=== PATIENT | male | born 1955 | race Caucasian/White ===

== ENCOUNTER 2019-08-12 09:06 | Emergency (ER) | payer OTHER, SELFPAY ==
[2019-08-12] VITALS (35 sets, daily range): BP systolic 180–216; BP diastolic 82–93; PULSE 60–92; RESP 13–26; TEMP 36.8; O2SAT 98–100; BMI 19.2
--- NOTE | 2019-08-12 09:13 | ED_ITS ---
Entered by Halima Rivera, acting as scribe for Wm Hernandez DO HPI - SOB/Dyspnea General: Chief Complaint: Shortness of Breath/Dyspnea Stated Complaint: SOB Time Seen by Provider: 08/12/19 09:13 Source: patient Mode of arrival: ambulatory Limitations: no limitations History of Present Illness: HPI Narrative: 64 yo male presents with shortness of breath. pt states he feels like he can breath fine but he feels like he has something blocking his abdomen. pt states this started yesterday. pt has a appointment scheduled for Wednesday in [place] for atrial flow in his legs, because he states his legs burn while walking up a hill or walking to fast. pt denies any other symptoms at this time. MD elicited complaint: shortness of breath Onset (ago): day(s) (yesterday) Timing: constant Severity: moderate Exacerbating factors: exertion Relieving factors: nothing Associated symptoms: Reports abdominal pain; Deny dizziness, extremity pain, fever(s), palpitations, polydipsia, polyuria or syncope Treatment prior to arrival: none Related Data: Home oxygen amount: none Review of Systems Const: Denies: fever, chills, body aches, fatigue, malaise or night sweats Eyes: Denies: change in vision or blurry vision ENMT: Denies: throat pain, oral sores/lesions, dental pain, nasal discharge or nasal congestion Card: Denies: palpitations, irregular heart rhythm, edema or syncope Resp: Denies: shortness of breath, productive cough, non-productive cough or wheezing GI: Reports: abdominal pain : Denies: flank pain, difficulty urinating, painful urination, urinary frequency, urinary urgency, urinary incontinence or blood in urine Musc: Denies: neck pain, back pain, extremity pain, extremity swelling, joint pain or joint swelling Skin/Breast: Denies: rash, itching or redness Neuro: Denies: headache, numbness in extremities, weakness in extremities, changes in sensation, lack of coordination, difficulty walking, frequent falls, dizziness, vertigo or confusion Psych: Denies: anxiety, depression, loss of interest, visual hallucinations, auditory hallucinations, suicidal ideation or homicidal ideation Endo: Denies: excessive urination, excessive thirst, tired all the time or cold intolerance Madan/Lymph: Denies: easy bruising, easy bleeding, petechiae, enlarged lymph nodes or tender lymph nodes PFSH ED PFSH: Statuses (acute, chronic, etc) shown below reflect problem list status as previously entered and may not be historically accurate Medical History HTN (hypertension) (Acute) Surgical History H/O knee surgery (Acute) Social History Smoking and tobacco status: current every day smoker Physical Exam Const: COMMON NORMALS: average body habitus, oriented x3 and alert GENERAL APPEARANCE: cooperative, comfortable, well kempt and well developed NUTRITIONAL APPEARANCE: obese ORIENTATION/CONSCIOUSNESS: Yes awake, Yes oriented to person and Yes oriented to place HENMT: COMMON NORMALS: normocephalic, head/scalp atraumatic, EAC's normal, TM's normal bilaterally, external nose normal, moist oral mucous membranes and oropharynx normal HEAD & SCALP: normocephalic and atraumatic NOSE: external nose normal EXTERNAL AUDITORY CANAL: EAC's normal TYMPANIC MEMBRANE: TM's normal bilaterally MOUTH: oral and palatal mucosa normal, lip normal and tongue normal THROAT: posterior oropharynx normal and tonsils normal Eye: COMMON NORMALS: PERRL, EOMs intact bilaterally, conjunctivae normal and no scleral icterus CONJUNCTIVA: Yes conjunctivae normal PUPIL: Yes PERRL Neck/C-Spine: COMMON NORMALS: full ROM, no lymphadenopathy, supple, no meningeal signs and thyroid normal THYROID: thyroid normal and asymmetrical Lymph: LYMPHATIC: no lymphadenopathy noted Resp: COMMON NORMALS: normal respiratory effort, no retractions, no use of accessory muscles and clear to auscultation bilaterally AUSCULTATION: clear to auscultation bilaterally Cardio: COMMON NORMALS: regular rate and regular rhythm RATE: regular rate RHYTHM: regular rhythm HEART SOUNDS: no murmurs : COMMON NORMALS: Yes no CVA tenderness BLADDER/KIDNEY EXAM: Yes no CVA tenderness Back/Pelvis: COMMON NORMALS: no CVA tenderness LUMBAR SPINE/LOWER BACK: Yes normal to inspection Extremity: COMMON NORMALS: no clubbing, cyanosis or edema, no calf tenderness and no pedal edema Neuro: COMMON NORMALS: oriented x3 SENSORIUM/ORIENTATION: Yes alert, Yes oriented to person and Yes oriented to place MENINGEAL SIGNS: Yes no meningeal signs Psych: APPEARANCE: Yes well kempt Skin: COMMON NORMALS: no rashes or lesions noted and skin turgor normal GENERAL SKIN EXAM: no rashes or lesions noted and turgor normal Course ED course: He has had this intermittently for several months now. His blood pressure was elevated taken half of a dose of his blood pressure medicine morning made him take the other half as well as give him some hydralazine and did improve enough to let him go home. He is not particularly tachycardic or hypoxic do not believe he has a pulmonary emboli. The rest of exam is otherwise normal he does have a little fluid in his colon suspect he has little gastroenteritis. If he has worsening or change symptoms return he should follow-up with surgery or Dr. Frank for endoscopy. Vital Signs: Vital signs: Vital Signs Temperature 98.2 F 08/12/19 09:11 Pulse Rate 60 08/12/19 12:09 Respiratory Rate 16 08/12/19 12:09 Blood Pressure 190/85 08/12/19 12:09 Pulse Oximetry 100 08/12/19 12:09 MDM - SOB/Dyspnea Lab Data: Labs: Lab Results 08/12/19 08/12/19 08/12/19 Range/Units 09:13 09:13 09:13 WBC 11.3 H (4.0-10.0) 10^3/ uL RBC 4.50 (4.1-5.3) 10^6/u L Hgb 13.3 (11.7-16.6) g/dL Hct 40.1 L (42.0-52.0) % MCV 89.1 (80-94) fL MCH 29.6 (28.0-34.0) pg MCHC 33.2 (30.0-36.0) g/dL RDW 13.8 (12.1-15.1) % Plt Count 443 H (130-400) 10^3/c mm MPV 9.3 (7.4-10.4) fL Neut % (Auto) 65.1 % Lymph % (Auto) 27.0 % Hopkins % (Auto) 6.5 % Eos % (Auto) 0.4 % Baso % (Auto) 0.7 % Neut # (Auto) 7.4 (1.8-7.7) 10^3/u L Lymph # (Auto) 3.1 (0.8-4.8) 10^3/u L Hopkins # (Auto) 0.7 (0.2-0.9) 10^3/u L Eos # (Auto) 0.0 (0.0-0.8) 10^3/u L Baso # (Auto) 0.1 (0.0-0.1) 10^3/u L Nucleated RBC % (a uto) 0 % Nucleated RBCs # 0.0 /100WBC Sodium 137 (136-145) mmol/L Potassium 3.8 (3.5-5.1) mmol/L Chloride 101 (98-107) mmol/L Carbon Dioxide 19 L (22-29) mmol/L Anion Gap 20.8 H (5-19) BUN 13 (8-23) mg/dL Creatinine 1.3 H (0.7-1.2) mg/dL GFR Calculation 55.8 L (90-130) mL/min Glucose 102 (74-106) mg/dL Calcium 10.1 (8.8-10.2) mg/Dl Total Bilirubin 1.1 (0.15-1.2) mg/dL AST 12 (0-40) U/L ALT 8 (0-41) U/L Alkaline Phosphata se 170 H (40-130) IU/L Troponin T Baselin e 8 (0-15) ng/mL Troponin T 120 Min [place] (0-15) ng/mL Delta Troponin T (0-10) ABS# Total Protein 8.5 (6.6-8.7) g/dL Albumin 5.0 (3.5-5.2) g/dL Globulin 3.5 (1.3-4.6) g/dL Lipase 21 (13-60) U/L Influenza Type A A g (Negative) POC Influenza B Ag (Negative) 08/12/19 08/12/19 Range/Units 09:49 11:17 WBC (4.0-10.0) 10^3/ uL RBC (4.1-5.3) 10^6/u L Hgb (11.7-16.6) g/dL Hct (42.0-52.0) % MCV (80-94) fL MCH (28.0-34.0) pg MCHC (30.0-36.0) g/dL RDW (12.1-15.1) % Plt Count (130-400) 10^3/c mm MPV (7.4-10.4) fL Neut % (Auto) % Lymph % (Auto) % Hopkins % (Auto) % Eos % (Auto) % Baso % (Auto) % Neut # (Auto) (1.8-7.7) 10^3/u L Lymph # (Auto) (0.8-4.8) 10^3/u L Hopkins # (Auto) (0.2-0.9) 10^3/u L Eos # (Auto) (0.0-0.8) 10^3/u L Baso # (Auto) (0.0-0.1) 10^3/u L Nucleated RBC % (a uto) % Nucleated RBCs # /100WBC Sodium (136-145) mmol/L Potassium (3.5-5.1) mmol/L Chloride (98-107) mmol/L Carbon Dioxide (22-29) mmol/L Anion Gap (5-19) BUN (8-23) mg/dL Creatinine (0.7-1.2) mg/dL GFR Calculation (90-130) mL/min Glucose (74-106) mg/dL Calcium (8.8-10.2) mg/Dl Total Bilirubin (0.15-1.2) mg/dL AST (0-40) U/L ALT (0-41) U/L Alkaline Phosphata se (40-130) IU/L Troponin T Baselin e (0-15) ng/mL Troponin T 120 Min [place] 10.80 (0-15) ng/mL Delta Troponin T 2.80 (0-10) ABS# Total Protein (6.6-8.7) g/dL Albumin (3.5-5.2) g/dL Globulin (1.3-4.6) g/dL Lipase (13-60) U/L Influenza Type A A g Negative (Negative) POC Influenza B Ag Negative (Negative) Imaging Data^: CXR: Radiologist's impression: [address] [place] [address] XRay Report Signed Patient: Gab Longoria #: [id number] : 7Acct#:[id number] Age/Sex: 64 / MADM Date: 08/12/19 Loc: ERRoom/Bed: Attending Dr: Ordering Provider/Ordering MD: Wm Hernandez DO Date of Service: 08/12/19 Procedure(s): XR chest 1V portable [id number] Accession Number(s): [id number] Report Number: [id number] PROCEDURE INFORMATION: Exam: XR Chest, 1 View Exam date and time: 08/12/2019 9:21 AM Age: 64 years old Clinical indication: Shortness of breath; Additional info: Cehst pain TECHNIQUE: Imaging protocol: XR of the chest Views: 1 view. COMPARISON: CT chest wo con [id number] 02/28/2016 1:42 PM FINDINGS: Lungs: No focal consolidation. Pleural space: Unremarkable. No pleural effusion. No pneumothorax. Heart/Mediastinum: Atherosclerotic calcifications are noted within the aortic arch. No cardiomegaly. Bones/joints: Unremarkable for technique. XR/XR chest 1V portable [id number] IMPRESSION: No acute findings. Dictated By:Ramakrishna Mejia MD Signed By:Ramakrishna Mejia MDSigned Date/Time:08/12/19 1017 DD/ 1016 CT Abd/Pel: Radiologist's impression: [address] [place] [address] CT Scan Report Signed Patient: Gab Longoria #: [id number] : 7Acct#:[id number] Age/Sex: 64 / MADM Date: 08/12/19 Loc: ERRoom/Bed: Attending Dr: Ordering Provider/Ordering MD: Wm Hernandez DO Date of Service: 08/12/19 Procedure(s): CT abdomen pelvis w con* [id number] Accession Number(s): [id number] Report Number: [id number] PROCEDURE INFORMATION: Exam: CT Abdomen And Pelvis With Contrast Exam date and time: 08/12/2019 10:01 AM Age: 64 years old Clinical indication: Abdominal pain; Epigastric; Additional info: Abd paib TECHNIQUE: Imaging protocol: Computed tomography of the abdomen and pelvis with intravenous contrast. Total DLP: 507.94 mGy-cm Radiation optimization: All CT scans at this facility use at least one of these dose optimization techniques: automated exposure control; mA and/or kV adjustment per patient size (includes targeted exams where dose is matched to clinical indication); or iterative reconstruction. Contrast material: VISIPAQUE; Contrast volume: 95 ml; Contrast route: IV; COMPARISON: CT of the chest 02/28/2016. FINDINGS: Lungs: Paraseptal emphysematous change is noted. The visualized lung bases are otherwise clear. Mediastinum: There is a small hiatal hernia. Liver: Subcentimeter hypodensity within the inferior right hepatic lobe is too small to adequately characterize and statistically likely reflects a cyst. Gallbladder and bile ducts: No calcified stones. No ductal dilation. Pancreas: No ductal dilation. Spleen: No splenomegaly. Adrenals: No mass. 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 There is no evidence of hydronephrosis. Stomach and bowel: A few nondilated loops of proximal small bowel are noted with mild wall thickening. There is no evidence of bowel obstruction. Appendix: No evidence of appendicitis. Intraperitoneal space: No free air. No significant fluid collection. Vasculature: There is fusiform dilation of the infrarenal abdominal aorta, which measures up to 2.1 cm in the AP dimension. Extensive aortoiliac and branch vessel atherosclerotic calcifications are noted with scattered mural thickening. Lymph nodes: No enlarged lymph nodes. Bladder: Unremarkable as visualized. Reproductive: Unremarkable as visualized. Bones/joints: No acute fracture. Soft tissues: There is a small amount of fat within the umbilicus. CT/CT abdomen pelvis w con* [id number] IMPRESSION: 1. Few nondilated loops of small bowel with mild wall thickening. Findings may reflect underdistention versus nonspecific enteritis. There is no evidence of bowel obstruction. 2. Extensive aortoiliac atherosclerotic calcifications with fusiform dilation of the infrarenal abdominal aorta which measures up to 2.1 cm. 3. Small hiatal hernia. 4. Additional nonacute findings as detailed above. Radiation Dose CTDIVOL = (mGy): DLP = 507.94 (mGy-cm) Dictated By:Ramakrishna Mejia MD Signed By:Ramakrishna Mejia MDSigned Date/Time:08/12/19 1057 DD/ 1056 Discharge Plan Discharge Patient Disposition: Home, Self-Care Clinical Impression: Gastroenteritis Condition: Stable Prescriptions: New Reglan 10 mg tablet 10 mg PO Q6H 7 Days Qty: 28 RF: 0 No Action losartan 100 mg Tablet 100 mg PO DAILY RF: 0 hydrocodone-acetaminophen 5-325 mg Tablet 1 tab PO TID PRN (Reason: Pain) RF: 0 Discharge Orders: Discharge Order (Routine); Ordered 08/12/19 Ordered By: Wm Hernandez Referrals: Bryan Tripp MD [Primary Care Provider] - Patient Instructions: Metoclopramide (By mouth), Gastroenteritis (ED), Dyspnea (ED) Discharge Date/Time: 08/12/19 12:22 Coding Level of Care Code ED [address] Service for Chg Fwd Exam Problem Focused The documentation recorded by the Miguel anna Bridget Annette, accurately reflects the service I personally performed and the decisions made by Mary richter Curtis L, DO Aug 12, 2019 09:06
--- NOTE | 2019-08-12 09:19 | XRR_ITS ---
PROCEDURE INFORMATION: Exam: XR Chest, 1 View Exam date and time: 08/12/2019 9:21 AM Age: 64 years old Clinical indication: Shortness of breath; Additional info: Cehst pain TECHNIQUE: Imaging protocol: XR of the chest Views: 1 view. COMPARISON: CT chest [facility] [id number] 02/28/2016 1:42 PM FINDINGS: Lungs: No focal consolidation. Pleural space: Unremarkable. No pleural effusion. No pneumothorax. Heart/Mediastinum: Atherosclerotic calcifications are noted within the aortic arch. No cardiomegaly. Bones/joints: Unremarkable for technique. XR/XR chest 1V portable [id number] IMPRESSION: No acute findings.
--- NOTE | 2019-08-12 09:19 | PC.NURSE ---
Pt ripped off blood pressure cuff and yelled take this damn thing off. Pt refusing to have blood pressure taken.
--- NOTE | 2019-08-12 09:21 | ECG_ITS ---
Measurements Intervals [place] Rate: 72 P: 12 MO: 121 QRS: 54 QRSD: 93 T: 69 QT: 390 QTc: [address] DEPRESSION [0.025+ mV ST DEPRESSION] TALL T-WAVES, SUGGESTS HYPERKALEMIA No previous ECG available for comparison Electronically Signed On 08-12-2019 11:29:05 RESUME WRITER by Derek Howard M.D. [id number]
--- NOTE | 2019-08-12 09:39 | PC.NURSE ---
Xray at bedside
[2019-08-12 09:44] LABS: Basophils # 0.1 10^3/uL (0.0-0.1); Basophils % 0.7 %; Eosinophils % 0.4 %; Hematocrit 40.1 % (42.0-52.0); Hemoglobin 13.3 g/dL (11.7-16.6); Lymphocytes # 3.1 10^3/uL (0.8-4.8); Mean Corpuscular HGB Conc 33.2 g/dL (30.0-36.0); Mean Corpuscular Hemoglobin 29.6 pg (28.0-34.0); Mean Corpuscular Volume 89.1 fL (80-94); Mean Platelet Volume 9.3 fL (7.4-10.4); Monocytes # 0.7 10^3/uL (0.2-0.9); Monocytes % 6.5 %; Neutrophils # 7.4 10^3/uL (1.8-7.7); Neutrophils % 65.1 %; Nucleated Red Blood Cells % 0 %; Platelet Count 443 10^3/cmm (130-400); Red Cell Distribution Width 13.8 % (12.1-15.1); White Blood Count 11.3 10^3/uL (4.0-10.0)
--- NOTE | 2019-08-12 09:58 | CTR_ITS ---
PROCEDURE INFORMATION: Exam: CT Abdomen And Pelvis With Contrast Exam date and time: 08/12/2019 10:01 AM Age: 64 years old Clinical indication: Abdominal pain; Epigastric; Additional info: Danielle caceres TECHNIQUE: Imaging protocol: Computed tomography of the abdomen and pelvis with intravenous contrast. Total DLP: 507.94 mGy-cm Radiation optimization: All CT scans at this facility use at least one of these dose optimization techniques: automated exposure control; mA and/or kV adjustment per patient size (includes targeted exams where dose is matched to clinical indication); or iterative reconstruction. Contrast material: VISIPAQUE; Contrast volume: 95 ml; Contrast route: IV; COMPARISON: CT of the chest 02/28/2016. FINDINGS: Lungs: Paraseptal emphysematous change is noted. The visualized lung bases are otherwise clear. Mediastinum: There is a small hiatal hernia. Liver: Subcentimeter hypodensity within the inferior right hepatic lobe is too small to adequately characterize and statistically likely reflects a cyst. Gallbladder and bile ducts: No calcified stones. No ductal dilation. Pancreas: No ductal dilation. Spleen: No splenomegaly. Adrenals: No mass. 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 There is no evidence of hydronephrosis. Stomach and bowel: A few nondilated loops of proximal small bowel are noted with mild wall thickening. There is no evidence of bowel obstruction. Appendix: No evidence of appendicitis. Intraperitoneal space: No free air. No significant fluid collection. Vasculature: There is fusiform dilation of the infrarenal abdominal aorta, which measures up to 2.1 cm in the AP dimension. Extensive aortoiliac and branch vessel atherosclerotic calcifications are noted with scattered mural thickening. Lymph nodes: No enlarged lymph nodes. Bladder: Unremarkable as visualized. Reproductive: Unremarkable as visualized. Bones/joints: No acute fracture. Soft tissues: There is a small amount of fat within the umbilicus. CT/CT abdomen pelvis w con* [id number] IMPRESSION: 1. Few nondilated loops of small bowel with mild wall thickening. Findings may reflect underdistention versus nonspecific enteritis. There is no evidence of bowel obstruction. 2. Extensive aortoiliac atherosclerotic calcifications with fusiform dilation of the infrarenal abdominal aorta which measures up to 2.1 cm. 3. Small hiatal hernia. 4. Additional nonacute findings as detailed above. Radiation Dose CTDIVOL = (mGy): DLP = 507.94 (mGy-cm)
[2019-08-12] MEDS: hyDRALAzine 20 mg/mL INJ 1 mL 10 MG IVP ×2 (09:59→12:06)
[2019-08-12 10:03] LABS: Alanine Aminotransferase 8 U/L (0-41); Alkaline Phosphatase 170 IU/L (40-130); Anion Gap 20.8 (5-19); Aspartate Amino Transferase 12 U/L (0-40); Blood Urea Nitrogen 13 mg/dL (8-23); Calcium 10.1 mg/Dl (8.8-10.2); Carbon Dioxide 19 mmol/L (22-29); Chloride 101 mmol/L (98-107); Globulin 3.5 g/dL (1.3-4.6); Glomerular Filtration Rate 55.8 mL/min (90-130); Glucose 102 mg/dL (74-106); Lipase 21 U/L (13-60); Potassium 3.8 mmol/L (3.5-5.1); Sodium 137 mmol/L (136-145); Total Bilirubin 1.1 mg/dL (0.15-1.2); Total Protein 8.5 g/dL (6.6-8.7)
[2019-08-12 10:05] LABS: Troponin(5th) Baseline 8 ng/mL (0-15)
[2019-08-12] MEDS: ipratropium-albuterol 3 mL Neb INHALATION (10:07)
--- NOTE | 2019-08-12 10:12 | PC.NURSE ---
RT at bedside for tx
[2019-08-12] MEDS: iodixanol 320 mg/mL 100mL Btl IV (10:20)
--- NOTE | 2019-08-12 10:33 | PC.NURSE ---
Pt to CT
--- NOTE | 2019-08-12 10:44 | PC.NURSE ---
Pt returned to room from CT
[2019-08-12 10:46] LABS: Influenza A by IFA Negative (Negative); Influenza B by IFA Negative (Negative)
--- NOTE | 2019-08-12 11:21 | ECG_ITS ---
Measurements Intervals [place] Rate: 75 P: 59 WV: 142 QRS: 41 QRSD: 101 T: 65 QT: 396 QTc: 443 SINUS RHYTHM LEFT VENTRICULAR HYPERTROPHY AND ST-T CHANGE [VOLTAGE CRITERIA PLUS ST/T ABNORMALITY] Compared to ECG 08/12/2019 09:30:18 Left ventricular hypertrophy now present ST (T wave) deviation still present Electronically Signed On 08-12-2019 11:34:08 FRUIT DRYER by Derek Howard M.D. [email or web address]
--- NOTE | 2019-08-12 15:21 | ECG_ITS ---
Measurements Intervals [place] Rate: 75 P: 59 NC: 142 QRS: 41 QRSD: 101 T: 65 QT: 396 QTc: 443 SINUS RHYTHM LEFT VENTRICULAR HYPERTROPHY AND ST-T CHANGE [VOLTAGE CRITERIA PLUS ST/T ABNORMALITY] No previous ECG available for comparison [id number]
--- NOTE | 2019-08-14 13:27 | DCPLANNER ---
manager staffing had message to schedule a follow up appointment for patient with Dr. Frank. manager staffing called the office of Dr. Frank, spoke with Nga, a follow up appointment is scheduled for Thursday, August 22, 2019 at 9:[address] Frank. manager staffing called patient with appointment information.
--- NOTE | 2019-08-28 10:37 | DCPLANNER ---
Appointment scheduled for 08.22.[address] Frank, was cancelled.
== END 2019-08-12 12:22 | disposition home or self-care (01) ==
PROVIDERS: Emergency Provider Family Medicine; Family Provider Family Medicine; PCP Family Medicine
DX: K52.9 Noninfective gastroenteritis and colitis, unspecified (principal); I10 Essential (primary) hypertension; F17.210 Nicotine dependence, cigarettes, uncomplicated
CPT/HCPCS: 36415; 71045; 74177; 80053; 83690; 84484; 85025; 87804; 93005; 94640; 96374; 99284; J0360; J2930; Q9967

== ENCOUNTER 2019-09-28 10:00 | Inpatient (IN) | payer OTHER, SELFPAY ==
[2019-09-28] MEDS: diphenhydrAMINE 50 mg Capsule PO (08:59)
[2019-09-28 09:05] VITALS: BP 208/92; PULSE 73; RESP 16; TEMP 36.7; O2SAT 100; BMI 18.7
[2019-09-28 09:40] LABS: Basophils # 0.1 10^3/uL (0.0-0.1); Basophils % 0.7 %; Eosinophils % 0.3 %; Hematocrit 34.4 % (42.0-52.0); Hemoglobin 11.1 g/dL (11.7-16.6); Lymphocytes # 2.2 10^3/uL (0.8-4.8); Lymphocytes % 18.5 %; Mean Corpuscular HGB Conc 32.3 g/dL (30.0-36.0); Mean Corpuscular Hemoglobin 29.3 pg (28.0-34.0); Mean Corpuscular Volume 90.8 fL (80-94); Mean Platelet Volume 9.4 fL (7.4-10.4); Monocytes # 0.7 10^3/uL (0.2-0.9); Monocytes % 6.1 %; Neutrophils # 8.9 10^3/uL (1.8-7.7); Neutrophils % 74.1 %; Nucleated Red Blood Cells % 0 %; Platelet Count 357 10^3/cmm (130-400); Red Blood Count 3.79 10^6/uL (4.1-5.3); Red Cell Distribution Width 13.4 % (12.1-15.1); White Blood Count 12.1 10^3/uL (4.0-10.0)
[2019-09-28 09:54] LABS: Anion Gap 15.2 (5-19); Blood Urea Nitrogen 12 mg/dL (8-23); Calcium 9.1 mg/dL (8.5-10.5); Carbon Dioxide 22 mmol/L (22-29); Chloride 106 mmol/L (98-107); Glomerular Filtration Rate 51.2 mL/min (90-130); Glucose 107 mg/dL (65-115); Osmolality Calculated 285 mOsm/kg (285-295); Potassium 4.2 mmol/L (3.5-5.1); Sodium 139 mmol/L (136-145)
--- NOTE | 2019-09-28 10:37 | P.HP_ITS ---
Providers/Chief Complaint Admitting Physician: Abiola Thao MD Primary Care Provider: Bryan Tripp MD Chief Complaint: pvd History of Present Illness Gab Longoria is a 64 year old male past medical history significant for continuous tobacco abuse, hypertension who has been struggling for lifestyle limiting claudication referred to Dr. Vásquez for assessment. MARIELENA was performed which turned out to be severely depressed on the left side 0.46 and moderately depressed on the right side 0.[address] scan of the abdomen and pelvis for another reason also reported incidental finding of l bilateral aortic iliac calcification as well with small diffuse abdominal aneurysm. Since patient has been complaining of worsening of claudication after 10 minutes while walking inside the house beyond which he has to sit down for 5 to 10 minutes to get over it and because of the fact it is getting worse with the time and hindering his lifestyle Dr. Vásquez has referred the patient to us for further exploration with peripheral angiogram and intervention if indicated. Today patient came in for peripheral angiogram however his creatinine turned out to be 1.4 baseline creatinine in the past was 1.0 it is the reason I have postponed the test and admit the patient for IV fluid/rehydration before peripheral angiogram in order to prevent contrast-induced nephropathy. I have detailed discussion with the patient regarding all risks benefits alternative for the procedure, I have de tailed and clear discussion regarding drug-coated balloon warning by FDA with increased mortality in patient group, I have discussed moderate chances of contrast-induced nephropathy including transient dialysis. Patient and his has clear understanding about it and they have given me permission to proceed with angiogram. He denies otherwise chest pain PND orthopnea presyncope syncope. He is not aware of any renal problems. He denies any bleeding disorder. Review of Systems Const: Denies: fever, chills or body aches Eyes: Denies: change in vision Card: Denies: chest pain, palpitations or irregular heart rhythm Resp: Denies: shortness of breath or productive cough GI: Denies: abdominal pain or nausea Musc: Denies: neck pain Skin/Breast: Denies: rash Neuro: Denies: headache or numbness in extremities Psych: Denies: anxiety or depression Medications/Allergies Home Medications Medication Instructions Recorded Confirmed Last Taken Type losartan 50 mg PO BID 09/27/19 09/28/19 09/28/19 06:00 History Allergies Allergy/AdvReac Type Severity Reaction Status Date / Time No Known Allergies Allergy Verified 09/28/19 08:32 PFSH Acute PFSH: Medical History (Updated 09/28/19 @ 10:54 by Abiola Thao MD) Erectile dysfunction Essential (primary) hypertension HTN (hypertension) PVD (peripheral vascular disease) Surgical History H/O knee surgery Family History Father Cancer Social History Smoking and tobacco status: current every day smoker cigarettes Packs smoked per day: 0.75 Years cigarettes smoked: 40 Alcohol intake: never Vitals/I&O/Wt Last Vital Signs Temp 98.0 F 09/28/19 09:05 Pulse 73 09/28/19 09:05 Resp 16 09/28/19 09:05 BP 208/92 09/28/19 09:05 Pulse Ox 100 09/28/19 09:05 Weight last 48 hrs Weight 127 lb Physical Exam Narrative: EXAM NARRATIVE: GENERAL: Patient is alert, awake and oriented x3. NECK: No jugular vein distension. HEENT: No cyanosis. No icterus. No pallor. HEART: Regular S1 and S2. No murmur, rub or gallop. LUNGS: Clear to auscultate bilaterally. ABDOMEN: Soft, nontender and nondistended. Positive bowel sounds. No guarding, rebound or tenderness. CENTRAL NERVOUS SYSTEM: Grossly nonfocal. EXTREMITIES: Lower extremities without edema bilaterally. Right ant tibial not palpable, PT palpable. Left anterior and posterior tibial pule absent, normal foot color and temperature Data : 09/28/19 09:10 09/28/19 09:10 A&P Assessment and plan (1) CKD (chronic kidney disease): Patient creatinine came back 1.4 could be prerenal. We will cancel proced ure today. I will start patient on IV fluid 100 mL/h for next 24 hours. I will recheck creatinine in the morning if stable and back to baseline normal we will proceed with peripheral angiogram 7 AM tomorrow Status: Acute Code(s): N18.9 - Chronic kidney disease, unspecified (2) PVD (peripheral vascular disease): Patient has lifestyle limiting claudication with severely depressed MARIELENA. It is hindering his lifestyle to the extent that he cannot walk much more than 10 minutes. He has evidence of peripheral vascular disease on the CT abdomen, we will proceed with peripheral angiogram in the morning and if indicated percutaneous intervention to revascularize tomorrow if creatinine comes back within normal unacceptable range. Status: Acute Code(s): I73.9 - Peripheral vascular disease, unspecified (3) HTN (hypertension): I will hold ARB and start him on amlodipine. Further plan will be advised Status: Acute Code(s): I10 - Essential (primary) hypertension Attestations Medical Necessity Statement*: I am expecting his stay to cross more than 2 midnights Coding Level of Care Code New Pt Acute Neuropsychology Medical Consultant for Chg Fwd Patient Type New History Expanded Problem Focused Exam Expanded Problem Focused Medical Decision Making Moderate Complexity Diagnoses CKD (chronic kidney disease) N18.9 PVD (peripheral vascular disease) I73.9 HTN (hypertension) I10
--- NOTE | 2019-09-28 10:40 | SUR.PREOP ---
TODAY'S PERIPHERAL ANGIOGRAM WILL BE RESCHEDULED TO TOMORROW, 09/29/2019 AT 0700, PER DR SOL DUE TO ELEVATED CREATININE. DR SOL SPOKE WITH THE PATIENT AND HIS SIGNIFICANT OTHER AND THEY BOTH VERBALIZED THEIR UNDERSTANDING. SCHEDULING WAS NOTIFIED OF THE CHANGE. REPORT WAS CALLED TO EDD RAYMUNDO AND THE PATIENT WAS TRANSFERRED VIA WHEELCHAIR TO ROOM 111-2.
[2019-09-28] MEDS: sodium chloride 0.9% 1,000 ML 100 ML IV (11:50)
[2019-09-28 15:31] VITALS: TEMP 37
[2019-09-28 15:32] VITALS: BP 205/94; PULSE 73; RESP 20; O2SAT 99
[2019-09-28 20:00] VITALS: BP 220/100; PULSE 72; RESP 15; TEMP 36.8; O2SAT 98
[2019-09-28 21:23] VITALS: BP 201/95
[2019-09-28] MEDS: cloNIDine 0.1 mg Tablet PO (21:23)
--- NOTE | 2019-09-28 21:40 | PC.NURSE ---
DR BLACKMAN WAS CALLED FOR CLARIFICATION OF NS THAT WAS RUNNING. THE DR WANTS TO HOLD FLUIDS UNTIL THE PROCEDURE. FLUIDS WERE STOPPED. BP WAS 201/95 PRN CLONIDINE 0.1MG WAS GIVEN. WILL CONTINUE TO MONITOR.
[2019-09-29] VITALS (106 sets, daily range): BP systolic 146–195; BP diastolic 65–91; PULSE 66–94; RESP 9–26; TEMP 36.6–36.7; O2SAT 95–100
[2019-09-29] MEDS: hyDRALAzine 20 mg/mL INJ 1 mL 10 MG IVP (01:50)
[2019-09-29] MEDS: sodium chloride 0.9% 1,000 ML 100 ML IV ×3 (01:55→17:05)
--- NOTE | 2019-09-29 02:15 | PC.NURSE ---
patients blood pressure has remained high (187 -200 systolically even after administration of clonidine. called Dr. Rodney and spoke with her about the patients bp, and clarification of fluid order to keep it going as her patients h & p or per orders in sep. fluids ccontinued, Dr. Rodney said to give him a dose of hydralazine 10 mg ivp x1. bp taken and dose administered. Will continue to monitor blood pressures.
[2019-09-29 05:46] LABS: Anion Gap 13.3 (5-19); Blood Urea Nitrogen 11 mg/dL (8-23); Calcium 8.8 mg/dL (8.5-10.5); Carbon Dioxide 22 mmol/L (22-29); Chloride 109 mmol/L (98-107); Glomerular Filtration Rate 61.1 mL/min (90-130); Glucose 99 mg/dL (65-115); Osmolality Calculated 286 mOsm/kg (285-295); Potassium 4.3 mmol/L (3.5-5.1); Sodium 140 mmol/L (136-145)
[2019-09-29] MEDS: diphenhydrAMINE 50 mg Capsule PO (06:34)
--- NOTE | 2019-09-29 07:07 | XACV_ITS ---
Ht: 175 cm Wt: 58 kg BSA: 1.66 m2 Any Known Allergies: No known allergies Gender: Male : 1955 Exam Type: Invasive Peripheral Vascular Procedure(s): Procedure Description: Peripheral Cath Diagnostic Procedure Procedure Description: Abdominal aortic angiography Procedure Description: Iliac arterial aortic angiography Procedure Description: Peripheral vascular Intervention Procedure Description: PV Balloon Procedure Description: PV Stent Exam Priority: Routine Lower Extremity Interventional Findings Successful balloon angioplasty using nondrug coated and drug-coated balloon of right external iliac artery performed since we did not achieved good result for luminal redundancy Omnilink stent was placed. Excellent angiographic result was achieved. F or instruments please see inventory. During the procedure patient blood pressure went very high which was treated with IV nitroglycerin in the form of gtt. 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 Patient has left severe renal artery stenosis. Patient has history of uncontrolled malignant hypertension despite of optimization of medicine it is therefore recommended to proceed with renal artery stenting. Since patient was under influence of medicine we deferred it for another time as we are going to discuss all the risk benefit and alternative for the procedure in the form of consent. Conclusions Severe claudication of both legs despite of optimization of medical therapy, uncontrolled malignant hypertensionSevere life style limiting claudication ( Silvis grade II, category 4:Britany stage IIII. )Procedure SummaryRight common femoral artery was used to performed peripheral angiogram, multiple plain balloon angioplasty of Right external iliac artery followed by stent placement.#1 Abdominal aortic aneurysm: Moderate #2 Right renal artery is chronically occluded , Left renal artery has severe 90% high grade calcified stenosis. #3 Right common iliac artery has mild to moderate stenosis#4 Left common iliac artery has severe short stenosis #5 Left and right internal iliac artery has severe disease#6 Right external iliac artery has high-grade more than 85% highly calcified stenosis which is the culprit vessel#7 Right common femoral artery has luminal irregularity, Left common iliac artery has distal moderate lesion#8 Left and right profunda femoral artery has luminal irregularity#9 Left SFA has chronic 100% ostial occlusion, it reconstitute in the distal SFA segment #10 Right SFA has luminal irregularity. #11 Left and right popliteal artery has luminal irregularities#12 Left and tibioperoneal trunk has luminal irregularity with two vessel runoff below the knee. Recommendations 1-Return to inpatient for close monitoring and routine cath care2-Risk factor modification for secondary prevention3-Statin and aspirin 81 mg life-long, if tolerated4-Patient was pre-loaded with 300 mg of Plavix, continue Plavix 75mg p.o. daily for at least three months. 5-Continue optimal medical management6-Follow up with Dr. Thao in 2 weeks and your primary care in 10 days. Hemodynamic Data Phase:Rest AO : 178.0 mmHg / 53.0 mmHg ( 99.0 mmHg ) @ 1:55:00 AM 257.0 mmHg / 103.0 mmHg ( 169.0 mmHg ) @ 2:47:00 AM 207.0 mmHg / 69.0 mmHg ( 124.0 mmHg ) @ 3:00:00 AM 201.0 mmHg / 73.0 mmHg ( 121.0 mmHg ) @ 3:05:00 AM 202.0 mmHg / 76.0 mmHg ( 126.0 mmHg ) @ 3:06:00 AM 198.0 mmHg / 71.0 mmHg ( 119.0 mmHg ) @ 3:09:00 AM 196.0 mmHg / 74.0 mmHg ( 121.0 mmHg ) @ 3:12:00 AM 193.0 mmHg / 69.0 mmHg ( 115.0 mmHg ) @ 3:14:00 AM 186.0 mmHg / 67.0 mmHg ( 111.0 mmHg ) @ 3:27:00 AM 139.0 mmHg / 74.0 mmHg ( 104.0 mmHg ) @ 3:32:00 AM Access Site Site: Right Femoral artery Sheath Size: 6 Fr Hemost... Method: Suture Hemost... Success: Successful Procedure Details Findings Procedure Consent Obtained. Pre-Procedure Time Out. Identified patient by full name and date of as verbalized by the patient/guarantor. Does the consent match the physician's order: Yes. Accurate & Complete Informed Consent: Yes. Inpatient/Outpatient History & Physical on Chart: Yes. If H&P is completed, is and addenduem needed: No; If yes, is the addendum complete: N/A. Visualize and Verify Site with Patient/Guarantor: N/A. Relevant Radiology Images available: N/A. Pre-op teaching completed and patient verbalized understanding. The risks, benefits, and alternatives of sedation and/or procedure were discussed by physician. The patient agrees to continue. Procedure started. Correct patient, site and procedure confirmed by cath team. PERRLA. 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 Lungs clear x 5 lobes. IV Site on Arrival: 18 gauge in the left anticubital. IV Fluids: 0.9% NaCl at KVO. 600 mL infused prior to senior label specialist. Pre Procedural Pulses: bilateral dorsalis pedis was Doppled. Pre Procedural Pulses: bilateral posterior tibial was Doppled. Oxygen started at 2liters/min via nasal canula. bilateral groins was prepped with chloroprep then draped in the usual sterile fashion. Physician notified. Baseline sample Acquired. HR: 90 BPM. Equipment: Peripheral. Physician arrived. Physician scrubbed in. Time out performed with cath team. Lidocaine 1% infiltrated to the right groin. Arterial access obtained with micropuncture set. 5F Contra inserted. Wire out. Glidewire inserted. Abdominal aortogram performed in AP @ 10 mL/sec for a total of 30 mL. Catheter removed over the glide wire. Inflation number : 1 A AB ARMADA 35 OTW [id number] was prepped and advanced across the Common Iliac, Right , then inflated to 10 NANDO for 2:03 seconds. Balloon out. Abdominal angiogram 10 ml for total of 20 ml to check results. Patient's family unavailable. Inflation number : 2 A AB ARMADA 35 OTW [id number] was prepped and advanced across the Common Iliac, Right , then inflated to 9 NANDO for 1:02 seconds. Results checked. SEEKER catheter inserted. Hand injection performed. SEEKER catheter removed over glidewire. Inflation number : 3 A BARD 6FR Lutinox [id number] drug coated balloon was prepped and advanced across the Common Iliac, Right , then inflated to 6 NANDO for 2:04 seconds. Inflation Number : 4 A AB OMNILINK STENT [id number] -Lot Number# [id number] (exp date 11/22/2020) was prepped and advanced across the Common Iliac, Right. The stent was deployed at 11 NANDO for 1:01 seconds. Stent balloon out. Abdominal aortogram performed in AP @ 10 mL/sec for a total of 20 mL. Wire inserted. Physician scrubbed out. A Suture was successful obtaining hemostatsis at the Right Femoral artery insertion site. Sheath(s) sutured into position with 2-0 silk and sterile 4x4's and Op-site applied over the site. No oozing or signs and symptoms of hematoma noted. Arterial sheath flushed and connected to tranducer and pressure bag with heparinized saline. Post Procedure: Pulses reassessed and unchanged. PERRLA. 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 No VTE prophylaxis required. Total IV fluids: 250 mL. Post-op diagnosis: severe PVD, with lifestyle limiting claudication. Complications: none. Estimated blood loss: 5mL-10mL. Procedure completed. Patient transferred by bed to 1st floor. Vital chart was stopped. Procedure Medications Start: 7:35 AM Stop: 7:35 AM Medication: Versed Amount: 1 mg Route: I.V. Start: 7:35 AM Stop: 7:35 AM Medication: Fentanyl Amount: 50 mcg Route: I.V. Start: 7:41 AM Stop: 7:41 AM Medication: Versed Amount: 1 mg Route: I.V. Start: 7:41 AM Stop: 7:41 AM Medication: Fentanyl Amount: 50 mcg Route: I.V. Start: 8:03 AM Stop: 8:03 AM Medication: Heparin Amount: 4000 units Route: I.V. Start: 8:14 AM Stop: 8:14 AM Medication: Versed Amount: 1 mg Route: I.V. Start: 8:15 AM Stop: 8:15 AM Medication: Fentanyl Amount: 50 mcg Route: I.V. Start: 8:34 AM Stop: 8:34 AM Medication: Versed Amount: 1 mg Route: I.V. Start: 8:34 AM Stop: 8:34 AM Medication: Fentanyl Amount: 50 mcg Route: I.V. Start: 8:47 AM Stop: 8:47 AM Medication: Hydralazine Amount: 10 mg Route: I.V. Start: 8:48 AM Stop: 8:48 AM Medication: Fentanyl Amount: 50 mcg Route: I.V. Start: 8:53 AM Stop: 8:53 AM Medication: Fentanyl Amount: 50 mcg Route: I.V. Start: 8:57 AM Stop: 8:57 AM Medication: Versed Amount: 1 mg Route: I.V. Start: 9:01 AM Stop: 9:01 AM Medication: Nitrogylcerin Amount: 10 mcg/min Route: I.V. drip Start: 9:03 AM Stop: 9:03 AM Medication: Nitrogylcerin Amount: 20 mcg/min Route: I.V. drip Start: 9:07 AM Stop: 9:07 AM Medication: Nitrogylcerin Amount: 30 mcg/min Route: I.V. drip Start: 9:11 AM Stop: 9:11 AM Medication: Nitrogylcerin Amount: 40 mcg/min Route: I.V. drip Start: 9:11 AM Stop: 9:11 AM Medication: Versed Amount: 1 mg Route: I.V. Start: 9:17 AM Stop: 9:17 AM Medication: Nitrogylcerin Amount: 60 mcg/min Route: I.V. drip Start: 9:22 AM Stop: 9:22 AM Medication: Nitrogylcerin Amount: 80 mcg/min Route: I.V. drip Start: 9:28 AM Stop: 9:28 AM Medication: Nitrogylcerin Amount: 100 mcg/min Route: I.V. drip Start: 9:29 AM Stop: 9:29 AM Medication: Hydralazine Amount: 10 mg Route: I.V. I, the attending physician, have reviewed and verified all procedure medications. Yes, all medications given per verbal order History/Risk Factors Hypertension: Yes Dyslipidemia: Yes Peripheral Arterial Disease (PAD): Yes Myocardial Infarction (NH): No Obesity: No Renal Disease: Yes Tobacco Use: Current/Recent(w/in 1 year) Prior Interventions PCI: No CABG: No Valve Surgery: No Report Signatures Finalized by:Abiola Thao MD on 10/06/2019 7:46:57 PM
[2019-09-29] MEDS: aspirin 81 mg EC Tablet PO (10:03)
[2019-09-29] MEDS: cloNIDine 0.1 mg Tablet PO (10:03)
[2019-09-29] MEDS: clopidogrel 300 mg Tablet PO (10:03)
[2019-09-29] MEDS: HYDROcodone-acetaminophen 5-325 mg Tablet 1 TAB PO ×2 (10:04→18:38)
[2019-09-29 12:43] LABS: Partial Thromboplastin Time 40.9 SECONDS (23.9-36.7)
[2019-09-29] MEDS: fentaNYL 50 mcg/mL INJ 2mL IVP (13:05)
--- NOTE | 2019-09-29 16:48 | PC.NURSE ---
notified Dr stallworth of patients contniued blood pressure of 180's over 70's instructions to continue the mendoza drip at 90 mcg/min and start coreg 6.25 BID
[2019-09-29] MEDS: amlodipine 10 mg Tablet PO (17:05)
[2019-09-29] MEDS: nitroglycerin drip 50 MG/250 ML PREMIX 27 MG IV (18:31)
--- NOTE | 2019-09-29 18:41 | PM.PN ---
Subjective Subjective: Interval history: Blood pressures started escalating again in this morning. He is off the nitro drip systolic blood pressure is around 190. Vitals/I&O/Wt Last Vital Signs Temp 98 F 09/29/19 04:00 Pulse 83 09/29/19 16:30 Resp 17 09/29/19 16:30 BP 180/82 09/29/19 16:30 Pulse Ox 97 09/29/19 16:30 09/29/19 09/29/19 09/29/19 06:59 14:59 22:59 Intake Total 1176.667 / 1176.667 240 / 1416.667 Output Total 300 / 300 Balance 1176.667 / 1176.667 -60 / 1116.667 Weight last 48 hrs Weight 127 lb Physical Exam Narrative: EXAM NARRATIVE: GENERAL: Patient is alert, awake and oriented x3. NECK: No jugular vein distension. HEENT: No cyanosis. No icterus. No pallor. HEART: Regular S1 and S2. No murmur, rub or gallop. LUNGS: Clear to auscultate bilaterally. ABDOMEN: Soft, nontender and nondistended. Positive bowel sounds. No guarding, rebound or tenderness. CENTRAL NERVOUS SYSTEM: Grossly nonfocal. EXTREMITIES: Lower extremities without edema bilaterally. Right ant tibial palpable, PT palpable. 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 He also has 90% stenotic left renal artery to his Only viable kidney which may also be a contributing factor to worsening of creatinine. His creatinine today is 1.0 which has improved from 1.4. Status: Acute Code(s): N18.9 - Chronic kidney disease, unspecified (2) PVD (peripheral vascular disease): Patient underwent peripheral angiogram today.. He was found to have chronically occluded right renal artery, 90% severity stenotic left renal artery, moderate abdominal aneurysm and severe peripheral vascular disease of both iliacs left SFA. He had episode of uncontrolled hypertension for which he was started on nitro drip. He is status post balloon angioplasty and stent placement in the left External iliac artery for hemodynamically significant severe stenosis and lifestyle limiting claudication. On today's visit he is feeling much better and the right leg. He has good palpable in anterior and posterior tibial pulse on the right side. Status: Acute Code(s): I73.9 - Peripheral vascular disease, unspecified (3) HTN (hypertension): Blood pressure not well controlled. Losartan was stopped secondary to worsening of creatinine. I will optimize Coreg and scheduled clonidine as 3 times a day. If blood pressure remains below 150 we will discharge him today to bring him back for renal artery Stenotic intervention. Status: Acute Code(s): I10 - Essential (primary) hypertension Attestations Medical Necessity Statement*: Patient blood pressure is not optimally controlled we'll optimize medicine. He requires continuation hospitalization for that Coding Level of Care Code Established Pt Acute [facility] for Chg Fwd Patient Type Established History Expanded Problem Focused Exam Expanded Problem Focused Medical Decision Making Moderate Complexity Diagnoses CKD (chronic kidney disease) N18.9 PVD (peripheral vascular disease) I73.9 HTN (hypertension) I10
--- NOTE | 2019-09-29 19:39 | PC.NURSE ---
notified Doctor basim of a delay on medication administration instructions to dc coreg for now and report blood pressures in 3 hours and start nitro drip per protocol and continue dose from laboratory technology teacher 90 mcg/min
[2019-09-29] MEDS: atorvastatin 40 mg Tablet 20 MG PO (21:52)
[2019-09-29] MEDS: carvedilol 3.125 mg Tablet PO (21:52)
[2019-09-30] VITALS (13 sets, daily range): BP systolic 140–198; BP diastolic 66–100; PULSE 78–102; RESP 16–22; TEMP 36.6–36.8; O2SAT 95–99
[2019-09-30] MEDS: sodium chloride 0.9% 1,000 ML 100 ML IV (02:28)
[2019-09-30] MEDS: HYDROcodone-acetaminophen 5-325 mg Tablet 1 TAB PO ×3 (05:13→18:14)
[2019-09-30 05:44] LABS: Basophils # 0.1 10^3/uL (0.0-0.1); Basophils % 0.3 %; Eosinophils # 0.1 10^3/uL (0.0-0.8); Hematocrit 31.4 % (42.0-52.0); Hemoglobin 10.2 g/dL (11.7-16.6); Lymphocytes # 1.5 10^3/uL (0.8-4.8); Lymphocytes % 10.6 %; Mean Corpuscular HGB Conc 32.5 g/dL (30.0-36.0); Mean Corpuscular Hemoglobin 29.2 pg (28.0-34.0); Mean Platelet Volume 9.6 fL (7.4-10.4); Monocytes # 0.8 10^3/uL (0.2-0.9); Monocytes % 5.6 %; Neutrophils # 11.9 10^3/uL (1.8-7.7); Neutrophils % 81.9 %; Nucleated Red Blood Cells % 0 %; Platelet Count 301 10^3/cmm (130-400); Red Blood Count 3.49 10^6/uL (4.1-5.3); Red Cell Distribution Width 13.5 % (12.1-15.1); White Blood Count 14.6 10^3/uL (4.0-10.0)
[2019-09-30 05:59] LABS: Blood Urea Nitrogen 8 mg/dL (8-23); Calcium 8.2 mg/dL (8.5-10.5); Carbon Dioxide 21 mmol/L (22-29); Chloride 107 mmol/L (98-107); Glomerular Filtration Rate 67.6 mL/min (90-130); Glucose 117 mg/dL (65-115); Osmolality Calculated 281 mOsm/kg (285-295); Sodium 137 mmol/L (136-145)
[2019-09-30] MEDS: amlodipine 10 mg Tablet PO (08:39)
[2019-09-30] MEDS: aspirin 81 mg EC Tablet PO (08:39)
[2019-09-30] MEDS: clopidogrel 75 mg Tablet PO (08:39)
[2019-09-30] MEDS: carvedilol 3.125 mg Tablet PO ×2 (08:39→12:26)
[2019-09-30] MEDS: cloNIDine 0.1 mg Tablet PO ×3 (12:25→20:27)
[2019-09-30] MEDS: carvedilol 6.25 mg Tablet PO ×2 (17:07→20:41)
--- NOTE | 2019-09-30 20:15 | PC.NURSE ---
Dr. Thao at nurses' station. Order received to give patient a one time dose of 6.25mg of Coreg. Medication given as ordered after this nurse explained to patient the reason why and patient voicing understanding. Will monitor.
[2019-09-30] MEDS: atorvastatin 40 mg Tablet 20 MG PO (20:27)
[2019-10-01 05:07] VITALS: BP 159/69; PULSE 75; RESP 16; TEMP 36.9; O2SAT 98
[2019-10-01 07:36] VITALS: BP 207/93; PULSE 79; RESP 20; TEMP 36.5; O2SAT 96
[2019-10-01 08:08] VITALS: BP 173/83
[2019-10-01] MEDS: aspirin 81 mg EC Tablet PO (08:08)
[2019-10-01] MEDS: clopidogrel 75 mg Tablet PO (08:08)
[2019-10-01] MEDS: cloNIDine 0.1 mg Tablet PO (08:08)
[2019-10-01] MEDS: amlodipine 10 mg Tablet PO (08:08)
[2019-10-01] MEDS: carvedilol 6.25 mg Tablet PO (08:09)
[2019-10-01 11:45] VITALS: BP 131/61; PULSE 71; RESP 18; TEMP 36.7; O2SAT 98
[2019-10-01] MEDS: HYDROcodone-acetaminophen 5-325 mg Tablet 1 TAB PO (12:21)
[2019-10-01 13:26] VITALS: BP 131/61; PULSE 71; RESP 18; TEMP 36.7; O2SAT 98
--- NOTE | 2019-10-01 19:15 | PM.DCS ---
Discharge Providers Date of Admission: 09/28/19 10:00 Date of Discharge: October 01, 2019 Attending Provider at Admission: Abiola Thao MD Attending Provider at Discharge: Abiola Thao MD Primary Care Provider: Bryan Tripp MD Diagnoses at Discharge Discharge Diagnosis (1) CKD (chronic kidney disease): Status: Acute (2) PVD (peripheral vascular disease): Status: Acute (3) HTN (hypertension): Status: Acute Reason for Visit Reason for Visit: Reason For Visit: pvd Hospital Course Hospital Course: Patient underwent peripheral angiogram Day before yesterday for lifestyle limiting claudication, he was also noted to have uncontrolled Malignant hypertension . Upon admission his creatinine was 1.4 therefore he was admitted for IV hydration before proceeding with peripheral angiogram next day. Losartan was also stopped. Creatinine was improved. Patient underwent peripheral angiogram next morning, he was found to have chronically occluded right renal artery, 90% severely stenotic left renal artery, moderate abdominal aneurysm and severe peripheral vascular disease of both iliacs left SFA was chronically occluded. He had episode of uncontrolled hypertension for which he was started on nitro drip. Right external iliac artery which was severely diseased with significant stenosis was treated with balloon angioplasty followed by stent placement.It was suggested that patient will be brought back for renal artery intervention since he has worsening of renal function in the solitary kidney with severe knee disease renal artery//renal artery stenosis and uncontrolled malignant hypertension not under control with multiple medications. According to the patient he has uncontrolled hypertension for long period of time and most of the time his systolic blood pressure remains above 180. Postop course was complicated by malignant uncontrolled hypertension. He was started on nitroglycerin with. His medications were optimized. Over next 48 hours his blood pressure got under control this morning his systolic blood pressure was around 130. Patient is being discharged home with plan to bring him back within next week for left renal artery intervention with stent placement. I have detail discussion with the patient all the risk benefit and alternative for the procedure. Patient understand the risk Renal artery dissection occlusion in acute phase and stent thrombosis leading to worsening of kidney function dialysis. He understood it fully and would like to proceed with it. We will schedule him over next few days. Physical Exam Narrative: EXAM NARRATIVE: GENERAL: Patient is alert, awake and oriented x3. NECK: No jugular vein distension. HEENT: No cyanosis. No icterus. No pallor. HEART: Regular S1 and S2. No murmur, rub or gallop. LUNGS: Clear to auscultate bilaterally. ABDOMEN: Soft, nontender and nondistended. Positive bowel sounds. No guarding, rebound or tenderness. CENTRAL NERVOUS SYSTEM: Grossly nonfocal. EXTREMITIES: Lower extremities without edema bilaterally. Right ant tibial palpable, PT palpable. Left anterior and posterior tibial pule absent, normal foot color and temperature Discharge Data Data Completed and Pending: Pending at discharge Category Date Time Status SENIOR [facility]CH[facility] request for service Routin e Exams 09/29/19 07:07 Taken Vitals: Last Vital Signs Temp 98.0 F 10/01/19 13:26 Pulse 71 10/01/19 13:26 Resp 18 10/01/19 13:26 BP 131/61 10/01/19 13:26 Pulse Ox 98 10/01/19 13:26 Discharge Plan Discharge Patient Disposition: Home, Self-Care Prescriptions: New atorvastatin 40 mg Tablet 20 mg PO BEDTIME Qty: 30 RF: 3 clonidine HCl 0.1 mg Tablet 0.1 mg PO TID Qty: 60 RF: 3 carvedilol 6.25 mg Tablet 12.5 mg PO BID Qty: 60 RF: 3 clopidogrel 75 mg Tablet 75 mg PO DAILY Qty: 30 RF: 3 aspirin 81 mg Tablet,Delayed Release (Dr/Ec) 81 mg PO DAILY Qty: 30 RF: 3 amlodipine 10 mg Tablet 10 mg PO DAILY Qty: 30 RF: 3 Discontinued clonidine HCl 0.1 mg tablet 0.1 mg PO BID PRN (Reason: Hypertension) RF: 0 losartan 100 mg tablet 50 mg PO BID RF: 0 Discharge Orders: Discharge Order (Routine); Ordered 10/01/19 Ordered By: Abiola Thao Referrals: Nga Grayson FNP [Nurse Practitioner] - 1 week (You will have a procedure check with Nga grayson at [facility] to be seen in 1 week. You will also go over you next procedure with Dr. Thao at that time. If you haven't heard from them by Wednesday afternoon, please give them a call at [phone]) Discharge Diet: Low Salt Patient Instructions: Clonidine (By mouth), Aspirin (By mouth), Amlodipine (By mouth), Atorvastatin (By mouth), Carvedilol (By mouth), Clopidogrel (By mouth), Hypertension, Peripheral Vascular Stent Placement (DC), Peripheral Vascular Angioplasty (DC), Post Angiogram Home Care Instructions Activity Restrictions/Additional Instructions: Do not lift anything over 10 pounds for the next 3 days Discharge Date/Time: 10/01/19 13:38 Discharge Attestations Time Spent in Discharge Care*: greater than 30 min Quality Metrics Clinical Quality Measures During this hospital stay, did patient experience: None Coding Level of Care Code New Pt Acute Specialist Physician for Chg Fwd Patient Type New History Detailed Exam Detailed Medical Decision Making Moderate Complexity Diagnoses CKD (chronic kidney disease) N18.9 PVD (peripheral vascular disease) I73.9 HTN (hypertension) I10
== END 2019-10-01 13:38 | disposition home or self-care (01) | DRG 254 ==
LOC: CSU 10:37
PROVIDERS: Admitting Provider Internal Medicine Cardiovascular Disease; Family Provider Family Medicine; PCP Family Medicine; Visit Provider Internal Medicine Cardiovascular Disease
PROC: B4001ZZ Plain Radiography of Abdominal Aorta using Low Osmolar Contrast (ICD-10-PCS; principal; 2019-09-29 07:00)
PROC: B4001ZZ Plain Radiography of Abdominal Aorta using Low Osmolar Contrast (ICD-10-PCS; 2019-09-29 07:00)
DX: I73.9 Peripheral vascular disease, unspecified (principal); N18.9 Chronic kidney disease, unspecified; I12.9 Hypertensive chronic kidney disease with stage 1 through stage 4 chronic kidney disease, or unspecified chronic kidney disease
CPT/HCPCS: 12345; 36415; 37221; 75625; 80048; 85025; 85730; 96375; C1725; C1769; C1876; C1887; C1894; C2623; J0360; J1644; J2001; J2250; J3010; J3490; J7030; Q0163; Q9967

== ENCOUNTER 2019-10-05 07:36 | Day surgery (SDC) | payer OTHER, SELFPAY ==
[2019-10-04 14:54] VITALS: BMI 18.7
[2019-10-05] VITALS (22 sets, daily range): BP systolic 135–176; BP diastolic 62–87; PULSE 61–75; RESP 16–20; TEMP 36.6–36.9; O2SAT 96–99
--- NOTE | 2019-10-05 06:00 | XACV_ITS ---
Ht: 175 cm Wt: 58 kg BSA: 1.66 m2 Gender: Male : 1955 Any Known Allergies: No known allergies Exam Priority: Routine Procedure(s): Procedure Description: Diagnostic procedure Procedure Description: Left Heart Catheterization Procedure Description: Peripheral Cath Diagnostic Procedure Procedure Description: Renal Angiography Diagnostic Cath Status: Elective PCI Indication: Other Interventional Findings Right radial approach was used to engage left renal artery using JR 4 guide. After crossing the lesion with wire direct stenting with 4.0x12 [place] Integrity stent was performed at high NANDO of 14. Excellent angiographic result with good flow was achieved. 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 Gab Longoria is a 64 year old male Past medical history significant for severe peripheral vascular disease, aortic aneurysm, uncontrolled malignant hypertension with worsening of renal function, history of chronically 100% occluded right Renal artery leading to nonfunctional right kidney and history of left severely stenotic 90% renal artery underwent renal artery percutaneous angioplasty and stent placement . Recommendations 1-Return to inpatient for close monitoring and routine cath care2-Risk factor modification for secondary prevention3-Statin and aspirin 81 mg life-long, if tolerated4-Continue Plavix 75mg p.o. daily for at least one year. We will assess at the end of one year again to continue if further or not5-Continue optimal medical management6-Follow up with Dr. Thao in four weeks and your primary care in 10 days. Clinical Evaluation EBL: 5mL-10mL Procedural Details Procedure Consent Obtained. Hemodynamic formulas in Rest were re-calculated based on hemoglobin value from 09/30/2019 5:06:00 AM. Pre-Procedure Time Out. Identified patient by full name and date of as verbalized by the patient/guarantor. Does the consent match the physician's order: Yes. Accurate & Complete Informed Consent: Yes. Inpatient/Outpatient History & Physical on Chart: Yes. If H&P is completed, is and addenduem needed: N/A; If yes, is the addendum complete: N/A. Visualize and Verify Site with Patient/Guarantor: N/A. Relevant Radiology Images available: N/A. Pre-op teaching completed and patient verbalized understanding. The risks, benefits, and alternatives of sedation and/or procedure were discussed by physician. The patient agrees to continue. Procedure started. Correct patient, site and procedure confirmed by cath team. PERRLA. 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 Lungs clear x 5 lobes. IV Site on Arrival: 18 gauge in the left anticubital. Pre Procedural Pulses: left dorsalis pedis was Doppled. Pre Procedural Pulses: right dorsalis pedis was 2+. Pre Procedural Pulses: left posterior tibial was Doppled. Pre Procedural Pulses: right posterior tibial was 2+. Pre Procedural Pulses: bilateral radial was 2+. Oxygen started at 2liters/min via nasal canula. bilateral groins was prepped with chloroprep then draped in the usual sterile fashion. right radial was prepped with chloroprep then draped in the usual sterile fashion. Physician notified. Baseline sample Acquired. HR: 80 BPM. Physician arrived. Physician scrubbed in. Immediate Pre-Procedure Time Out. Correct Patient: Yes; Correct Procedure: Yes; Correct Site: Yes; Correct Patient Position: Yes; Correct Supplies: Yes; Dried Flammable Prep: Yes; Blood Products Available: N/A;. Lidocaine 1% infiltrated to the right radial. Arterial access obtained. 6 persian JR 4 guide catheter was inserted over the wire. hand injection performed. Guide catheter out. 6F pigtale inserted. abdominal shot 10mL/sec for a total of 20mL. 6F Pigtale out. [place] guidewire was advanced through the guide catheter to lesion in the Left Renal artery. Dr. Howard notified. Dr. Howard arrived. Inflation Number : 1 A LUCIO R WAYNE 4.0X12 NATE -Lot Number# [id number] exp date:03-13-2021 was prepped and advanced across the Proximal Renal, Left. The stent was deployed at 14 NANDO for 0:19 seconds. Stent balloon out over wire. Wire out. TR band placed. Hemostasis obtained. PERRLA. 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 No VTE prophylaxis required. Medication's Wasted: Lidocaine 1% = 18 mL. Medication's Wasted: Nitro = 49.8 mg. Total IV fluids: 150 mL. Contrast type used: Visipaque 320 mgI/mL, 500 mL bottle. Contrast Material : Visipaque 97 ml. Complications: none. Estimated blood loss: 5mL-10mL. A TR Band was successful obtaining hemostatsis at the Right Radial artery insertion site. Post-op diagnosis: renal artery angioplasy. ACT drawn. Results 166 seconds. Therapeutic limits - pre-heparin administration 90-150 seconds and monitoring heparin during a vascular procedure >250 seconds. Medication's Wasted: Heparin = 4000 units. Procedure completed. Patient transferred by wheelchair to CPRU. Vital chart was stopped. Site: Right Radial artery Sheath Size: 6 Fr Hemostasis Method: TR Band Hemostasis Success: Successful Procedure Medications Start: 8:52 AM Stop: 8:52 AM Medication: Versed Amount: 1 mg Route: I.V. Start: 8:52 AM Stop: 8:52 AM Medication: Fentanyl Amount: 50 mcg Route: I.V. Start: 9:05 AM Stop: 9:05 AM Medication: Versed Amount: 1 mg Route: I.V. Start: 9:05 AM Stop: 9:05 AM Medication: Fentanyl Amount: 50 mcg Route: I.V. Start: 9:10 AM Stop: 9:10 AM Medication: Heparin Amount: 5000 units Route: I.V. Start: 9:22 AM Stop: 9:22 AM Medication: Heparin Amount: 2000 units Route: I.V. Start: 9:30 AM Stop: 9:30 AM Medication: Plavix Amount: 300 mg Route: P.O. I, the attending physician, have reviewed and verified all procedure medications. Yes, all medications given per verbal order History/Risk Factors Hypertension: Yes Dyslipidemia: Yes Peripheral Arterial Disease (PAD): Yes Myocardial Infarction (FL): No Obesity: No Renal Disease: Yes Tobacco Use: Current/Recent(w/in 1 year) Prior Interventions PCI: No CABG: No Valve Surgery: No Report Signatures Finalized by:Abiola Thao MD on 10/06/2019 9:31:56 PM
[2019-10-05] MEDS: diphenhydrAMINE 50 mg Capsule PO (08:10)
[2019-10-05 08:35] LABS: Blood Urea Nitrogen 12 mg/dL (8-23); Calcium 8.9 mg/dL (8.5-10.5); Carbon Dioxide 25 mmol/L (22-29); Chloride 103 mmol/L (98-107); Glomerular Filtration Rate 61.1 mL/min (90-130); Glucose 94 mg/dL (65-115); Osmolality Calculated 280 mOsm/kg (285-295); Sodium 137 mmol/L (136-145)
--- NOTE | 2019-10-05 11:47 | PC.NURSE ---
TR band Air started to release from TR band at this time. No hematoma or bleeding noted, radial pulse palpable. No needs voiced. Will monitor.
--- NOTE | 2019-10-05 12:35 | PC.NURSE ---
TR band removed TR band removed at this time per protocol. No hematoma or bleeding noted at access site. Dressed with 2x2 and coban. Will monitor.
--- NOTE | 2019-10-05 16:22 | PC.NURSE ---
Report called Report called to Laureen PUGA at this time. All questions answered. Instructed nurse to keep BP under control and notify Dr Thao if gets much above 170/[address] Thao orders. Verbalized understanding. Waiting for room to be cleaned to transport patient to room.
[2019-10-05] MEDS: cloNIDine 0.1 mg Tablet PO (17:51)
[2019-10-05] MEDS: carvedilol 6.25 mg Tablet PO (17:52)
[2019-10-05] MEDS: sodium chloride 0.9% 1,000 ML 75 ML IV (17:53)
[2019-10-05] MEDS: sodium chloride 0.9% 1,000 ML 50 ML IV (17:53)
[2019-10-05] MEDS: atorvastatin 40 mg Tablet 20 MG PO (21:14)
[2019-10-06] VITALS (8 sets, daily range): BP systolic 132–184; BP diastolic 78–84; PULSE 63–70; RESP 16–19; TEMP 36.4–36.9; O2SAT 96–99
[2019-10-06] MEDS: cloNIDine 0.1 mg Tablet 0.2 MG PO (03:50)
[2019-10-06] MEDS: nitroglycerin 1 gm/inch oint Pkt 1 INCH TOPICAL (03:51)
[2019-10-06] MEDS: carvedilol 6.25 mg Tablet PO (07:04)
[2019-10-06 09:22] LABS: Anion Gap 14.2 (5-19); Blood Urea Nitrogen 10 mg/dL (8-23); Calcium 8.9 mg/dL (8.5-10.5); Carbon Dioxide 26 mmol/L (22-29); Chloride 102 mmol/L (98-107); Glomerular Filtration Rate 75.5 mL/min (90-130); Glucose 151 mg/dL (65-115); Osmolality Calculated 285 mOsm/kg (285-295); Potassium 4.2 mmol/L (3.5-5.1); Sodium 138 mmol/L (136-145)
--- NOTE | 2019-10-06 09:25 | P.SS_ITS ---
Short Stay Summary Providers Date of Admit/Discharge: 10/06/19 Attending Provider: Abiola Thao MD Primary Care Provider: Bryan Tripp MD HPI History of Present Illness Gab Longoria is a 64 year old male Past medical history significant for severe peripheral vascular disease, aortic aneurysm, uncontrolled malignant hypertension with worsening of renal function, history of chronically 100% occluded right Renal artery leading to nonfunctional right kidney and history of left severely stenotic 90% renal artery underwent renal artery percutaneous an gioplasty and stent placement using 4.0x12 [place] integrity drug-eluting stent Deployed at high NANDO of 14 with excellent angiographic result. Patient was kept overnight for IV hydration and optimization of medicine along with post procedure care. He was upset last night with the nursing staff as He think they did not know anything about him.He was upset about IV fluid which he was explained by myself that he will be given in the post operative period due to his not normal renal function. He had episodes of high blood pressure last night for which I was called. He was given clonidine and Nitropaste. It brought his blood pressure down into 160s to 170s range. His medications are optimized. I have detail conversation with him this morning. He appeared to be calm down. He would like to follow up with us. After seeing blood workup for renal function if it is normal he will be discharged home. He will be seeing Nga James in cardiology clinic over next few days. Patient has been explained to keep a log of blood pressure pulse and send it to us after 7-10 days. He will be scheduled in 3-4 weeks for left leg lifestyle limiting claudication and chronically occluded SFA along with severe shortness stenosis of left external iliac artery. I have discussed in patient in the past and now again in detail about the treatment. He fully understood it. He will be discharged today. Home Meds/Allergies Home Medications and Allergies Allergies Allergy/AdvReac Type Severity Reaction Status Date / Time No Known Allergies Allergy Verified 10/04/19 14:47 PFSH Acute PFSH: Social History Smoking and tobacco status: current every day smoker cigarettes Packs smoked per day: 0.75 Years cigarettes smoked: 40 Alcohol intake: never Vitals/I&O/Wt Last Vital Signs Temp 97.5 F L 10/06/19 07:14 Pulse 63 10/06/19 07:14 Resp 18 10/06/19 07:14 BP 160/84 10/06/19 07:14 Pulse Ox 99 10/06/19 07:14 10/05/19 10/06/19 10/06/19 22:59 06:59 14:59 Intake Total 360 / 1320 120 / 120 Output Total 250 / 250 Balance 110 / 1070 120 / 120 Weight last 48 hrs Weight 127 lb Physical Exam Narrative: EXAM NARRATIVE: GENERAL: Patient is alert, awake and oriented x3. NECK: No jugular vein distension. HEENT: No cyanosis. No icterus. No pallor. HEART: Regular S1 and S2. No murmur, rub or gallop. LUNGS: Clear to auscultate bilaterally. ABDOMEN: Soft, nontender and nondistended. Positive bowel sounds. No guarding, rebound or tenderness. CENTRAL NERVOUS SYSTEM: Grossly nonfocal. EXTREMITIES: Lower extremities without edema bilaterally. 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 request for service Routin e Exams 10/05/19 06:00 Taken Discharge Plan Discharge Patient Disposition: Home, Self-Care Condition: Stable Prescriptions: Continued atorvastatin 40 mg Tablet 20 mg PO BEDTIME Qty: 30 RF: 3 clonidine HCl 0.1 mg Tablet 0.1 mg PO TID Qty: 60 RF: 3 carvedilol 6.25 mg Tablet 12.5 mg PO BID Qty: 60 RF: 3 aspirin 81 mg Tablet,Delayed Release (Dr/Ec) 81 mg PO DAILY Qty: 30 RF: 3 amlodipine 10 mg Tablet 10 mg PO DAILY Qty: 30 RF: 3 clopidogrel 75 mg Tablet 75 mg PO DAILY Qty: 90 RF: 4 Referrals: Bryan Tripp MD [Primary Care Provider] - Discharge Diet: Cardiac and Low Salt Discharge Activity: Resume usual activity Patient Instructions: Peripheral Vascular Stent Placement (DC) Activity Restrictions/Additional Instructions: Follow-up with Nga James in 7 days after renal artery stent placement. You will be scheduled for left leg over next 2-3 weeks. Keep a log of blood pressure pulse twice a day for next 10 days and send it to Dr. Thao's office. Please schedule with Dr. Thao in 8-12 weeks. Follow-up with primary care physician as scheduled. Attestations Medical Necessity Statement*: Patient will be discharged today Time Spent in Patient Care*: greater than 30 min Quality Metrics Clinical Quality Measures: During this hospital stay, did patient experience: None Coding Level of Care Code New Pt Acute International Affairs Vice President for Chg Fwd Patient Type New History Expanded Problem Focused Exam Expanded Problem Focused Medical Decision Making Moderate Complexity
[2019-10-06] MEDS: cloNIDine 0.1 mg Tablet PO (09:58)
[2019-10-06] MEDS: amlodipine 10 mg Tablet PO (09:58)
[2019-10-06] MEDS: clopidogrel 75 mg Tablet PO (09:58)
[2019-10-06] MEDS: aspirin 81 mg EC Tablet PO (09:58)
--- NOTE | 2019-10-06 10:54 | PC.CHAP ---
Pastoral Care Encounter/Spiritual Assessment Type of Contact [] Declined manager order visit [] Patient/Family/Request visit [] Outpatient visit [] Follow-up visit [] Physician referral [] Code/Alert [x] Routine visit [] Staff referral [] Actively dying [] Patient sleeping [] Family support [] [] Out of room [] Palliative care [] [] Receiving care in room [] Pre-surgical visit [] Trauma [] Long length of stay [] ICU visit [] Other: Relational/Emotional Strength [x] Patient feels connected with others/family/visitors/staff [x] Distress [] Loneliness/isolation [] Abandonment Spirituality of Patient [x] Person of Felicitas [x] Attends Mandaeism of their Felicitas [x] Believes in Prayer [] Reads Bible or Caodaism materials [] There are Spiritual issues to be addressed Drug Abuse Counselor Interventions x [x] Prayer [x] Active listening [x] Non-anxious presence [] Spiritual/emotional support [] Crisis/trauma care [] Spiritual counseling [] Bereavement support [] Provided bereavement packet [] Provided Bible/devotional materials [] Provided toy/stuffed animal, coloring book to patient or family member [] Provided Communion [] Anointing/[place] [] Salvation [x] Completed spiritual assessment [] Other: Impact on Illness or Injury [] Angry [] Fearful [] Anxious [] Often cries [] Exhaustion [] Unable to work [] Unable to attend religious [] Unable to walk/stand [] Unable to read [] Unable to drive [] Unable to eat/drink [] Unable to sleep [] Unable to be with family [] Patient intubated [] Other: Summary parient ready to go home Time spent with patient 10 min
== END 2019-10-06 13:30 | disposition home or self-care (01) ==
LOC: CCL 07:38 → MEDSURG 10-06 09:25 → OPMS 10-13 07:33
PROVIDERS: Family Provider Family Medicine; PCP Family Medicine; Visit Provider Internal Medicine Cardiovascular Disease
DX: I73.9 Peripheral vascular disease, unspecified (principal); Z95.5 Presence of coronary angioplasty implant and graft; F17.210 Nicotine dependence, cigarettes, uncomplicated; I12.9 Hypertensive chronic kidney disease with stage 1 through stage 4 chronic kidney disease, or unspecified chronic kidney disease; N18.9 Chronic kidney disease, unspecified
CPT/HCPCS: 12345; 36251; 36415; 80048; C1769; C1874; C1887; C1894; J1644; J2001; J2250; J3010; J3490; J7030; Q0163; Q9967

== ENCOUNTER → 2019-10-12 11:43 | Outpatient (BNVA) | payer OTHER, SELFPAY | PROVIDERS: Family Provider Family Medicine; PCP Family Medicine; Visit Provider Nurse Practitioner Family | DX: I73.9 Peripheral vascular disease, unspecified (principal) | CPT/HCPCS: 80048 ==

== ENCOUNTER 2019-12-10 21:58 | Emergency (ER) | payer OTHER, SELFPAY ==
[2019-12-10 22:07] VITALS: BP 152/75; PULSE 75; RESP 14; TEMP 36.9; O2SAT 99; BMI 18.4
--- NOTE | 2019-12-10 22:29 | ED_ITS ---
HPI - General Adult General: Chief complaint: Airway/Esophagus Foreign Body Stated complaint: DIFFICULTY SWALLOWING Time Seen by Provider: 12/10/19 22:23 Source: patient Mode of arrival: ambulatory Limitations: no limitations History of Present Illness: HPI narrative: Patient is a 64-year-old male who presents to ED today stating he is having difficulty swallowing. He states s ymptoms began earlier today. He cannot think of anything he ate that he felt like got stuck or that he choked on. Patient states he is still able to eat and drink as well as control his secretions. He does not complain of a sore throat or painful swallowing. He has not noticed any neck swelling. Patient is concerned because he lives far away and states the difficulty swallowing is giving him anxiety. Onset (ago): hour(s) Associated symptoms: Deny chest pain or dyspnea Review of Systems Const: Denies: fever(s) or chills Eyes: Denies: change in vision, blurry vision, photophobia, floaters or seeing flashes ENMT: Denies: throat pain, uvular edema, enlarged tonsils, odynophagia, hoarseness, swelling of lips/tongue, oral sores, dental pain, nasal discharge or nasal congestion Card: Denies: chest pain Resp: Denies: dyspnea Musc: Denies: neck pain PFSH ED PFSH: Medical History (Updated 12/10/19 @ 23:46 by NAMITA Davalos) Chronic neck pain Claudication of lower extremity Erectile dysfunction Essential (primary) hypertension HTN (hypertension) Pulmonary nodule PVD (peripheral vascular disease) Surgical History (Updated 10/12/19 @ 12:02 by BETTE Miller) H/O knee surgery Hx of arthroscopic knee surgery Family History Father Cancer Social History Smoking and tobacco status: current every day smoker cigarettes Packs smoked per day: 0.75 Years cigarettes smoked: 40 Alcohol intake: never Physical Exam Const: COMMON NORMALS: no acute distress, average body habitus, patient oriented x3, no limitations, healthy appearing, alert and well nourished HENMT: COMMON NORMALS: normocephalic, atraumatic, moist oral mucous membranes, oropharynx normal, dentition normal and gingiva normal HEAD & SCALP: normocephalic and atraumatic MOUTH: Normal oral and palatal mucosa present, lip normal, tongue normal and Normal salivary glands and ducts present; no audible dysphonia and no drooling THROAT: posterior oropharynx normal, tonsils normal and uvula midline; no uvular edema Neck/C-Spine: COMMON NORMALS: full ROM and no lymphadenopathy GENERAL: No anterior neck swelling Resp: COMMON NORMALS: normal respiratory effort and clear to auscultation bilaterally AUSCULTATION: clear to auscultation bilaterally Cardio: COMMON NORMALS: regular rate and regular rhythm RATE: regular rate RHYTHM: regular rhythm Neuro: COMMON NORMALS: patient oriented x3 SENSORIUM/ORIENTATION: Yes alert Course Vital Signs: Vital signs: Vital Signs Temperature 98.4 F 12/10/19 22:07 Pulse Rate 72 12/10/19 23:00 Respiratory Rate 18 12/10/19 23:00 Blood Pressure 129/58 12/10/19 23:00 Pulse Oximetry 98 12/10/19 23:00 MDM - General Adult MDM Narrative: Medical decision making narrative: Patient is still able to eat and drink and control secretions. He has no airway compromise. Recommend patient follow-up with general surgery or Dr. Frank for evaluation for possible EGD and/or barium swallow if symptoms persist. Information was placed with case management for this referral. Lab Data: Labs: Lab Results 12/10/19 12/10/19 Range/Units 22:38 22:38 WBC 13.8 H (4.0-10.0) 10^3/ uL RBC 3.86 L (4.1-5.3) 10^6/u L Hgb 11.3 L (11.7-16.6) g/dL Hct 35.0 L (42.0-52.0) % MCV 90.7 (80-94) fL MCH 29.3 (28.0-34.0) pg MCHC 32.3 (30.0-36.0) g/dL RDW 14.8 (12.1-15.1) % Plt Count 394 (130-400) 10^3/c mm MPV 8.8 (7.4-10.4) fL Neut % (Auto) 72.8 % Lymph % (Auto) 17.2 % [place] % (Auto) 7.7 % Eos % (Auto) 1.2 % Baso % (Auto) 0.7 % Neut # (Auto) 10.0 H (1.8-7.7) 10^3/u L Lymph # (Auto) 2.4 (0.8-4.8) 10^3/u L [place] # (Auto) 1.1 H (0.2-0.9) 10^3/u L Eos # (Auto) 0.2 (0.0-0.8) 10^3/u L Baso # (Auto) 0.1 (0.0-0.1) 10^3/u L Nucleated RBC % (a uto) 0 % Nucleated RBCs # 0.0 /100WBC Sodium 140 (136-145) mmol/L Potassium 3.4 L (3.5-5.1) mmol/L Chloride 103 (98-107) mmol/L Carbon Dioxide 24 (22-29) mmol/L Anion Gap 16.4 (5-19) BUN 11 (8-23) mg/dL Creatinine 0.9 (0.7-1.2) mg/dL GFR Calculation 85.2 L (90-130) mL/min Glucose 115 (65-115) mg/dL Calculated Osmolal ity 287 (285-295) mOsm/k g Calcium 9.4 (8.5-10.5) mg/dL Imaging Data^: CT neck: Radiologist's impression: [address] [address] [address] Scan Report Signed Patient: Gab Longoria Unit #: [id number] : 1955 Age/Sex: 64 / M ADM Date: 12/10/19 Loc: ER Room/Bed: Attending Dr: Ordering Provider/Ordering MD: Massiel Rubio Date of Service: 12/10/19 Procedure(s): CT neck w con* [id number] Accession Number(s): [id number] Report Number: [id number] PROCEDURE INFORMATION: Exam: CT Neck With Contrast Exam date and time: 12/10/2019 10:45 PM Age: 64 years old Clinical indication: Dysphagia / difficulty swallowing TECHNIQUE: Imaging protocol: Computed tomography images of the neck with intravenous contrast. Radiation optimization: All CT scans at this facility use at least one of these dose optimization techniques: automated exposure control; mA and/or kV adjustment per patient size (includes targeted exams where dose is matched to clinical indication); or iterative reconstruction. Contrast material: OMNI 300; Contrast volume: 95 ml; Contrast route: IV; COMPARISON: No relevant prior studies available. RADIATION DOSE METRICS: Total DLP: 641.04 mGy-cm FINDINGS: Nasopharynx: Unremarkable. Oropharynx: Unremarkable. No significant tonsillar enlargement. Hypopharynx: Unremarkable. Larynx: Unremarkable. Normal epiglottis. Retropharyngeal space: Unremarkable. Submandibular/Parotid glands: Normal. Glands are normal in size. Thyroid: Normal. No enlarged or calcified nodules. Lymph nodes: Unremarkable. No lymphadenopathy. Trachea: Visualized trachea is unremarkable. Lungs: Emphysematous changes are seen at the lung apices. Vasculature: Calcified plaque causes moderate stenosis of the left proximal ICA. CT/CT neck w con* [id number] IMPRESSION: No mass, peritonsillar abscess or airway compromise identified. Radiation Dose CTDIVOL = (mGy): DLP = 641.04 (mGy-cm) Dictated By: Kiki Latif MD Signed By: Kiki Latif MD Signed Date/Time: 12/10/192333 DD/ 32 Discharge Plan Discharge Patient Disposition: Home, Self-Care Clinical Impression: Difficulty swallowing Qualifiers: Dysphagia type: unspecified Qualified Code(s): R13.10 - Dysphagia, unspecified Condition: Stable Prescriptions: No Action clopidogrel 75 mg Tablet 75 mg PO DAILY Qty: 90 RF: 4 carvedilol 6.25 mg Tablet 6.25 mg PO BID Qty: 60 RF: 3 atorvastatin 40 mg Tablet 20 mg PO BEDTIME Qty: 30 RF: 3 clonidine HCl 0.1 mg Tablet 0.1 mg PO TID Qty: 60 RF: 3 aspirin 81 mg Tablet,Delayed Release (Dr/Ec) 81 mg PO DAILY Qty: 30 RF: 3 amlodipine 10 mg Tablet 10 mg PO DAILY Qty: 30 RF: 3 Discharge Orders: Discharge Order (Routine); Ordered 12/10/19 Ordered By: Massiel Rubio Referrals: Bryan Tripp MD [Primary Care Provider] - Discharge Diet: Advance as tolerated Discharge Activity: Increase activity as tolerated Patient Instructions: Dysphagia Activity Restrictions/Additional Instructions: As discussed case management will contact you to set you up with an appointment for a general surgeon or Dr. Frank for further evaluation if symptoms persist. Return to the emergency department if you are no longer able to control your own saliva, eat, drink, difficulty breathing, or any other concerns you may have. Coding Level of Care Code ED [employer] Special Education Teacher for Chg Fwd Exam Detailed
[2019-12-10 22:46] LABS: Basophils # 0.1 10^3/uL (0.0-0.1); Basophils % 0.7 %; Eosinophils # 0.2 10^3/uL (0.0-0.8); Eosinophils % 1.2 %; Hemoglobin 11.3 g/dL (11.7-16.6); Lymphocytes # 2.4 10^3/uL (0.8-4.8); Lymphocytes % 17.2 %; Mean Corpuscular HGB Conc 32.3 g/dL (30.0-36.0); Mean Corpuscular Hemoglobin 29.3 pg (28.0-34.0); Mean Corpuscular Volume 90.7 fL (80-94); Mean Platelet Volume 8.8 fL (7.4-10.4); Monocytes # 1.1 10^3/uL (0.2-0.9); Monocytes % 7.7 %; Neutrophils % 72.8 %; Nucleated Red Blood Cells % 0 %; Platelet Count 394 10^3/cmm (130-400); Red Blood Count 3.86 10^6/uL (4.1-5.3); Red Cell Distribution Width 14.8 % (12.1-15.1); White Blood Count 13.8 10^3/uL (4.0-10.0)
[2019-12-10 23:00] VITALS: BP 129/58; PULSE 72; RESP 18; O2SAT 98
[2019-12-10 23:03] LABS: Anion Gap 16.4 (5-19); Blood Urea Nitrogen 11 mg/dL (8-23); Calcium 9.4 mg/dL (8.5-10.5); Carbon Dioxide 24 mmol/L (22-29); Chloride 103 mmol/L (98-107); Glomerular Filtration Rate 85.2 mL/min (90-130); Glucose 115 mg/dL (65-115); Osmolality Calculated 287 mOsm/kg (285-295); Potassium 3.4 mmol/L (3.5-5.1); Sodium 140 mmol/L (136-145)
[2019-12-10] MEDS: iohexol 300 mg/mL 100 mL Btl IV (23:05)
[2019-12-10 23:57] VITALS: BP 135/60; PULSE 88; RESP 16; O2SAT 98
--- NOTE | 2019-12-12 10:57 | DCPLANNER ---
assignment manager had message to schedule a follow up appointment for patient with general surgery or Dr. Frank for EGD. assignment manager called patient to speak with patient to ask patient if mattered to patient who the follow up appointment was with. Patient stated that he is feeling better and he does not want to have follow up appointment scheduled at this time.
== END 2019-12-11 00:01 | disposition home or self-care (01) ==
PROVIDERS: Emergency Provider Physician Assistant; Family Provider Family Medicine; PCP Family Medicine
DX: R13.10 Dysphagia, unspecified (principal); Z79.02 Long term (current) use of antithrombotics/antiplatelets; Z79.82 Long term (current) use of aspirin; I10 Essential (primary) hypertension; F17.210 Nicotine dependence, cigarettes, uncomplicated
CPT/HCPCS: 12345; 70491; 80048; 85025; 99282; 99283; Q9967

== ENCOUNTER → 2020-01-11 08:52 | Outpatient (BNVA) | payer OTHER, SELFPAY | PROVIDERS: Family Provider Family Medicine; PCP Family Medicine; Visit Provider Internal Medicine Cardiovascular Disease | DX: I73.9 Peripheral vascular disease, unspecified (principal) | CPT/HCPCS: 80048; 85025 ==

== ENCOUNTER 2020-01-16 11:14 | Observation (INO) | payer OTHER, SELFPAY ==
[2020-01-15 09:52] VITALS: BMI 18.6
[2020-01-16] VITALS (46 sets, daily range): BP systolic 138–213; BP diastolic 71–121; PULSE 66–84; RESP 0–22; TEMP 36.6–36.9; O2SAT 96–100
[2020-01-16 06:52] LABS: Quest SARS-CoV-2 RNA NOT DETECTED (NOT DETECTED)
--- NOTE | 2020-01-16 07:30 | XACV_ITS ---
Wt: 57 kg BSA: 1.66 m2 Any Known Allergies: No known allergies Gender: Male : 1955 Exam Type: Invasive Peripheral Vascular Procedure(s): Procedure Description: Peripheral Cath Diagnostic Procedure Procedure Description: Abdominal aortic angiography Procedure Description: Lower extremities' angiography Procedure Description: Peripheral vascular Intervention Procedure Description: PV Balloon Procedure Description: PV Atherectomy Exam Priority: Routine Lower Extremity Interventional Findings Popliteal approach was adopted, we were able to cross the lesion all the way with the help of Glidewire and seeker into the abdominal aorta. Abdominal aortogram was performed however due to complete occlusion were not able to highlight the vessels. #3 Viper wire was switched for Glidewire through seeker, 2.0 bur was used at low medium high-speed for CSI atherectomy of left common iliac, external iliac, left common femoral, left SFA and popliteal artery followed by multiple balloon angioplasties. Please see the inventory for above device list and balloon caliber and NANDO. Excellent angiographic result with good flow was noted from left common iliac to popliteal vessel. Conclusions Peripheral Procedure Description: Lifestyle limiting claudication of the left leg and foot , Tima grade V :Britany stage IV. Procedure #1 Known left common, external iliac, common femoral, superficial femoral and popliteal artery occlusion with reasonable two-vessel runoff as per prior angiogram. #2 Popliteal approach was adopted, we were able to cross the lesion all the way with the help of Glidewire and seeker into the abdominal aorta. Abdominal aortogram was performed however due to complete occlusion were not able to highlight the vessels. Recommendations 1-Return to inpatient for close monitoring and routine cath care 2-Risk factor modification for secondary prevention 3-Statin and aspirin 81 mg life--long, if tolerated 4-Continue Plavix 75mg p.o. daily for at least one year. We will assess at the end of one year again to continue if further or not 5-Continue optimal medical management 6-Follow up with Dr. Thao in four weeks and your primary care in 10 days. Hemodynamic Data Phase:Rest AO : 66.0 mmHg / 44.0 mmHg ( 55.0 mmHg ) @ 4:54:00 AM 159.0 mmHg / 65.0 mmHg ( 99.0 mmHg ) @ 5:19:00 AM 130.0 mmHg / 63.0 mmHg ( 90.0 mmHg ) @ 5:43:00 AM 156.0 mmHg / 70.0 mmHg ( 104.0 mmHg ) @ 5:55:00 AM 159.0 mmHg / 77.0 mmHg ( 110.0 mmHg ) @ 5:58:00 AM 164.0 mmHg / 77.0 mmHg ( 113.0 mmHg ) @ 5:58:00 AM Access Site Site: Left Popliteal Sheath Size: 6 Fr Hemost... Method: Suture Hemost... Success: Successful Procedure Details Findings Procedure Consent Obtained. Pre-Procedure Time Out. Identified patient by full name and date of as verbalized by the patient/guarantor. Does the consent match the physician's order: Yes. Accurate & Complete Informed Consent: Yes. Inpatient/Outpatient History & Physical on Chart: Yes. If H&P is completed, is and addenduem needed: No; If yes, is the addendum complete: N/A. Visualize and Verify Site with Patient/Guarantor: N/A. Relevant Radiology Images available: N/A. Pre-op teaching completed and patient verbalized understanding. The risks, benefits, and alternatives of sedation and/or procedure were discussed by physician. The patient agrees to continue. Procedure started. Correct patient, site and procedure confirmed by cath team. PERRLA. 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 Lungs clear x 5 lobes. Pre op diagnosis: PVD. IV Site on Arrival: 18 gauge in the left anticubital. IV Fluids: 0.9% NaCl at KVO. 0 mL infused prior to laboratory geneticist. Pre Procedural Pulses: right dorsalis pedis was 2+. Pre Procedural Pulses: left dorsalis pedis was Doppled. Pre Procedural Pulses: right posterior tibial was 2+. Pre Procedural Pulses: left posterior tibial was Doppled. Pre Procedural Pulses: bilateral radial was 3+. Oxygen started at 2liters/min via nasal canula. popliteal was prepped with chloroprep then draped in the usual sterile fashion. Baseline sample Acquired. HR: 66 BPM. Equipment: Peripheral. Physician notified. Physician arrived. Physician scrubbed in. Patient's family unavailable. Immediate Pre-Procedure Time Out. Correct Patient: Yes; Correct Procedure: Yes; Correct Site: Yes; Correct Patient Position: Yes; Correct Supplies: Yes; Dried Flammable Prep: Yes; Blood Products Available: N/A;. Lidocaine 1% infiltrated to the left popliteal. Arterial access obtained with micropuncture set. Glidewire inserted. SEEKER catheter inserted over glidewire. Glidewire out. Viper wire inserted. Side port of sheath attached to Normal Saline flush at KVO to maintain patency. SEEKER catheter out. 2.00 Diamondback orbital atherectomy device inserted over VIPER wire. Orbital atherectomy performed in Left SFA. Orbital atherectomy performed. Diamondback atherectomy device removed over Viper wire. SEEKER catheter inserted. Viper wire out. A 5 setswana Angled Pig catheter in over wire. Abdominal aortogram performed in AP @ 10 mL/sec for a total of 30 mL. Catheter removed over the glide wire. Hand injection. Glidewire in. SEEKER out. Inflation number : 1 A AB ARMADA 35 OTW [id number] was prepped and advanced across the External Iliac, Left , then inflated to 6 NANDO for 1:03 seconds. Inflation number: 1 The AB ARMADA 35 OTW [id number] was reinflated across the Superficial Femoral, Left, to 6 NANDO for 1:01 seconds. Inflation number: 2 The AB ARMADA 35 OTW [id number] was reinflated across the Superficial Femoral, Left, to 8 NANDO for 1:00 seconds. Inflation number: 3 The AB ARMADA 35 OTW [id number] was reinflated across the Superficial Femoral, Left, to 8 NANDO for 1:01 seconds. Inflation number: 4 The AB ARMADA 35 OTW [id number] was reinflated across the Superficial Femoral, Left, to 8 NANDO for 1:03 seconds. Inflation number: 5 The AB ARMADA 35 OTW [id number] was reinflated across the Superficial Femoral, Left, to 8 NANDO for 1:00 seconds. Inflation number: 6 The AB ARMADA 35 OTW [id number] was reinflated across the Superficial Femoral, Left, to 8 NANDO for 1:01 seconds. Balloon out over wire. Results checked. Inflation number : 7 A BARD 6FR Lutinox [id number] drug coated balloon was prepped and advanced across the Superficial Femoral, Left , then inflated to 6 NANDO for 1:02 seconds. Inflation number: 8 The BARD 6FR Lutinox [id number] drug coated balloon was reinflated across the Superficial Femoral, Left, to 6 NANDO for 1:01 seconds. Balloon pulled back on wire. Balloon out. Wire out. A Suture was successful obtaining hemostatsis at the Left Popliteal insertion site. Physician scrubbed out. Sheath(s) sutured into position with 2-0 silk and sterile 4x4's and Op-site applied over the site. No oozing or signs and symptoms of hematoma noted. Arterial sheath flushed and connected to tranducer and pressure bag with heparinized saline. Post Procedure: Pulses reassessed and unchanged. PERRLA. 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 No VTE prophylaxis required. Post-op diagnosis: severe PVD. Complications: none. Medication's Wasted: Nitro = 47.8 mg. Medication's Wasted: Heparin = 2000 units. Medication's Wasted: Other = versed 1 mg. Total IV fluids: 150 mL. Estimated blood loss: 5mL-10mL. Procedure completed. Patient transferred by bed to 1st floor. Procedure Medications Start: 9:32 AM Stop: 9:32 AM Medication: Fentanyl Amount: 50 mcg Route: I.V. Start: 9:36 AM Stop: 9:36 AM Medication: Versed Amount: 1 mg Route: I.V. Start: 9:47 AM Stop: 9:47 AM Medication: Versed Amount: 1 mg Route: I.V. Start: 10:00 AM Stop: 10:00 AM Medication: Heparin Amount: 5000 units Route: I.V. Start: 10:00 AM Stop: 10:00 AM Medication: Fentanyl Amount: 50 mcg Route: I.V. Start: 10:07 AM Stop: 10:07 AM Medication: Versed Amount: 1 mg Route: I.V. Start: 10:12 AM Stop: 10:12 AM Medication: Fentanyl Amount: 50 mcg Route: I.V. Start: 10:12 AM Stop: 10:12 AM Medication: Versed Amount: 1 mg Route: I.V. Start: 10:33 AM Stop: 10:33 AM Medication: Versed Amount: 1 mg Route: I.V. Start: 10:33 AM Stop: 10:33 AM Medication: Fentanyl Amount: 50 mcg Route: I.V. Start: 10:36 AM Stop: 10:36 AM Medication: Heparin Amount: 1000 units Route: I.V. Start: 10:38 AM Stop: 10:38 AM Medication: Versed Amount: 1 mg Route: I.V. Start: 10:43 AM Stop: 10:43 AM Medication: Nitrogylcerin Amount: 400 mcg Route: I.A. Start: 10:53 AM Stop: 10:53 AM Medication: Heparin Amount: 1000 units Route: I.V. Start: 10:54 AM Stop: 10:54 AM Medication: Nitrogylcerin Amount: 400 mcg Route: I.A. Start: 10:56 AM Stop: 10:56 AM Medication: Versed Amount: 1 mg Route: I.V. Start: 10:57 AM Stop: 10:57 AM Medication: Nitrogylcerin Amount: 400 mcg Route: I.A. I, the attending physician, have reviewed and verified all procedure medications. Yes, all medications given per verbal order History/Risk Factors Hypertension: Yes Dyslipidemia: No Peripheral Arterial Disease (PAD): Yes Myocardial Infarction (MO): No Obesity: No Renal Disease: Yes Tobacco Use: Current/Recent(w/in 1 year) Prior Interventions PCI: No CABG: No Valve Surgery: No Report Signatures Finalized by:Abiola Thao MD on 01/28/2020 4:10:22 PM
[2020-01-16] MEDS: diphenhydrAMINE 50 mg Capsule PO (07:39)
--- NOTE | 2020-01-16 08:53 | PM.HP ---
Providers/Chief Complaint Admitting Physician: Abiola Thao MD Primary Care Provider: Bryan Tripp MD Chief Complaint: Critical limb ischemia of left leg History of Present Illness 64-year-old male past medical history significant for tobacco abuse, hypertension, severe peripheral vascular disease with lifestyle limiting claudication in both legs, ABIs 0.46 on the left and 0.62 on the right, history of renal artery stenosis bilateral, history of chronic right renal artery occlusion and 90% stenotic left renal artery which was treated with drug-eluting stent in the month of September, history of balloon angioplasty followed by stent placement of right external iliac artery, during the same angiogram it was learned that patient has severely stenotic almost subtotally occluded left external iliac and chronically occluded ostial to distal left SFA with reasonable popliteal vessel, tibioperoneal trunk appear to be diseased no good visualization of anterior posterior tibial vessels were noted perhaps filled with collaterals. Since patient continues to have lifestyle limiting claudication and has failed conservative management he is brought in today for left popliteal approach in order to attempt and fix left SFA/iliac arteries. Patient has been explained all risk benefit and alternative for the procedure. Patient has been explained regarding risk and warning involved in using drug-coated balloon. He is well aware of FDA warning regarding increased mortality and subgroup which uses drug-coated balloon. He has given me permission if indicated I can use it. He is happy with prior outcome and can walk on the right leg without limitation but left leg bothers him too much therefore he cannot walk more than couple of 100 yards. Review of Systems Eyes: Denies: photophobia ENMT: Denies: enlarged tonsils Skin/Breast: Reports: surgical incision Medications/Allergies Home Medications Medication Instructions Recorded Confirmed Last Taken Type amlodipine 10 mg PO DAILY #30 tab 10/01/19 01/15/20 01/15/20 14:00 Rx aspirin 81 mg PO DAILY #30 tab 10/01/19 01/15/20 01/15/20 14:00 Rx atorvastatin 20 mg PO BEDTIME #30 tab 10/01/19 01/15/20 01/15/20 20:00 Rx carvedilol 6.25 mg PO BID #60 tab 10/06/19 01/15/20 01/16/20 05:30 Rx clopidogrel 75 mg PO DAILY #90 tab 10/06/19 01/15/20 01/15/20 14:00 Rx clonidine HCl 0.1 mg tablet 0.1 mg PO TID #60 tab 12/19/19 01/15/20 01/16/20 05:30 Rx Allergies Allergy/AdvReac Type Severity Reaction Status Date / Time No Known Allergies Allergy Verified 01/15/20 08:13 PFSH Acute PFSH: Medical History Chronic neck pain Claudication of lower extremity Erectile dysfunction Essential (primary) hypertension HTN (hypertension) Pulmonary nodule PVD (peripheral vascular disease) Surgical History H/O knee surgery Hx of arthroscopic knee surgery Family History Father Cancer Social History Smoking and tobacco status: current every day smoker cigarettes Packs smoked per day: 0.75 Years cigarettes smoked: 40 Alcohol intake: never Vitals/I&O/Wt Last Vital Signs Temp 98.1 F 01/16/20 08:10 Pulse 70 01/16/20 08:10 Resp 16 01/16/20 08:10 BP 162/74 01/16/20 08:10 Pulse Ox 100 01/16/20 08:10 Weight last 48 hrs Weight 126 lb Physical Exam Narrative: EXAM NARRATIVE: GENERAL: Patient is alert, awake and oriented x3. NECK: No jugular vein distension. HEENT: No cyanosis. No icterus. No pallor. HEART: Regular S1 and S2. No murmur, rub or gallop. LUNGS: Clear to auscultate bilaterally. ABDOMEN: Soft, nontender and nondistended. Positive bowel sounds. No guarding, rebound or tenderness. CENTRAL NERVOUS SYSTEM: Grossly nonfocal. EXTREMITIES: Lower extremities without edema bilaterally. Pulses not palpable in the left lower extremities Data : 01/17/20 03:15 01/17/20 03:15 A&P Assessment and plan (1) PVD (peripheral vascular disease): Patient is here for peripheral angiogram for lifestyle limiting claudication of left SFA and iliac artery through left popliteal approach. Patient has been explained all risk benefit and alternative for the procedure. He would like to proceed with it. Status: Acute (2) CKD (chronic kidney disease): Currently stable and has normalized after stent placement Status: Acute Qualifiers: Chronic kidney disease stage: stage 2 (mild) Qualified Code(s): N18.2 - Chronic kidney disease, stage 2 (mild) (3) HTN (hypertension): Blood pressure is also getting under control after the left renal artery intervention, will continue to optimize medicine Status: Acute Qualifiers: Hypertension type: essential hypertension Qualified Code(s): I10 - Essential (primary) hypertension Attestations Medical Necessity Statement*: I am not expecting his stay to cross more than 1 midnight. Coding Level of Care Code Established Pt Acute Transportation Logistics Internship for Chg Fwd Patient Type Established Medical Decision Making Moderate Complexity Diagnoses PVD (peripheral vascular disease) I73.9 CKD (chronic kidney disease) N18.2 Chronic kidney disease stage: stage 2 (mild) HTN (hypertension) I10 Hypertension type: essential hypertension
--- NOTE | 2020-01-16 09:24 | W.PM.OPSUD ---
Surgery/Procedure H&P Update DATE OF PROCEDURE: January 16, 2020 DATE H&P PERFORMED: 01/16/20 H&P UPDATE INFORMATION: I have examined patient prior to procedure, No changes to prior documentation and H&P to be scanned into chart CHANGES TO PREVIOUS DOCUMENTATION: None PREOP DIAGNOSIS: Lifestyle limiting claudication of left leg PLANNED PROCEDURE: Operation Date: 01/16/20 08:30 Proposed Procedures p Peripheral Diagnostic(Not Applicable) - Abiola Thao MD PATIENT REASSESSED PRIOR TO SEDATION, WITH NO CHANGE NOTED: Yes PHYSICAL EXAM: alert, oriented x 3, clear to auscultation bilaterally and regular rate & rhythm AIRWAY EVAL/ANESTHESIA PLAN: ASA II, Risks, benefits & alternatives of sedation and/or procedure discussed and Patient agrees to continue as planned
[2020-01-16] MEDS: HYDROcodone-acetaminophen 5-325 mg Tablet 1 TAB PO ×3 (11:30→20:02)
--- NOTE | 2020-01-16 11:33 | PC.NURSE ---
patient restless in bed while sheath is in patient reports extreme pain in left leg PRN medication given
--- NOTE | 2020-01-16 11:45 | PC.NURSE ---
Addendum entered by Gretchen Mora RN 01/16/20 12:44: Dr stallworth notified and instructions to give 4 mg morphine x1 Original Note: patient conintues to have pain
[2020-01-16] MEDS: morphine 4 mg/mL SDV 1 mL IVP (11:48)
[2020-01-16] MEDS: fentaNYL 50 mcg/mL INJ 2mL IVP (12:32)
--- NOTE | 2020-01-16 12:45 | PC.NURSE ---
Patient continues to be restless in bed with Sheath in place and some noted discoloration to the L extremity noted. Dr stallworth notified and comes to bed side a stat PTT was verbally ordered the Dr wallace decided just to pull the sheath with out PTT; PTT canceled. Dr Stallworth removed sheath 50 mcg of fentenyl given during sheath pull patient begins to relax and fall asleep V/s stabilizing and patient reports pain is decreasing Dr stallworth held pressure to site for approx. 13 min then this nurse took over pressure and held for an additional 10 min; patient tolerated well. Strong pulse Dopplered post sheath pull patient is resting with no outward S/s of pain.
--- NOTE | 2020-01-16 13:02 | PC.NURSE ---
medications not given due to pain, procedure.
[2020-01-16] MEDS: cloNIDine 0.1 mg Tablet PO ×2 (14:54→20:03)
[2020-01-16 15:24] LABS: Partial Thromboplastin Time 42.5 SECONDS (23.9-36.7)
[2020-01-16] MEDS: carvedilol 6.25 mg Tablet PO (18:08)
[2020-01-16] MEDS: clopidogrel 75 mg Tablet PO (18:08)
[2020-01-16] MEDS: atorvastatin 40 mg Tablet 20 MG PO (20:02)
[2020-01-16] MEDS: temazepam 15 mg Capsule PO (20:20)
--- NOTE | 2020-01-16 20:30 | PC.NURSE ---
Received report from EDD Godinez. Pt reported pain 5/10 in upper left leg. [place] given. Pt now appears to be resting comfortably. Will continue to monitor.
[2020-01-17] VITALS: BP 160/77; PULSE 66; RESP 16; O2SAT 93
[2020-01-17] MEDS: sodium chloride 0.9% 1,000 ML 100 ML IV (01:16)
[2020-01-17] MEDS: HYDROcodone-acetaminophen 5-325 mg Tablet 1 TAB PO ×2 (01:17→05:18)
[2020-01-17 03:48] VITALS: BP 174/75; PULSE 75; RESP 16; TEMP 36.7; O2SAT 93
[2020-01-17 03:55] LABS: Basophils # 0.1 10^3/uL (0.0-0.1); Basophils % 0.6 %; Eosinophils # 0.2 10^3/uL (0.0-0.8); Eosinophils % 1.3 %; Hematocrit 34.5 % (42.0-52.0); Hemoglobin 10.9 g/dL (11.7-16.6); Lymphocytes # 2.4 10^3/uL (0.8-4.8); Mean Corpuscular HGB Conc 31.6 g/dL (30.0-36.0); Mean Corpuscular Hemoglobin 29.3 pg (28.0-34.0); Mean Corpuscular Volume 92.7 fL (80-94); Mean Platelet Volume 8.7 fL (7.4-10.4); Monocytes # 0.9 10^3/uL (0.2-0.9); Monocytes % 7.2 %; Neutrophils % 71.5 %; Nucleated Red Blood Cells % 0 %; Platelet Count 351 10^3/cmm (130-400); Red Blood Count 3.72 10^6/uL (4.1-5.3); Red Cell Distribution Width 14.4 % (12.1-15.1); White Blood Count 12.6 10^3/uL (4.0-10.0)
[2020-01-17 04:14] LABS: Blood Urea Nitrogen 8 mg/dL (8-23); Calcium 8.5 mg/dL (8.5-10.5); Carbon Dioxide 25 mmol/L (22-29); Chloride 102 mmol/L (98-107); Glomerular Filtration Rate 75.5 mL/min (90-130); Glucose 102 mg/dL (65-115); Osmolality Calculated 282 mOsm/kg (285-295); Sodium 138 mmol/L (136-145)
[2020-01-17 04:54] VITALS: BP 160/77
[2020-01-17 08:12] VITALS: BP 184/81
[2020-01-17] MEDS: amlodipine 10 mg Tablet PO (08:12)
[2020-01-17] MEDS: cloNIDine 0.1 mg Tablet PO (08:12)
[2020-01-17] MEDS: carvedilol 6.25 mg Tablet PO (08:13)
[2020-01-17] MEDS: aspirin 81 mg EC Tablet PO (08:13)
[2020-01-17] MEDS: clopidogrel 75 mg Tablet PO (08:14)
--- NOTE | 2020-01-17 08:56 | P.DS_ITS ---
Discharge Providers Date of Admission: 01/16/20 11:14 Date of Discharge: January 17, 2020 Attending Provider at Admission: Abiola Thao MD Attending Provider at Discharge: Abiola Thao MD Primary Care Provider: Bryan Tripp MD Diagnoses at Discharge Discharge Diagnosis (1) PVD (peripheral vascular disease): Status: Acute (2) CKD (chronic kidney disease): Status: Acute Qualifiers: Chronic kidney disease stage: stage 2 (mild) Qualified Code(s): N18.2 - Chronic kidney disease, stage 2 (mild) (3) HTN (hypertension): Status: Acute Qualifiers: Hypertension type: essential hypertension Qualified Code(s): I10 - Essential (primary) hypertension Reason for Visit Reason for Visit: Critical limb ischemia of left leg Hospital Course Discharge Summary: Patient was admitted after CSI atherectomy and balloon angioplasty of left external iliac and SFA. Good angiographic result with excellent flow was obtained. Both pulse anterior and posterior tibial pulse were dopplerable after the angioplasty. Patient has history of extensive peripheral vascular disease with history of CKD, uncontrolled hypertension, renal artery stenosis status post stent to left renal artery, history of balloon angioplasty and stent placement of right external iliac artery. For worsening of lifestyle limiting claudication and early critical limb ischemia patient underwent peripheral angiogram, CSI atherectomy using 2.0 bur of the left external iliac artery and left superficial femoral artery through left popliteal approach. Excellent angiographic result with good flow was obtained. Anterior tibial pulse is palpable and 2+ while posterior tibial pulse is dopplerable. This morning patient is walking without any difficulty. His blood pressure is elevated as he has not taken the morning meds yet. According to the patient his systolic blood pressure remains around 160 his heart rate remains around 78. I will increase carvedilol to 12.5 mg twice a day. Patient is advised to keep log of blood pressure pulse and send it to us after 10 days. We will see him back in our clinic in 7 days. His wound site looks good. Physical Exam Narrative: EXAM NARRATIVE: GENERAL: Patient is alert, awake and oriented x3. NECK: No jugular vein distension. HEENT: No cyanosis. No icterus. No pallor. HEART: Regular S1 and S2. No murmur, rub or gallop. LUNGS: Clear to auscultate bilaterally. ABDOMEN: Soft, nontender and nondistended. Positive bowel sounds. No guarding, rebound or tenderness. CENTRAL NERVOUS SYSTEM: Grossly nonfocal. EXTREMITIES: Lower extremities without edema bilaterally. Pulses palpable left anterior tibial and dopplerable left posterior tibial Discharge Data Data Completed and Pending: Pending at discharge Category Date Time Status ENROLLMENT MANAGEMENT DIRECTOR request for service Routin e Exams 01/16/20 07:30 Taken Labs from last 24 hours 01/17/20 01/17/20 01/16/20 03:15 03:15 13:55 WBC 12.6 H RBC 3.72 L Hgb 10.9 L Hct 34.5 L MCV 92.7 MCH 29.3 MCHC 31.6 RDW 14.4 Plt Count 351 MPV 8.7 Neut % (Auto) 71.5 Lymph % (Auto) 19.0 Tripp % (Auto) 7.2 Eos % (Auto) 1.3 Baso % (Auto) 0.6 Neut # (Auto) 9.0 H Lymph # (Auto) 2.4 Tripp # (Auto) 0.9 Eos # (Auto) 0.2 Baso # (Auto) 0.1 Nucleated RBC % (a uto) 0 Nucleated RBCs # 0.0 APTT 42.5 H Sodium 138 Potassium 4.0 Chloride 102 Carbon Dioxide 25 Anion Gap 15.0 BUN 8 Creatinine 1.0 GFR Calculation 75.5 L Glucose 102 Calculated Osmolal ity 282 L Calcium 8.5 Vitals: Last Vital Signs Temp 98.1 F 01/17/20 03:48 Pulse 75 01/17/20 03:48 Resp 16 01/17/20 03:48 BP 184/81 01/17/20 08:12 Pulse Ox 93 01/17/20 03:48 Discharge Plan Discharge Patient Disposition: Home, Self-Care Condition: Stable Prescriptions: Continued clonidine HCl 0.1 mg tablet 0.1 mg PO TID Qty: 60 RF: 3 clopidogrel 75 mg Tablet 75 mg PO DAILY Qty: 90 RF: 4 atorvastatin 40 mg Tablet 20 mg PO BEDTIME Qty: 30 RF: 3 aspirin 81 mg Tablet,Delayed Release (Dr/Ec) 81 mg PO DAILY Qty: 30 RF: 3 amlodipine 10 mg Tablet 10 mg PO DAILY Qty: 30 RF: 3 Changed carvedilol 6.25 mg Tablet 12.5 mg PO BID Qty: 60 RF: 3 Discharge Orders: Discharge Order (Routine); Ordered 01/17/20 Ordered By: Abiola Thao Referrals: Abiola Thao MD [Physician] - 3 months Nga James FNP [Nurse Practitioner] - Discharge Diet: Cardiac and Low Salt Discharge Activity: Increase activity as tolerated Patient Instructions: Hypertension (DC), Peripheral Vascular Angioplasty (DC) Activity Restrictions/Additional Instructions: No lifting of more than gallon of milk for next two days. Follow-up with Nga James in 7 days. Please bring your log for blood pressure and pulse twice a day for next [address] Del Castillo's office. I have increased carvedilol to 12.5 mg twice a day. If you notice that your pulse stays less than 60 all the time then reduce your dose of carvedilol to 12.5 mg in the morning and 6.25 mg in the evening. Discharge Attestations Time Spent in Discharge Care*: less than 30 min Specific Discharge Activities: Specific discharge activities: educating patient Time Spent in Smoking Cessation: Time spent discussing smoking cessation with patient: 3 to 10 minutes Quality Metrics Clinical Quality Measures During this hospital stay, did patient experience: None Coding Level of Care Code Established Pt Acute Sheet Writer for Chg Fwd Patient Type Established History Expanded Problem Focused Exam Expanded Problem Focused Medical Decision Making Moderate Complexity Diagnoses PVD (peripheral vascular disease) I73.9 CKD (chronic kidney disease) N18.2 Chronic kidney disease stage: stage 2 (mild) HTN (hypertension) I10 Hypertension type: essential hypertension
--- NOTE | 2020-01-17 09:56 | PC.CHAP ---
Pastoral Care Encounter/Spiritual Assessment Type of Contact [] Declined wire brush operator visit [] Patient/Family/Request visit [] Outpatient visit [] Follow-up visit [] Physician referral [] Code/Alert [x] Routine visit [] Staff referral [] Actively dying [] Patient sleeping [] Family support [] [] Out of room [] Palliative care [] [] Receiving care in room [] Pre-surgical visit [] Trauma [] Long length of stay [] ICU visit [] Other: Relational/Emotional Strength [] Patient feels connected with others/family/visitors/staff [] Distress [] Loneliness/isolation [] Abandonment Spirituality of Patient [] Person of [place]icit[place] [] Attends [employer] of their [place] [] Believes in Prayer [] Reads Bible or Faith materials [] There are Spiritual issues to be addressed Professional System Administrator Interventions [x] Prayer [x] Active listening X] Non-anxious presence [x] Spiritual/emotional support [] Crisis/trauma care [] Spiritual counseling [] Bereavement support [] Provided bereavement packet [] Provided Bible/devotional materials [] Provided toy/stuffed animal, coloring book to patient or family member [] Provided Communion [] Anointing/[place] [] Salvation [x] Completed spiritual assessment [] Other: Impact on Illness or Injury [] Angry [] Fearful [] Anxious [] Often cries [] Exhaustion [] Unable to work [] Unable to attend gnosticist [] Unable to walk/stand [] Unable to read [] Unable to drive [] Unable to eat/drink [] Unable to sleep [] Unable to be with family [] Patient intubated [] Other: Summary Patient resting- requested Professional System Administrator to pray outside room. Time spent with patient 5 min
[2020-01-17 10:00] VITALS: BP 184/81; PULSE 69; RESP 18; TEMP 36.3; O2SAT 98
[2020-01-17 10:04] VITALS: BP 184/81; PULSE 69; RESP 18; TEMP 36.3; O2SAT 98
--- NOTE | 2020-01-17 15:11 | PC.RESP ---
Smoking Cessation information and a schedule of classes sent to patient.
== END 2020-01-17 09:30 | disposition home or self-care (01) ==
LOC: CSU 11:15
PROVIDERS: Admitting Provider Internal Medicine Cardiovascular Disease; PCP Family Medicine; Visit Provider Internal Medicine Cardiovascular Disease
DX: I73.9 Peripheral vascular disease, unspecified (principal); N18.2 Chronic kidney disease, stage 2 (mild); I12.9 Hypertensive chronic kidney disease with stage 1 through stage 4 chronic kidney disease, or unspecified chronic kidney disease; F17.210 Nicotine dependence, cigarettes, uncomplicated; Z79.82 Long term (current) use of aspirin
CPT/HCPCS: 12345; 36415; 37225; 75710; 80048; 85025; 85730; 87635; 96375; C1724; C1725; C1769; C1887; C1894; C2623; G0378; J1644; J2001; J2250; J2270; J3010; J3490; J7030; Q0163; Q9967

== ENCOUNTER 2020-02-14 14:12 | Outpatient (CLI) | payer OTHER, SELFPAY ==
--- NOTE | 2020-02-14 14:15 | USCV_ITS ---
Gab Longoria Age: 64 Gender: M : 1955 Exam Date: 02/14/2020 14:33 Ordering Phys: Abiola Thao MD ([email or web address]) Technologist: ESTEFANIA CROFT Exam Location: [facility] [place] Indication: RECENT SYNCOPE EPISODE Risk Factors: Previous Vascular Surgery: NONE Right Brachial BP: / Left Brachial BP: / Right Left Velocity (cm/s) Spectral Plaque Velocity (cm/s) Spectral Plaque Syst/Diast Broadening Syst/Diast Broadening 183.30/9.30 Prox CCA 136.20/ 13.20 105.20/11.80 Mid CCA 94.70 / 17.10 93.10/ 17.10 Distal CCA 87.10 / 20.90 198.90/46.60 Prox ICA 230.30/ 52.20 150.70/31.10 Mid ICA 191.50/ 56.70 121.20/37.30 Distal ICA 252.60/ 60.80 148.80 ECA 94.00 1.43 ICA/CCA 2.02 Antegrade Vertebral Antegrade 53.80/ 13.70 cm/s 73.60/ 17.10 cm/s Tri Subclavian Tri 131.5 310.1 0 0 FINDINGS Comparison:. none Mixture of calcified and noncalcified plaque in the bifurcations. Intimal thickening measures 3 mm in the right carotid bulb. Left ICA velocity elevation with mild elevation of CCA/ICA. CONCLUSIONS Left ICA stenosis 70-99%, closer to 70%. Right ICA stenosis 50-69%. Bilateral mixed plaque in the bifurcations. Dr. Anna Lozano DO (Electronically Signed) Final Date: 14 February 2020 15:29 S
== END 2020-02-14 14:13 | disposition home or self-care (01) ==
LOC: US 14:13
PROVIDERS: PCP Family Medicine; Visit Provider Internal Medicine Cardiovascular Disease
DX: I65.23 Occlusion and stenosis of bilateral carotid arteries (principal); R55 Syncope and collapse
CPT/HCPCS: 93880

== ENCOUNTER 2020-03-05 07:50 | Outpatient (CLI) | payer OTHER, SELFPAY ==
--- NOTE | 2020-03-05 08:00 | CT_ITS ---
WS: [id number] CT ANGIOGRAM CAROTID ARTERIES HISTORY: Abnormal Carotid Duplex TECHNIQUE: CT angiogram is performed of the carotid arteries. During arterial injection imaging is ob tained from the skull base to the aortic arch in 1.25 mm imaging. Coronal and sagittal reformats are submitted, MIP imaging also reviewed. Additional multiplanar reformats of the carotid arteries are rodríguez bmitted. NASCET criteria utilized. All CT scans at [facility] use at least one of these d ose optimization techniques: automated exposure control; mA and/or kV adjustment per patient size (in cludes targeted exams where dose is matched to clinical indication); or iterative reconstruction. CONTRAST: Omnipaque 350; 95 mL IV. DLP: 876.67 mGycm COMPARISON: 02/12/2020 Right carotid: Common carotid artery: Mild atherosclerosis. Arises normally from the innominate. Internal carotid artery: Small amount of intimal thickening calcified plaque at the bifurcation. Sten osis calculated at 62%. External carotid artery: Patent. Left carotid: Common carotid artery: Arises normally from the aortic arch. No significant stenosis. Internal carotid artery: Atherosclerotic plaque and intimal thickening at the bifurcation. Stenosis c alculated at 65% in the proximal ICA. External carotid artery: Patent. Right vertebral artery: Unremarkable. Left vertebral artery: Unremarkable. Arises normally from the left subclavian artery. Subclavian arteries: No stenosis or abnormality identified. Upper thorax: Paraseptal emphysematous changes at the apices. Thyroid gland: Normal. Osseous structures: No destructive bone lesions. Skull base: No destructive lesions. CT/CT angio neck [id number] IMPRESSION: 1. Proximal LEFT ICA stenosis 65%. Corresponds to the ultrasound findings. 2. Proximal RIGHT ICA stenosis 62%. Corresponds to the ultrasound findings. 3. Mild paraseptal emphysema at the lung apices.
[2020-03-05] MEDS: iohexol 350 mg/mL 100 mL Btl IV (08:40)
[2020-03-05 09:17] LABS: Blood Urea Nitrogen 15 mg/dL (8-23); Glomerular Filtration Rate 85.2 mL/min (90-130)
== END 2020-03-05 07:51 | disposition home or self-care (01) ==
LOC: RADWPI 07:52
PROVIDERS: Family Provider Family Medicine; PCP Family Medicine; Visit Provider Internal Medicine Cardiovascular Disease
DX: I77.9 Disorder of arteries and arterioles, unspecified (principal); I65.23 Occlusion and stenosis of bilateral carotid arteries; J43.9 Emphysema, unspecified
CPT/HCPCS: 70498; 82565; 84520; Q9967

== ENCOUNTER 2020-04-13 07:21 | Emergency (ER) | payer OTHER, SELFPAY ==
[2020-04-13 07:23] VITALS: BP 146/107; PULSE 114; RESP 16; TEMP 36.6; O2SAT 100; BMI 19.2
--- NOTE | 2020-04-13 07:51 | ED_ITS ---
HPI - Dental/Oral General: Chief complaint: Dental/Oral Stated complaint: BLEEDING S/P TEETH EXTRACTION Time Seen by Provider: 04/13/20 07:44 History of Present Illness: Teeth map: 1. Extraction-still bleeding 2. Extraction-still bleeding 3. Extraction-still bleeding 4. Extraction-still bleeding 5. Extraction-still bleeding 6. Extraction-still bleeding Onset (ago): day(s) (6 am 04/12) Duration: intermittent (trickling) Severity: moderate Relieving factors: nothing Exacerbating factors: nothing Context: history of dental caries and other (Surgical extraction) Associated symptoms: Reports no associated symptoms Treatment prior to arrival: none Review of Systems General: Reports: 10 or more systems reviewed and unremarkable except in HPI and below Narrative: Slow bleed from extractions performed yesterday at 0600 am. [facility] ED PFSH: Medical History (Updated 04/13/20 @ 10:01 by Nila Moss APRN) Carotid arterial disease Chronic neck pain Claudication of lower extremity Erectile dysfunction Essential (primary) hypertension HTN (hypertension) Pulmonary nodule PVD (peripheral vascular disease) Surgical History H/O knee surgery Hx of arthroscopic knee surgery Family History Father Cancer Social History Smoking and tobacco status: current every day smoker cigarettes Packs smoked per day: 0.75 Years cigarettes smoked: 40 and e-cigarettes Alcohol intake: never Physical Exam Const: COMMON NORMALS: patient oriented x3 GENERAL APPEARANCE: frail appearing NUTRITIONAL APPEARANCE: thin and underweight HENMT: COMMON NORMALS: normocephalic and atraumatic HEAD & SCALP: normocephalic and atraumatic TEETH & GINGIVA: Yes caries, Yes poor dentition and Yes other (6 lower teeth extracted.) Eye: COMMON NORMALS: Equal, round and reactive pupils present and EOMs intact bilaterally PUPIL: Yes Equal, round and reactive pupils present Neck/C-Spine: COMMON NORMALS: no JVD Resp: COMMON NORMALS: normal respiratory effort, No retractions, No use of accessory muscles, clear to auscultation bilaterally and percussion normal AUSCULTATION: clear to auscultation bilaterally PERCUSSION: percussion normal Cardio: COMMON NORMALS: no JVD, S1 normal heart sound present and S2 normal heart sound present RATE: tachycardic HEART SOUNDS: S1 normal heart sound present and S2 normal heart sound present GI: COMMON NORMALS: Normal to inspection, nondistended, normoactive bowel sounds present : COMMON NORMALS: Yes no CVA tenderness BLADDER/KIDNEY EXAM: Yes no CVA tenderness Back/Pelvis: COMMON NORMALS: no CVA tenderness, thoracic and lumbar spine normal to inspection, no thoracic nor lumbar tenderness and thoraco-lumbar ROM normal Extremity: COMMON NORMALS: normal to inspection and full ROM Neuro: COMMON NORMALS: patient oriented x3 Skin: COMMON NORMALS: no rashes or lesions noted GENERAL SKIN EXAM: no rashes or lesions noted Course ED course: Bleeding consistently slowly trickling since extraction. 6 lower teeth extracted. Currently takes Plavix and ASA. Reevaluation(s): Reevaluation #1: Bleeding controlled at this time. Time: 09:41 Time: 09:58 Reevaluation #3: Discussed precautions to take at home, should bleeding occur again. Will discharge with close follow up with PCP and Oral surgeon. Vital Signs: Vital signs: Vital Signs Temperature 97.8 F 04/13/20 07:23 Pulse Rate 80 04/13/20 08:42 Respiratory Rate 20 H 04/13/20 08:42 Blood Pressure 176/85 04/13/20 08:42 Pulse Oximetry 100 04/13/20 08:42 MDM - Dental/Oral Lab Data: Attestation: I reviewed the patient's lab results. Labs: Lab Results 04/13/20 04/13/20 04/13/20 Range/Units 08:01 08:01 08:01 WBC 18.1 H (4.0-10.0) 10^3/ uL RBC 3.91 L (4.1-5.3) 10^6/u L Hgb 11.6 L (11.7-16.6) g/dL Hct 36.5 L (42.0-52.0) % MCV 93.4 (80-94) fL MCH 29.7 (28.0-34.0) pg MCHC 31.8 (30.0-36.0) g/dL RDW 14.8 (12.1-15.1) % Plt Count 401 H (130-400) 10^3/c mm MPV 9.1 (7.4-10.4) fL Neut % (Auto) 85.2 % Lymph % (Auto) 8.6 % [place] % (Auto) 5.0 % Eos % (Auto) 0.0 % Baso % (Auto) 0.4 % Neut # (Auto) 15.45 H (1.8-7.7) 10^3/u L Lymph # (Auto) 1.6 (0.8-4.8) 10^3/u L [place] # (Auto) 0.9 (0.2-0.9) 10^3/u L Eos # (Auto) 0.0 (0.0-0.8) 10^3/u L Baso # (Auto) 0.1 (0.0-0.1) 10^3/u L Nucleated RBC % (a uto) 0 % Nucleated RBCs # 0.0 /100WBC PT 13.80 (12.1-14.9) SECO NDS INR 1.03 (0.8-1.2) Sodium 137 (136-145) mmol/L Potassium 4.1 (3.5-5.1) mmol/L Chloride 99 (98-107) mmol/L Carbon Dioxide 23 (22-29) mmol/L Anion Gap 19.1 H (5-19) BUN 22 (8-23) mg/dL Creatinine 1.9 H (0.7-1.2) mg/dL GFR Calculation 36.0 L (90-130) mL/min Glucose 192 H (65-115) mg/dL Calculated Osmolal ity 293 (285-295) mOsm/k g Calcium 9.0 (8.5-10.5) mg/dL Total Bilirubin 1.5 H (0.15-1.2) mg/dL AST 13 (0-40) U/L ALT 12 (0-41) U/L Alkaline Phosphata se 141 H (40-130) IU/L Total Protein 7.9 (6.6-8.7) g/dL Albumin 4.6 (3.5-5.2) g/dL Globulin 3.3 (1.3-4.6) g/dL Discharge Plan Discharge Patient Disposition: Home Clinical Impression: Surgical wound hemorrhage after dental procedure Condition: Stable Prescriptions: No Action amlodipine 10 mg tablet 10 mg PO DAILY Qty: 30 RF: 3 aspirin 81 mg tablet,delayed release (DR/EC) 81 mg PO DAILY Qty: 30 RF: 3 pantoprazole 40 mg tablet,delayed release (DR/EC) 40 mg PO DAILY Qty: 90 RF: 3 carvedilol 6.25 mg tablet 12.5 mg PO BID Qty: 60 RF: 3 tadalafil [Cialis] 20 mg tablet 20 mg PO DAILY PRN (Reason: sexual activity) 30 Days Qty: 10 RF: 5 clonidine HCl 0.1 mg tablet 0.1 mg PO TID Qty: 90 RF: 6 clopidogrel 75 mg Tablet 75 mg PO DAILY Qty: 90 RF: 4 atorvastatin 40 mg Tablet 20 mg PO BEDTIME Qty: 30 RF: 3 Discharge Orders: Discharge Order (Routine); Ordered 04/13/20 Ordered By: Nila Moss Referrals: Bryan Tripp MD [Primary Care Provider] - 1-3 days Discharge Diet: Soft Mechanical Discharge Activity: Limit activity as instructed Patient Instructions: Postoperative Bleeding (ED), Acute dental trauma (ED) Activity Restrictions/Additional Instructions: Make a follow up appointment with your Oral Surgeon regarding post-operative bleeding following extraction. Coding Level of Care Code ED [employer] for [facility] Fwd Exam Comprehensive
[2020-04-13 08:09] LABS: Basophils # 0.1 10^3/uL (0.0-0.1); Basophils % 0.4 %; Hematocrit 36.5 % (42.0-52.0); Hemoglobin 11.6 g/dL (11.7-16.6); Lymphocytes # 1.6 10^3/uL (0.8-4.8); Lymphocytes % 8.6 %; Mean Corpuscular HGB Conc 31.8 g/dL (30.0-36.0); Mean Corpuscular Hemoglobin 29.7 pg (28.0-34.0); Mean Corpuscular Volume 93.4 fL (80-94); Mean Platelet Volume 9.1 fL (7.4-10.4); Monocytes # 0.9 10^3/uL (0.2-0.9); Neutrophils # 15.45 10^3/uL (1.8-7.7); Neutrophils % 85.2 %; Nucleated Red Blood Cells % 0 %; Platelet Count 401 10^3/cmm (130-400); Red Blood Count 3.91 10^6/uL (4.1-5.3); Red Cell Distribution Width 14.8 % (12.1-15.1); White Blood Count 18.1 10^3/uL (4.0-10.0)
[2020-04-13] MEDS: ondansetron 2 mg/ML SDV 2 mL 4 MG IVP ×2 (08:18→13:37)
[2020-04-13] MEDS: sodium chloride 0.9% 1,000 ML 999 ML IV (08:19)
[2020-04-13 08:21] LABS: INR 1.03 (0.8-1.2)
[2020-04-13 08:30] LABS: Alanine Aminotransferase 12 U/L (0-41); Albumin Level 4.6 g/dL (3.5-5.2); Alkaline Phosphatase 141 IU/L (40-130); Anion Gap 19.1 (5-19); Aspartate Amino Transferase 13 U/L (0-40); Blood Urea Nitrogen 22 mg/dL (8-23); Carbon Dioxide 23 mmol/L (22-29); Chloride 99 mmol/L (98-107); Globulin 3.3 g/dL (1.3-4.6); Glucose 192 mg/dL (65-115); Osmolality Calculated 293 mOsm/kg (285-295); Potassium 4.1 mmol/L (3.5-5.1); Sodium 137 mmol/L (136-145); Total Bilirubin 1.5 mg/dL (0.15-1.2); Total Protein 7.9 g/dL (6.6-8.7)
--- NOTE | 2020-04-13 08:37 | PC.NURSE ---
patient was given cotton balls saturated in lidacaine with epi and tole to bite down on them.
[2020-04-13 08:42] VITALS: BP 176/85; PULSE 80; RESP 20; O2SAT 100
--- NOTE | 2020-04-13 09:56 | PC.NURSE ---
patient bleeding in mouth decreased and pain is tolerable patient to be discharged
[2020-04-13 09:58] VITALS: BP 154/89; PULSE 97; RESP 18; O2SAT 100
--- NOTE | 2020-04-13 10:49 | W.ED.DENTAL ---
HPI - Dental/Oral General: Chief complaint: Dental/Oral Stated complaint: BLEEDING S/P TEETH EXTRACTION Time Seen by Provider: 04/13/20 07:44 History of Present Illness: HPI Narrative: Extraction 24 hours ago of 6 lower teeth. #[id number]. Review of Systems General: Reports: 10 or more systems reviewed and unremarkable except in HPI and below PFSH ED PFSH: Medical History (Updated 04/13/20 @ 10:01 by Nila Moss APRN) Carotid arterial disease Chronic neck pain Claudication of lower extremity Erectile dysfunction Essential (primary) hypertension HTN (hypertension) Pulmonary nodule PVD (peripheral vascular disease) Surgical History H/O knee surgery Hx of arthroscopic knee surgery Family History Father Cancer Social History Smoking and tobacco status: current every day smoker cigarettes Packs smoked per day: 0.75 Years cigarettes smoked: 40 and e-cigarettes Alcohol intake: never Physical Exam Const: COMMON NORMALS: patient oriented x3 GENERAL APPEARANCE: cooperative and well kempt ORIENTATION/CONSCIOUSNESS: Yes awake and Yes oriented to person HENMT: COMMON NORMALS: normocephalic and atraumatic HEAD & SCALP: normocephalic and atraumatic TEETH & GINGIVA: Yes other (Bleeding to the -22 surgical area.) Eye: COMMON NORMALS: Equal, round and reactive pupils present and EOMs intact bilaterally PUPIL: Yes Equal, round and reactive pupils present Neck/C-Spine: COMMON NORMALS: full ROM, no lymphadenopathy and no JVD Lymph: LYMPHATIC: no lymphadenopathy noted Resp: COMMON NORMALS: normal respiratory effort, No retractions, No use of accessory muscles, clear to auscultation bilaterally and percussion normal AUSCULTATION: clear to auscultation bilaterally PERCUSSION: percussion normal Cardio: COMMON NORMALS: no JVD, regular rhythm, S1 normal heart sound present and S2 normal heart sound present RATE: tachycardic RHYTHM: regular rhythm HEART SOUNDS: S1 normal heart sound present and S2 normal heart sound present GI: COMMON NORMALS: Normal to inspection, nondistended, normoactive bowel sounds present : COMMON NORMALS: Yes no CVA tenderness BLADDER/KIDNEY EXAM: Yes no CVA tenderness Back/Pelvis: COMMON NORMALS: no CVA tenderness Neuro: COMMON NORMALS: patient oriented x3 SENSORIUM/ORIENTATION: Yes oriented to person Psych: APPEARANCE: Yes well kempt Course Reevaluation(s): Reevaluation #1: TXA applied topically to areas of extraction. Pressure applied awaiting evaluation, bleeding slowing. Time: 12:30 Time: 13:23 Reevaluation #3: Nickodem dental lactation consultant Time: 13:45 Additional Reevaluation(s): Manual pressure applied with tea bag moistened per 's direction. Patient refused numbing with injection. Topical lidocaine soak gauzed reinforced tea bag. Will monitor following 15 minutes of manual pressure. Consultations: Consultation #1: While waiting for his family to pick him up his gums have started bleeding again. Surgicel applied to gums along with gauze. Will apply pressure and re-evaluate. Time: 10:49 Consultation #2: Case reviewed with . Due to persistant bleeding topical Transexamic Acid will be used at a 10% solution. Discussed with patient. He is scheduled to see his Oral surgeon wednesday. Time: 13:31 Consultation #3: Spoke with whom performed extractions. She would like him to have a dental block followed by manual pressure and application of tea bag to gums to induce clotting. Time: 14:43 Additional Consultation(s): Bleeding controlled. Will discharge home with directions from to apply Tea bag should it restart and firm manual pressure for 5 min. She will follow up with him on wednesday as scheduled. Vital Signs: Vital signs: Vital Signs Temperature 97.8 F 04/13/20 07:23 Pulse Rate 118 H 04/13/20 14:45 Respiratory Rate 20 H 04/13/20 14:45 Blood Pressure 192/96 04/13/20 14:45 Pulse Oximetry 99 04/13/20 14:45 MDM - Dental/Oral Lab Data: Labs: Lab Results 04/13/20 04/13/20 04/13/20 Range/Units 08:01 08:01 08:01 WBC 18.1 H (4.0-10.0) 10^3/ uL RBC 3.91 L (4.1-5.3) 10^6/u L Hgb 11.6 L (11.7-16.6) g/dL Hct 36.5 L (42.0-52.0) % MCV 93.4 (80-94) fL MCH 29.7 (28.0-34.0) pg MCHC 31.8 (30.0-36.0) g/dL RDW 14.8 (12.1-15.1) % Plt Count 401 H (130-400) 10^3/c mm MPV 9.1 (7.4-10.4) fL Neut % (Auto) 85.2 % Lymph % (Auto) 8.6 % [place] % (Auto) 5.0 % Eos % (Auto) 0.0 % Baso % (Auto) 0.4 % Neut # (Auto) 15.45 H (1.8-7.7) 10^3/u L Lymph # (Auto) 1.6 (0.8-4.8) 10^3/u L [place] # (Auto) 0.9 (0.2-0.9) 10^3/u L Eos # (Auto) 0.0 (0.0-0.8) 10^3/u L Baso # (Auto) 0.1 (0.0-0.1) 10^3/u L Nucleated RBC % (a uto) 0 % Nucleated RBCs # 0.0 /100WBC PT 13.80 (12.1-14.9) SECO NDS INR 1.03 (0.8-1.2) Sodium 137 (136-145) mmol/L Potassium 4.1 (3.5-5.1) mmol/L Chloride 99 (98-107) mmol/L Carbon Dioxide 23 (22-29) mmol/L Anion Gap 19.1 H (5-19) BUN 22 (8-23) mg/dL Creatinine 1.9 H (0.7-1.2) mg/dL GFR Calculation 36.0 L (90-130) mL/min Glucose 192 H (65-115) mg/dL Calculated Osmolal ity 293 (285-295) mOsm/k g Calcium 9.0 (8.5-10.5) mg/dL Total Bilirubin 1.5 H (0.15-1.2) mg/dL AST 13 (0-40) U/L ALT 12 (0-41) U/L Alkaline Phosphata se 141 H (40-130) IU/L Total Protein 7.9 (6.6-8.7) g/dL Albumin 4.6 (3.5-5.2) g/dL Globulin 3.3 (1.3-4.6) g/dL Discharge Plan Discharge Patient Disposition: Home Clinical Impression: Surgical wound hemorrhage after dental procedure Condition: Stable Prescriptions: New Zofran 4 mg tablet 4 mg PO Q8H 3 Days Qty: 9 RF: 0 No Action amlodipine 10 mg tablet 10 mg PO DAILY Qty: 30 RF: 3 aspirin 81 mg tablet,delayed release (DR/EC) 81 mg PO DAILY Qty: 30 RF: 3 pantoprazole 40 mg tablet,delayed release (DR/EC) 40 mg PO DAILY Qty: 90 RF: 3 carvedilol 6.25 mg tablet 12.5 mg PO BID Qty: 60 RF: 3 tadalafil [Cialis] 20 mg tablet 20 mg PO DAILY PRN (Reason: sexual activity) 30 Days Qty: 10 RF: 5 clonidine HCl 0.1 mg tablet 0.1 mg PO TID Qty: 90 RF: 6 clopidogrel 75 mg Tablet 75 mg PO DAILY Qty: 90 RF: 4 atorvastatin 40 mg Tablet 20 mg PO BEDTIME Qty: 30 RF: 3 hydrocodone-acetaminophen 5-325 mg tablet 1 tab PO Q6H PRN (Reason: Pain) RF: 0 hydrocodone-acetaminophen 7.5-325 mg tablet 1 tab PO Q6H PRN (Reason: Pain) RF: 0 Discharge Orders: Discharge Order (Routine); Ordered 04/13/20 Ordered By: Nila Moss Referrals: Bryan Tripp MD [Primary Care Provider] - 1-3 days Discharge Diet: Full LIquid Discharge Activity: Limit activity as instructed Patient Instructions: Acute dental trauma (ED), Postoperative Bleeding (ED) Activity Restrictions/Additional Instructions: Keep follow up appointment with as scheduled Sunday 04/15 Coding Level of Care Code ED [employer]ing [employer] Clerk for [facility] Fwd Exam Comprehensive
--- NOTE | 2020-04-13 10:49 | PC.NURSE ---
patient gums continued to bleed MANAGER SEARCH ENGINE informed and surgicell applied
--- NOTE | 2020-04-13 11:44 | PC.NURSE ---
mouth continues to bleed, son at bedside
--- NOTE | 2020-04-13 13:15 | PC.NURSE ---
bleeding continues in mouth
--- NOTE | 2020-04-13 14:33 | PC.NURSE ---
tea bag applied to gums and pressure applied for 15 minutes
[2020-04-13 14:45] VITALS: BP 192/96; PULSE 118; RESP 20; O2SAT 99
== END 2020-04-13 14:51 | disposition home or self-care (01) ==
PROVIDERS: Emergency Provider Nurse Practitioner Family; PCP Family Medicine
DX: I73.9 Peripheral vascular disease, unspecified (principal); F17.210 Nicotine dependence, cigarettes, uncomplicated
CPT/HCPCS: 12345; 80053; 85025; 85610; 96365; 96372; 96375; 99283; 99284; J2405; J7030

== ENCOUNTER → 2020-04-25 15:04 | Outpatient (BNVA) | payer OTHER, SELFPAY | PROVIDERS: PCP Family Medicine; Visit Provider Internal Medicine Cardiovascular Disease | DX: D64.9 Anemia, unspecified (principal); R58 Hemorrhage, not elsewhere classified | CPT/HCPCS: 80048; 84443; 85025 ==

== ENCOUNTER → 2020-04-26 14:08 | Day surgery (SDC) | payer OTHER, SELFPAY ==
[2020-04-26] VITALS (12 sets, daily range): BP systolic 130–173; BP diastolic 64–83; PULSE 61–71; RESP 15–20; TEMP 36.6–37.3; O2SAT 100; BMI 18.8
--- NOTE | 2020-04-26 14:33 | PC.NURSE ---
HOME MEDICATIONS UPDATED. LANDY SMITH IS HOLDING ALL MEDICATION EXCEPT CLONIDINE UNTIL NEXT EVALUATION SO I DID NOT REMOVE THEM FROM HIS LIST. PT STATED HIS BLOOD PRESSURE IS ALREADY HIGHER AND BELIEVES HE WILL BE BACK ON SCHEDULED MEDS SOON.
--- NOTE | 2020-04-26 18:34 | PC.NURSE ---
PT TRANSFERRED TO ROOM 252 BED 2 VIA WC AND REPORT GIVEN TO THE NURSE FRANSISCO.
--- NOTE | 2020-04-26 18:59 | PC.NURSE ---
patient left in his room with last 50 cc of blood transfusing at 1830. vitals wnl, slightly hypertensive, rate slowed on transfusion soup and pudding given.
== END ==
LOC: OPS 14:10
PROVIDERS: PCP Family Medicine; Visit Provider Internal Medicine Cardiovascular Disease
DX: R58 Hemorrhage, not elsewhere classified (principal)
CPT/HCPCS: 36415; 36430; 86850; 86900; 86920; J3490; P9016

== ENCOUNTER → 2020-07-01 13:38 | Outpatient (BNVA) | payer OTHER, SELFPAY | PROVIDERS: PCP Family Medicine; Visit Provider Nurse Practitioner Family | DX: D64.9 Anemia, unspecified (principal); N18.2 Chronic kidney disease, stage 2 (mild); I73.9 Peripheral vascular disease, unspecified | CPT/HCPCS: 80048; 85025 ==

== ENCOUNTER → 2020-07-24 09:29 | Outpatient (BNVA) | payer OTHER, SELFPAY | PROVIDERS: PCP Family Medicine; Visit Provider Internal Medicine Cardiovascular Disease | DX: I10 Essential (primary) hypertension (principal); I73.9 Peripheral vascular disease, unspecified; I77.9 Disorder of arteries and arterioles, unspecified; R06.02 Shortness of breath; N18.2 Chronic kidney disease, stage 2 (mild) | CPT/HCPCS: 80048; 83735; 83880 ==

== ENCOUNTER → 2020-08-15 09:15 | Outpatient (BNVA) | payer OTHER, SELFPAY | PROVIDERS: PCP Family Medicine; Visit Provider Internal Medicine Cardiovascular Disease | DX: I10 Essential (primary) hypertension (principal); I73.9 Peripheral vascular disease, unspecified; R60.9 Edema, unspecified | CPT/HCPCS: 80048; 83735; 83880 ==

== ENCOUNTER 2020-08-20 15:18 | Outpatient (CLI) | payer OTHER, SELFPAY ==
--- NOTE | 2020-08-20 15:00 | USCV_ITS ---
Gab Longoria Age: 65 Gender: M : 1955 Exam Date: 08/20/2020 15:57 Ordering Phys: Nilam Rodney MD ([email or web address]) Technologist: Yisel Solano Exam Location: [facility] [place] Indication: LEG PAIN Risk Factors: Previous Vascular Surgery: PT SAID PROCEDURES BILATERALLY BUT UNCLEAR RIGHT LEFT BP: 151.0 / 70.00 BP: 175.0/ 79.00 0 0 Waveform Velocity (cm/s) Velocity (cm/s) Waveform Biphasic 145.3 Iliac Prox 251.5 Monophasic Biphasic Iliac Mid Monophasic 134.7 234.4 Biphasic 97.5 Iliac Distal 207.5 Monophasic Biphasic 88.6 TELETYPE CLERK 119.6 Monophasic Monophasic 98.0 SFA Prox 202.6 Monophasic Monophasic 111.7 SFA Mid 229.5 Monophasic Monophasic 68.4 SFA Dist 202.6 Monophasic Monophasic 66.8 POP 55.9 Monophasic Monophasic 29.5 ARM REST BUILDER N/A Monophasic 28.0 DPA 40.4 Monophasic 0.6 MARIELENA 0.4 FINDINGS RT PT 82 DP 98 LT PT N/A DP 64 Moderate diffuse plaques in the femoral and iliac arteries on the right side. Moderate to heavy plaques in the iliac, femoral artery segments on the left side with significant flow turbulence. No Doppler flow signals in the posterior tibial artery on the left side Diminished resting ABIs bilaterally CONCLUSIONS 1. Features suggestive of severe peripheral artery disease with multisegmental involvement on the left side. Possible total occlusion of the posterior tibial artery on the left side. 2. Features of moderate peripheral artery disease mostly involving the infrapopliteal vessels on the right side. No similar previous studies are available for comparison Dr Neymar Brunner MD [facility] (Electronically Signed) Final Date: 20 August 2020 18:24 S
== END 2020-08-20 15:19 | disposition home or self-care (01) ==
LOC: US 15:19
PROVIDERS: PCP Family Medicine; Visit Provider Internal Medicine Cardiovascular Disease
DX: I73.9 Peripheral vascular disease, unspecified (principal); M79.604 Pain in right leg; M79.605 Pain in left leg
CPT/HCPCS: 93925

== ENCOUNTER 2020-08-20 15:23 | Outpatient (CLI) | payer OTHER, SELFPAY ==
--- NOTE | 2020-08-20 15:45 | USCV_ITS ---
Gab Longoria Age: 65 Gender: M : 1955 Exam Date: 08/20/2020 15:39 Ordering Phys: Vikash Vásquez MD (Andy) [place][email or web address] [place] Technologist: Yisel Solano [place] [facility] [place]: STENOSIS Risk Factors: Previous Vascular Surgery: Right Brachial BP: / Left Brachial BP: / Right Left Velocity (cm/s) Spectral Plaque Velocity (cm/s) Spectral Plaque Syst/Diast Broadening Syst/Diast Broadening 118.30/22.30 Prox CCA 177.70/ 41.00 105.20/23.70 Mid CCA 113.90/ 29.60 109.10/22.30 Distal CCA 97.90 / 21.80 239.30/54.70 Prox ICA 251.30/ 76.40 209.60/57.00 Mid ICA 237.20/ 94.50 139.00/34.20 Distal ICA 332.70/ 116.20 164.30 ECA 107.20 2.27 ICA/CCA 2.92 Antegrade Vertebral Antegrade 61.50/ 25.10 cm/s 84.10/ 27.60 cm/s Tri Subclavian Tri FINDINGS Moderate heterogeneous diffuse plaques at the bifurcations and the internal carotid arteries bilaterally. Intimal thickening and minimal plaque in the common carotid arteries bilaterally. Antegrade flow in the vertebral arteries bilaterally. Normal Doppler flow signals in the external carotid arteries bilaterally Spectral broadening and flow turbulence in the internal carotid arteries bilaterally. CONCLUSIONS Moderate heterogeneous diffuse plaques at the bifurcations and the internal carotid arteries bilaterally with abnormal Doppler flow signals, consistent with a 50 to 69% stenosis. No significant stenosis of the vertebral, external carotid and subclavian arteries, based on the above findings Dr Neymar Brunner MD [facility] (Electronically Signed) Final Date: 21 August 2020 14:14 S
== END 2020-08-20 15:24 | disposition home or self-care (01) ==
LOC: US 15:24
PROVIDERS: PCP Family Medicine; Visit Provider Thoracic Surgery (Cardiothoracic Vascular Surgery)
DX: I65.23 Occlusion and stenosis of bilateral carotid arteries (principal)
CPT/HCPCS: 93880

== ENCOUNTER 2020-09-05 07:46 | Outpatient (CLI) | payer OTHER, SELFPAY ==
--- NOTE | 2020-09-05 08:00 | CT_ITS ---
WS: [id number] CT ANGIOGRAPHY OF THE ABDOMINAL AORTA WITH RUNOFF TO THE ANKLES HISTORY: I73.9 - Peripheral vascular disease, unspecified TECHNIQUE: Arterial injection is performed during imaging to evaluate the aorta and runoff vessels to the ankles. MIP and volume rendering imaging has also been performed. All images are reviewed. All C T scans at [facility] use at least one of these dose optimization techniques: automated ex posure control; mA and/or kV adjustment per patient size (includes targeted exams where dose is match ed to clinical indication); or iterative reconstruction. Contrast: Visipaque 320; 95 mL IV. DLP: 1278.38 mGycm COMPARISON: Arterial duplex. Abdominal aorta: Moderate atherosclerotic disease within the aorta. Intimal thickening with calcifica tion. Asymmetric thickening of the intima. New plaque ulcerations in the infrarenal aorta extending t o the LEFT and posteriorly. No high-grade stenosis. Celiac axis and SMA are intact. Short segment bernabe nt in the proximal LEFT renal artery. 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 High-grade stenosis involving t he origin of the CONOR. RIGHT lower extremity arterial system: Extensive atherosclerotic plaque in the proximal iliac. There is a focal stenosis proximally and near complete occlusion in the distal iliac artery. There is a marcie rt segment stent in the proximal external iliac artery. Stent does appear patent. There is an additio nal moderate stenosis of the distal end of the stent. Internal iliac artery severely diseased occlude d proximally. SFA and deep profunda are patent with multifocal areas of plaque and mild to moderate stenosis. Moderate disease in the popliteal artery. Three-vessel runoff to the ankle. LEFT lower extremity arterial system: Focal ulcerated plaque in the proximal common iliac with extens peter atherosclerotic plaque. Additional short dissection or ulcerated plaque in the distal iliac. Ther e is extensive intimal thickening in the iliac arteries. High-grade stenosis and near complete occlus ion in the external iliac artery. Patency of the lumen throughout the femoral artery. Multiple areas of 50% stenosis in the SFA. High-grade stenosis mid SFA. Moderate plaque very poor runoff to the ankl e via the tibial and peroneal arteries. Small caliber popliteal artery. During this arterial imaging there is asymmetric enhancement of the LEFT lower extremity venous syste m. The no AV fistula is noted. Lung bases are clear. Heart is normal. Small hiatal hernia. Liver, spleen, pancreas and gallbladder a nd RIGHT adrenal are negative. Mild LEFT adrenal hyperplasia. Severe atrophy of the RIGHT kidney unch anged. Normal enhancement of the LEFT kidney. No ascites or adenopathy. Prostate enlargement. CT/CT angio abd aorta runof 01358 IMPRESSION: 1. Moderate atherosclerotic plaque abdominal aorta with new ulcerations in the infrarenal aorta. No high-grade stenosis. 2. Near complete occlusion of the RIGHT external iliac artery proximal to the stent. 3. Patent RIGHT iliac stent. 4. Multifocal focal areas of moderate stenosis throughout the RIGHT SFA. 5. Multifocal areas of ulcerated plaque and intimal thickening LEFT common wilian ac artery. 6. High-grade stenosis with near complete occlusion LEFT external iliac artery . 7. Multifocal moderate stenoses throughout the SFA and popliteal artery. 8. Poor runoff to the ankles below the knees, bilaterally. 9. 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 10. Patent LEFT renal artery stent.
[2020-09-05] MEDS: iodixanol 320 mg/mL 100mL Btl IV (08:32)
== END 2020-09-05 07:47 | disposition home or self-care (01) ==
LOC: RADWPI 07:50
PROVIDERS: PCP Family Medicine; Visit Provider Internal Medicine Cardiovascular Disease
DX: I73.9 Peripheral vascular disease, unspecified (principal); N26.1 Atrophy of kidney (terminal); I70.8 Atherosclerosis of other arteries; I70.0 Atherosclerosis of aorta
CPT/HCPCS: 75635; Q9967

== ENCOUNTER → 2020-09-23 08:30 | Outpatient (BNVA) | payer OTHER, SELFPAY | PROVIDERS: PCP Family Medicine; Visit Provider Internal Medicine Cardiovascular Disease | DX: D64.9 Anemia, unspecified (principal) | CPT/HCPCS: 85025 ==

== ENCOUNTER → 2020-10-03 10:25 | Outpatient (BNVA) | payer OTHER, SELFPAY | PROVIDERS: PCP Family Medicine; Visit Provider Internal Medicine Cardiovascular Disease | DX: Z20.828 Contact with and (suspected) exposure to other viral communicable diseases (principal); I73.9 Peripheral vascular disease, unspecified | CPT/HCPCS: 87635 ==

== ENCOUNTER 2020-10-10 12:57 | Observation (INO) | payer OTHER, SELFPAY ==
[2020-10-03 09:19] LABS: Basophils # 0.1 10^3/uL (0.0-0.1); Basophils % 0.9 %; Eosinophils # 0.1 10^3/uL (0.0-0.8); Eosinophils % 0.7 %; Hematocrit 33.8 % (42.0-52.0); Hemoglobin 10.7 g/dL (11.7-16.6); Lymphocytes % 26.4 %; Mean Corpuscular HGB Conc 31.7 g/dL (30.0-36.0); Mean Corpuscular Hemoglobin 29.6 pg (28.0-34.0); Mean Corpuscular Volume 93.4 fL (80-94); Mean Platelet Volume 8.1 fL (7.4-10.4); Monocytes # 0.6 10^3/uL (0.2-0.9); Monocytes % 8.4 %; Neutrophils # 4.67 10^3/uL (1.8-7.7); Neutrophils % 63.2 %; Nucleated Red Blood Cells % 0 %; Platelet Count 402 10^3/cmm (130-400); Red Blood Count 3.62 10^6/uL (4.1-5.3); Red Cell Distribution Width 16.7 % (12.1-15.1); White Blood Count 7.4 10^3/uL (4.0-10.0)
[2020-10-03 09:43] LABS: Anion Gap 14.3 (5-19); Blood Urea Nitrogen 17 mg/dL (8-23); Carbon Dioxide 25 mmol/L (22-29); Chloride 103 mmol/L (98-107); Glomerular Filtration Rate 55.6 mL/min (90-130); Glucose 101 mg/dL (65-115); Osmolality Calculated 288 mOsm/kg (285-295); Potassium 4.3 mmol/L (3.5-5.1); Sodium 138 mmol/L (136-145)
[2020-10-10] VITALS (27 sets, daily range): BP systolic 136–224; BP diastolic 53–90; PULSE 70–89; RESP 12–25; TEMP 36.7; O2SAT 97–100
--- NOTE | 2020-10-10 10:00 | XACV_ITS ---
Ht: 175 cm Wt: 62 kg BSA: 1.73 m2 Any Known Allergies: No known allergies Gender: Male : 1955 Exam Type: Invasive Peripheral Vascular Procedure(s): Procedure Description: Peripheral Cath Diagnostic Procedure Procedure Description: Abdominal aortic angiography Exam Priority: Routine Conclusions Peripheral Procedure Description: severe lifestyle limiting claudication of right leg [place] grade II, category 4:Brit[place] stage III. Procedure Abdominal aorta : Moderate aneurysm with atherosclerosis Left and right renal artery has luminal irregularities Left common iliac artery has luminal irregularity Right common iliac artery has distal eccentric moderate to severe stenosis in the distal segment Left internal iliac and right internal iliac has multiple stenotic moderate lesions Right external iliac artery stent has mild in-stent restenosis Left external iliac artery is diffusely diseased with moderate to severe long lesion Left and right common femoral artery has luminal irregularity Left and right profunda femoral artery has luminal irregularity Right SFA has luminal irregularity Left SFA has mid highly calcified complete occlusion reconstitute in the distal segment Left popliteal arteries has luminal irregularity left tibioperoneal trunk is mid and distal eccentric severely calcified lesions No right and left leg runoff was performed . Recommendations 1-Return to inpatient for close monitoring and routine cath care 2-Risk factor modification for secondary prevention 3-Statin and aspirin 81 mg life--long, if tolerated 4-referred to vascular surgery for bilateral severe iliac disease 5-Continue optimal medical management 6-Follow up with Dr. Thao in four weeks and your primary care in 10 days. Hemodynamic Data Phase:Rest AO : 182.0 / 68.0 ( 112.0 ) @ 12:41:00 PM Access Site Site: Right Femoral artery Sheath Size: 6 Fr Hemost... Success: Unsuccessful Site: Right Radial artery Sheath Size: 6 Fr Hemost... Success: Unsuccessful Procedure Details Findings Procedure Consent Obtained. Attempts made to contact Dr. Thao. No answer. Will call again. Pre-Procedure Time Out. Identified patient by full name and date of as verbalized by the patient/guarantor. Does the consent match the physician's order: Yes. Accurate & Complete Informed Consent: Yes. Inpatient/Outpatient History & Physical on Chart: Yes. If H&P is completed, is and addenduem needed: No; If yes, is the addendum complete: N/A. Visualize and Verify Site with Patient/Guarantor: N/A. Relevant Radiology Images available: Yes. Pre-op teaching completed and patient verbalized understanding. The risks, benefits, and alternatives of sedation and/or procedure were discussed by physician. The patient agrees to continue. Procedure started. Correct patient, site and procedure confirmed by cath team. Current diagnosis: PAD. PERRLA. Strong, equal hand medication aid bilaterally. Lungs clear x 5 lobes. IV Site on Arrival: 20 gauge in the left anticubital. IV Fluids: 0.9% NaCl at KVO. 0 mL infused prior to slab installer. Pre Procedural Pulses: right dorsalis pedis was 2+. Pre Procedural Pulses: left dorsalis pedis was Doppled. Pre Procedural Pulses: bilateral posterior tibial was Doppled. Pre Procedural Pulses: bilateral radial was 3+. Oxygen started at 2liters/min via nasal canula. bilateral groins was prepped with chloroprep then draped in the usual sterile fashion. Physician notified. Baseline sample Acquired. HR: 73 BPM. Equipment: Peripheral. Cardiac Cath Pack. ACIST Manifold Kit Model BT 2000. Heparinized Saline (2 units/mL), 1000 mL bag. Physician arrived. Physician scrubbed in. Immediate Pre-Procedure Time Out. Correct Patient: Yes; Correct Procedure: Yes; Correct Site: Yes; Correct Patient Position: Yes; Correct Supplies: Yes; Dried Flammable Prep: Yes; Blood Products Available: No;. Lidocaine 1% infiltrated to the right groin. Arterial access obtained with micropuncture set. Hand injection performed through the sheath. Seeker inserted over the glidewire. Dr. Thao and Dr. Otto reviewing past images. Sheath flushed periodically to maintain patency. Femoral site aborted. Lidocaine 1% infiltrated to the right radial. Arterial access obtained. Glidewire inserted. 6FR angled Pigtail catheter inserted over the glidewire. Glidewire out. Abdominal aortogram performed in [place] @ 10 mL/sec for a total of 30 mL. Abdominal aortogram performed in [place] @ 10 mL/sec for a total of 30 mL. Catheter out over the glidewire. TR band placed. Hemostasis obtained. Post Procedure: Pulses reassessed and unchanged. PERRLA. Strong, equal hand medication aid bilaterally. No VTE prophylaxis required. Medication's Wasted: Heparin = 4000 units mL. Medication's Wasted: Nitro = 49.6 mg. Medication's Wasted: Other = Versed 1 mg. Total IV fluids: 75 mL. Contrast type used: Visipaque 320 mgI/mL, 500 mL bottle. Post-op diagnosis: Severe PAD. Complications: None. Physician will send for surgical consult. Estimated blood loss: 5mL-10mL. Procedure completed. Vital chart was stopped. Patient transferred by bed to 1st floor. Procedure Medications Start: 5:01 PM Stop: 5:01 PM Medication: Versed Amount: 2 mg Route: I.V. Start: 5:04 PM Stop: 5:04 PM Medication: Versed Amount: 1 mg Route: I.V. Start: 5:05 PM Stop: 5:05 PM Medication: Fentanyl Amount: 50 mcg Route: I.V. Start: 5:36 PM Stop: 5:36 PM Medication: Versed Amount: 1 mg Route: I.V. Start: 5:37 PM Stop: 5:37 PM Medication: Fentanyl Amount: 50 mcg Route: I.V. Start: 5:39 PM Stop: 5:39 PM Medication: Versed Amount: 1 mg Route: I.V. Start: 5:45 PM Stop: 5:45 PM Medication: Versed Amount: 1 mg Route: I.V. Start: 5:45 PM Stop: 5:45 PM Medication: Fentanyl Amount: 50 mcg Route: I.V. Start: 5:46 PM Stop: 5:46 PM Medication: Nitrogylcerin Amount: 200 mcg Route: I.A. Start: 5:49 PM Stop: 5:49 PM Medication: Nitrogylcerin Amount: 200 mcg Route: I.A. Start: 5:50 PM Stop: 5:50 PM Medication: Heparin Amount: 5000 units Route: I.V. I, the attending physician, have reviewed and verified all procedure medications. Yes, all medications given per verbal order History/Risk Factors Hypertension: No Dyslipidemia: No Peripheral Arterial Disease (PAD): No Obesity: No Renal Disease: No Tobacco Use: Current/Recent(w/in 1 year) Prior Interventions PCI: No CABG: No Valve Surgery: No Report Signatures Finalized by Abiola Thao MD on 10/15/2020 05:21 PM
[2020-10-10] MEDS: sodium chloride 0.9% 1,000 ML 100 ML IV (10:17)
[2020-10-10] MEDS: hyDRALAzine 20 mg/mL INJ 1 mL 10 MG IVP (10:34)
[2020-10-10] MEDS: LORazepam 1 mg Tablet PO (10:35)
[2020-10-10] MEDS: diphenhydrAMINE 50 mg Capsule PO (10:35)
[2020-10-10] MEDS: nitroglycerin 1 gm/inch oint Pkt 1 INCH TOPICAL (10:35)
--- NOTE | 2020-10-10 12:42 | PC.NURSE ---
pt taken to [facility] for continued monitoring due to delay in case time. will be doing procedure at 1630.
--- NOTE | 2020-10-10 15:30 | PC.NURSE ---
telephone instructions from Dr stallworth to start nirto gtt for hypertention
[2020-10-10] MEDS: nitroglycerin drip 50 MG/250 ML PREMIX IV (16:02)
--- NOTE | 2020-10-10 16:57 | P.HP_ITS ---
Same Day Surgery H&P Indication for Procedure/HPI DATE OF PROCEDURE: October 10, 2020 CHIEF COMPLAINT/INDICATIONFOR SURGICAL PROCEDURE: Lifestyle limiting claudication, uncontrollable PREOP DIAGNOSIS: Lifestyle limiting claudication of left leg PLANNED PROCEDRUE: Operation Date: 10/10/20 10:00 Proposed Procedures p Peripheral Angiogram 52177 I77.9(Not Applicable) - Abiola Thao MD 65-year-old male past medical history significant for history of tobacco abuse, noncompliance, severe peripheral vascular disease, chronic kidney disease with renal artery stenosis status post drug-eluting stent to single renal vessel for worsening of lifestyle limiting claudication underwent CTA of abdomen with runoff noted to have bilateral extensive high-grade lesions in iliac arteries and superficial femoral arteries. It is the reason patient has been advised to undergo peripheral angiogram. Today he is here for read. Patient baseline creatinine is 1.3. We have started rehydration on him. Patient understand the risk for contrast-induced nephropathy, risk for major minor bleed stroke vascular injury leading to urgent or emergent surgery and worse case scenario . He understand FDA warning regarding drug-coated balloon with increased mortality in that group and would like to use it if indicated. We will proceed with peripheral angiogram today. We will monitor his creatinine further plan will be devised as per progress the patient. Medications/Allergies* Home Medications Medication Instructions Recorded Confirmed Type hydralazine 25 mg PO DAILY 10/09/20 10/09/20 History Allergies/Adverse Reactions Allergy/AdvReac Type Severity Reaction Status Date / Time No Known Allergies Allergy Verified 09/06/20 10:06 Current Medications: Generic Name Dose Route Start Last Admin Trade Name Freq PRN Reason Stop Dose Admin Sodium Chloride 1,000 mls @ 100 mls/hr 10/10/20 09:00 10/10/20 10:17 Sodium Chloride 0.9% IV 10/10/20 18:59 100 mls/hr .Q10H ONE Administration Nitroglycerin/Dextrose 50 mg in 250 mls @ 0 mls/hr 10/10/20 15:45 10/10/20 16:02 Nitroglycerin Drip IV 5 mcg/min .Q0M VALERIE 1.5 mls/hr Administration Protocol Per Protocol Pertinent History/Comorbid Conditions* Medical History (Updated 04/29/20 @ 20:35 by Abiola Thao MD) Carotid arterial disease Chronic neck pain Claudication of lower extremity Erectile dysfunction Essential (primary) hypertension HTN (hypertension) Pulmonary nodule PVD (peripheral vascular disease) Shortness of breath Surgical History (Updated 10/12/19 @ 12:02 by BETTE Miller) H/O knee surgery Hx of arthroscopic knee surgery Family History (Updated 09/15/19 @ 09:51 by Sara Alvarez LPN) Cancer Father Social History Smoking and tobacco status: current every day smoker cigarettes Packs smoked per day: 0.75 Years cigarettes smoked: 40 and e-cigarettes Quit status (tobacco): has quit using tobacco Year quit tobacco: 2019 Former quit date comment: May 2020 Alcohol intake: never Pertinent Exam Findings alert, oriented x 3, clear to auscultation bilaterally, regular rate & rhythm, operative site marked and procedure specific exam findings Conscious Sedation Assessment PATIENT ASSESSED PRIOR TO SEDATION, WITH NO CHANGE NOTED: Yes AIRWAY EVAL/ANESTHESIA PLAN: normal airway, ASA II, Risks, benefits & alternatives of sedation and/or procedure discussed and Patient agrees to continue as planned Recommendations Surgery/Procedure today Coding Level of Care Code Acute Drawbench Operator Helper for Estuardo Gomes
--- NOTE | 2020-10-10 16:57 | W.PM.OPSUD ---
Surgery/Procedure H&P Update DATE OF PROCEDURE: October 10, 2020 DATE H&P PERFORMED: 01/16/20 H&P UPDATE INFORMATION: I have examined patient prior to procedure, No changes to prior documentation, Changes to prior documentation as noted here and H&P to be scanned into chart PREOP DIAGNOSIS: Lifestyle limiting claudication of left leg PLANNED PROCEDURE: Operation Date: 10/10/20 10:00 Proposed Procedures p Peripheral Angiogram 74799 I77.9(Not Applicable) - Abiola Thao MD PATIENT REASSESSED PRIOR TO SEDATION, WITH NO CHANGE NOTED: Yes PHYSICAL EXAM: alert and oriented x 3 AIRWAY EVAL/ANESTHESIA PLAN: ASA II, Risks, benefits & alternatives of sedation and/or procedure discussed and Patient agrees to continue as planned
--- NOTE | 2020-10-10 20:13 | PC.NURSE ---
Patient verbalized that is it okay to talk to family member Sheree Longoria.
[2020-10-10 21:00] LABS: Partial Thromboplastin Time 72.3 SECONDS (23.9-36.7)
[2020-10-10] MEDS: amlodipine 5 mg Tablet PO (21:40)
[2020-10-10] MEDS: carvedilol 6.25 mg Tablet PO (21:40)
[2020-10-10 23:05] LABS: Partial Thromboplastin Time 36.5 SECONDS (23.9-36.7)
[2020-10-10] MEDS: fentaNYL 50 mcg/mL INJ 2mL IVP (23:12)
--- NOTE | 2020-10-10 23:20 | PC.NURSE ---
Began removing air from TR band at 2100. Air was removed TR band per protocol/order. TR band removed from right wrist at 2300. Radial pulse present. Skin warm and color WNL. VSS. No oozing or hematoma noted. Dressing placed to right wrist.
[2020-10-10] MEDS: ALPRAZolam 0.25 mg Tablet PO (23:26)
--- NOTE | 2020-10-10 23:59 | PC.NURSE ---
Dr. Thao notified of blood pressure of 171/78. Patient's blood pressure has been ranging 200-170s systolic. Nitro drip is running at 150 mcg. Ordered to give 10 mg IV Hydralazine now. If blood pressure is not 150 or less systolic after that, give another 10 mg IV Hydralazine.
[2020-10-11] VITALS (22 sets, daily range): BP systolic 112–178; BP diastolic 55–87; PULSE 66–83; RESP 11–26; TEMP 36.4–37.2; O2SAT 96–98
[2020-10-11] MEDS: hyDRALAzine 20 mg/mL INJ 1 mL 10 MG IVP (00:16)
[2020-10-11] MEDS: temazepam 15 mg Capsule PO (00:21)
--- NOTE | 2020-10-11 01:07 | PC.NURSE ---
After receiving 10 mg IV Hydralazine, patient's blood pressure came down to 134/66. Nitro drip has been titrated down over a period of time to 50 mcg. Will titrate more as needed. Sheath removed from right groin at 2340. Manual pressure held for 20 minutes. VSS. Patient tolerated well. Dressing placed to right groin. No bleeding or hematoma noted. Pedal pulses present. Will monitor.
--- NOTE | 2020-10-11 02:33 | PC.NURSE ---
Right groin and right wrist have been assessed q15 minutes with no issues. Neurovascular and site assessments WNL. VSS. Nitro drip titrated off. Patient educated on post-cath activity restrictions and care and verbalized understanding. Radial and pedal pulses present. Will monitor.
[2020-10-11 05:14] LABS: Anion Gap 14.2 (5-19); Blood Urea Nitrogen 19 mg/dL (8-23); Calcium 7.9 mg/dL (8.5-10.5); Carbon Dioxide 21 mmol/L (22-29); Chloride 109 mmol/L (98-107); Glomerular Filtration Rate 55.6 mL/min (90-130); Glucose 99 mg/dL (65-115); Osmolality Calculated 292 mOsm/kg (285-295); Potassium 4.2 mmol/L (3.5-5.1); Sodium 140 mmol/L (136-145)
[2020-10-11 05:19] LABS: Creatinine Clr Calc Pharmacy 54.4793
[2020-10-11] MEDS: HYDROcodone-acetaminophen 5-325 mg Tablet 1 TAB PO (06:06)
--- NOTE | 2020-10-11 06:09 | PC.NURSE ---
Patient ambulated in prieto with nurse. Upon ambulation, patient began complaining of left leg pain. Right groin and right wrist sites WNL. VSS.
[2020-10-11] MEDS: carvedilol 6.25 mg Tablet PO (09:35)
[2020-10-11] MEDS: aspirin 81 mg EC Tablet PO (09:35)
[2020-10-11] MEDS: clopidogrel 75 mg Tablet PO (09:35)
[2020-10-11] MEDS: amlodipine 5 mg Tablet PO (09:35)
[2020-10-11] MEDS: hyDRALAzine 25 mg Tablet PO (09:35)
[2020-10-11] MEDS: lisinopril 20 mg Tablet PO (09:35)
--- NOTE | 2020-10-11 10:38 | PM.DCS ---
Discharge Providers Date of Admission: 10/10/20 12:57 Date of Discharge: October 11, 2020 Attending Provider at Admission: Abiola Thao MD Attending Provider at Discharge: Abiola Thao MD Primary Care Provider: Bryan Tripp MD Reason for Visit Reason for Visit: Peripheral Diagnostic Hospital Course Hospital Course 65-year-old male past medical history significant for malignant hypertension hyperlipidemia noncompliance severe peripheral vascular disease, history of renal stenting for renal artery severe stenosis with single functional kidney abdominal aortic atherosclerotic ectasia with aneurysm and prior history of multiple peripheral vascular disease intervention for worsening of claudication underwent peripheral angiogram noted to have severe bilateral iliac disease and total occlusion of left SFA. Due to nature of his disease it was thought that he will be better off with vascular surgical intervention. His blood pressure was very high during this admission as he took himself off of most of the medicine at home. I have discussed with him in detail regarding necessity for compliance. His medicine were titrated which improved his blood pressure. This morning he denies any complaint blood pressure is also stabilized. He is being discharged home with referral to vascular surgery as an outpatient. Right groin and right wrist wound looks good. No hematoma no bruising. Physical Exam Narrative: EXAM NARRATIVE: GENERAL: Patient is alert, awake and oriented x3. NECK: No jugular vein distension. HEENT: No cyanosis. No icterus. No pallor. HEART: Regular S1 and S2. No murmur, rub or gallop. LUNGS: Clear to auscultate bilaterally. ABDOMEN: Soft, nontender and nondistended. Positive bowel sounds. No guarding, rebound or tenderness. CENTRAL NERVOUS SYSTEM: Grossly nonfocal. EXTREMITIES: Lower extremities without edema bilaterally. Pulses not palpable in the lower extremities, both dorsalis pedis and posterior tibial. 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 Routin e Exams 10/10/20 10:00 Taken Labs from last 24 hours 10/11/20 10/10/20 10/10/20 04:19 22:48 20:30 APTT 36.5 72.3 H Sodium 140 Potassium 4.2 Chloride 109 H Carbon Dioxide 21 L Anion Gap 14.2 BUN 19 Creatinine 1.3 H GFR Calculation 55.6 L Glucose 99 Calculated Osmolal ity 292 Calcium 7.9 L Vitals: Last Vital Signs Temp 97.6 F 10/11/20 07:34 Pulse 71 10/11/20 08:51 Resp 14 10/11/20 07:34 BP 176/71 10/11/20 07:34 Pulse Ox 98 10/11/20 08:51 Discharge Plan Discharge Patient Disposition: Home Condition: Stable Prescriptions: New carvedilol 6.25 mg Tablet 6.25 mg PO BID Qty: 60 RF: 4 amlodipine 5 mg Tablet 5 mg PO DAILY Qty: 30 RF: 4 Continued tadalafil [Cialis] 20 mg tablet 20 mg PO DAILY PRN (Reason: sexual activity) 30 Days Qty: 10 RF: 5 aspirin 81 mg tablet,delayed release (DR/EC) 81 mg PO DAILY Qty: 90 RF: 3 lisinopril 20 mg tablet 20 mg PO DAILY Qty: 90 RF: 3 clopidogrel 75 mg Tablet 75 mg PO DAILY Qty: 90 RF: 4 hydralazine 25 mg tablet 25 mg PO DAILY RF: 0 Discharge Orders: Discharge Order (Routine); Ordered 10/11/20 Ordered By: Abiola Thao Referrals: Abiola Thao MD [Physician] - 3 months (YOU HAVE A FOLLOW UP APPOIMENT WITH DR. THAO ON December AT 200 PM. IF YOU HAVE ANY QUESTIONS PLEASE CALL [phone].) Nga Limon FNP [Nurse Practitioner] - 7-10 days (YOU HAVE A FOLLOW UP APPOINTMENT WITH RICCO LIMON ON September AT 1000. IF YOU HAVE A QUESTION OR NEED TO RESCHEDULE PLEASE CALL [phone]. ) Discharge Diet: Cardiac and Low Salt Patient Instructions: Amlodipine (By mouth), Carvedilol (By mouth), Peripheral Vascular Angioplasty (DC), Post Angiogram Home Care Instructions Activity Restrictions/Additional Instructions: Follow-up with Dr. Thao in 3 months. You will be referred to Dr. Eugene Haile [facility] vascular surgeon. If you do not hear from Dr. Haile's office over the next [address] Thao's office for reminder Discharge Attestations Time Spent in Discharge Care*: less than 30 min Specific Discharge Activities: educating patient Quality Metrics Clinical Quality Measures During this hospital stay, did patient experience: None Coding Level of Care Code Acute Chg FW DC note Exam Problem Focused
--- NOTE | 2020-10-11 11:07 | PC.NURSE ---
Patient discharged home at this time. Patient provided with discharge instructions and educated patient on new medications patient verbalized understanding patient anxious to leave facility IV discontinued cath intact min bleeding noted patient taken to main entrance via wheel chair. patient did not want nurse to take to ride patient insisted on walking to ride he reported they was parked in the far parking lot. patient alert oriented and in stable condition.
--- NOTE | 2020-10-14 13:27 | PC.RESP ---
Smoking Cessation information sent to patient.
== END 2020-10-11 11:07 | disposition home or self-care (01) ==
LOC: CCL 10-11 02:51 → CSU 10-11 02:51
PROVIDERS: Admitting Provider Internal Medicine Cardiovascular Disease; PCP Family Medicine; Visit Provider Internal Medicine Cardiovascular Disease
DX: I73.9 Peripheral vascular disease, unspecified (principal); I10 Essential (primary) hypertension; E78.5 Hyperlipidemia, unspecified; Z91.19 Patient's noncompliance with other medical treatment and regimen; Z87.891 Personal history of nicotine dependence; Z79.82 Long term (current) use of aspirin; I25.10 Atherosclerotic heart disease of native coronary artery without angina pectoris
CPT/HCPCS: 36415; 75625; 80048; 85025; 85730; C1769; C1887; C1894; G0378; J0360; J1644; J2250; J3010; J3490; J7030; Q0163; Q9967

== ENCOUNTER → 2020-10-21 10:16 | Outpatient (BNVA) | payer OTHER, SELFPAY | PROVIDERS: PCP Family Medicine; Visit Provider Nurse Practitioner Family | DX: I73.9 Peripheral vascular disease, unspecified (principal) | CPT/HCPCS: 80048 ==

== ENCOUNTER 2022-07-01 09:52 | Emergency (ER) | payer MEDICARE, SELFPAY ==
[2022-07-01] VITALS (8 sets, daily range): BP systolic 140–195; BP diastolic 64–118; PULSE 75–107; RESP 16–18; TEMP 36.6–36.9; O2SAT 99–100; BMI 20.7
[2022-07-01 11:12] LABS: Basophils % 0.4 %; Eosinophils % 0.4 %; Hematocrit 39.9 % (42.0-52.0); Hemoglobin 13.2 g/dL (11.7-16.6); Lymphocytes # 1.5 10^3/uL (0.8-4.8); Lymphocytes % 17.9 %; Mean Corpuscular HGB Conc 33.1 g/dL (30.0-36.0); Mean Corpuscular Hemoglobin 29.1 pg (28.0-34.0); Mean Corpuscular Volume 87.9 fl (80-94); Mean Platelet Volume 9.6 fL (7.4-10.4); Monocytes # 0.6 10^3/uL (0.2-0.9); Monocytes % 7.6 %; Neutrophils # 5.97 10^3/uL (1.8-7.7); Neutrophils % 73.1 %; Nucleated Red Blood Cells % 0 %; Platelet Count 279 10^3/cmm (130-400); Red Blood Count 4.54 10^6/uL (4.1-5.3); Red Cell Distribution Width 13.9 % (12.1-15.1); White Blood Count 8.2 10^3/uL (4.0-10.0)
[2022-07-01 11:36] LABS: Alanine Aminotransferase 12 U/L (0-41); Albumin Level 4.1 g/dL (3.5-5.2); Alkaline Phosphatase 119 U/L (40-130); Anion Gap 20.3 (5-19); Aspartate Amino Transferase 23 U/L (0-40); Blood Urea Nitrogen 31 mg/dL (8-23); Calcium 9.5 mg/dL (8.5-10.5); Carbon Dioxide 18 mmol/L (22-29); Chloride 99 mmol/L (98-107); Globulin 3.6 g/dL (1.3-4.6); Glomerular Filtration Rate 23.8 mL/min (90-130); Glucose 101 mg/dL (65-115); Lipase 17 U/L (13-60); Osmolality Calculated 283 mOsm/kg (285-295); Potassium 4.3 mmol/L (3.5-5.1); Sodium 133 mmol/L (136-145); Total Protein 7.7 g/dL (6.6-8.7)
--- NOTE | 2022-07-01 15:04 | W.ED.ABDPA2 ---
HPI - Abdominal Pain General: Chief Complaint: Abdominal Pain Stated Complaint: throwing up for three days Time Seen by Provider: 07/01/22 14:56 Source: patient Mode of arrival: ambulatory History of Present Illness: 66-year-old male presents emergency room with complaints of abdominal discomfort nausea vomiting for the last 3 days. No hematochezia melena symptoms cough can of some dysuria urgency or frequency is not noted any fever no shortness of breath or cough. He localizes most of the pain to the right lower quadrant. No previous abdominal surgeries. MD elicited complaint: abdominal pain Onset (ago): day(s) (3) Pain Consistency: constant Location: RLQ Severity: moderate Quality: cramping Radiation: none Migration to: no migration Exacerbating factors: nothing Relieving factors: nothing Associated Symptoms: Reports GI cramping, nausea and poor appetite; Denies anorexia, belching, bloating, change in bowel habits, change in stool character, chills, coffee ground emesis, constipation, diarrhea, dyspepsia, dysuria, excessive flatus, fever(s), heartburn, hematochezia, hematuria, hematemesis, fecal incontinence, loose stools, melena, syncope and vomiting Review of Systems Const: Denies: fever(s), chills, fatigue or malaise ENMT: Denies: throat pain, ear or mastoid pain, nasal discharge or nasal congestion Card: Denies: chest pain, palpitations, irregular heart rhythm or syncope Resp: Denies: dyspnea, productive cough or non-productive cough GI: Reports: abdominal pain, nausea and GI cramping; Denies: vomiting, hematemesis, coffee ground emesis, heartburn, diarrhea, constipation, bloating, belching, excessive flatus, fecal incontinence, change in bowel habits, change in stool character, hematochezia or melena : Denies: difficulty urinating, dysuria, urinary frequency, urinary urgency or hematuria Skin/Breast: Denies: rash or pruritus PFSH ED PFSH: Medical History Carotid arterial disease Chronic neck pain Claudication of lower extremity Erectile dysfunction Essential (primary) hypertension HTN (hypertension) Pulmonary nodule PVD (peripheral vascular disease) Shortness of breath Surgical History H/O knee surgery Hx of arthroscopic knee surgery Family History Father Cancer Social History Smoking and tobacco status: current every day smoker cigarettes Packs smoked per day: 0.75 Years cigarettes smoked: 40 and e-cigarettes Quit status (tobacco): has quit using tobacco Year quit tobacco: 2019 Former quit date comment: May 2020 Alcohol intake: never Physical Exam Const: GENERAL APPEARANCE: cooperative and comfortable ORIENTATION/CONSCIOUSNESS: Yes awake, Yes oriented to person, Yes oriented to place and Yes oriented to time HENMT: COMMON NORMALS: normocephalic, atraumatic and hearing grossly normal bilaterally HEAD & SCALP: normocephalic and atraumatic Resp: COMMON NORMALS: normal respiratory effort, No retractions, No use of accessory muscles and clear to auscultation bilaterally AUSCULTATION: clear to auscultation bilaterally Cardio: COMMON NORMALS: regular rate, regular rhythm and No murmurs present (Cardio) RATE: regular rate RHYTHM: regular rhythm GI: COMMON NORMALS: No hepatosplenomegaly present AUSCULTATION: Yes normoactive bowel sounds PALPATION: Yes Tenderness to palpation present (GI) Details: RLQ, No Guarding due to palpation present (GI) and Yes No hepatosplenomegaly present Extremity: COMMON NORMALS: normal to inspection, capillary refill normal, no clubbing, cyanosis or edema, no calf tenderness and no pedal edema Neuro: SENSORIUM/ORIENTATION: Yes oriented to person, Yes oriented to place and Yes oriented to time Skin: COMMON NORMALS: no rashes or lesions noted GENERAL SKIN EXAM: no rashes or lesions noted Course Vital Signs: Vital signs: Vital Signs Temperature 98.5 F 07/01/22 14:12 Pulse Rate 107 H 07/01/22 18:31 Respiratory Rate 16 07/01/22 18:31 Blood Pressure 140/65 07/01/22 18:31 Pulse Oximetry 99 07/01/22 18:31 Oxygen Delivery Me thod 07/01/22 14:12 MDM - Abdominal Pain Medical Decision Making We do not have any old records suspect patient has some chronic kidney disease. It had generally been trending up. He was given IV fluids and he is feeling better his creatinine is 2.7 but his potassium is normal. We will decrease his amlodipine to 2.5 daily and have him follow-up for repeat creatinine with his primary care doctor within the next 7 to 10 days. Medical Records I reviewed the patient's medical records. Lab Data I reviewed the patient's lab results. 07/01/22 11:04 07/01/22 11:04 Labs/Radiology: Radiology Impressions Abdomen/Pelvis CT 07/01/22 15:46 IMPRESSION: 1. Severe, stable atrophy RIGHT kidney. 2. Normal size LEFT kidney with no obstruction. 2 mm nonobstructing LEFT renal calcification. 3. Prostate enlargement. 4. Normal appendix. 5. Prior endovascular graft repair aorta. Laboratory Results WBC 8.2 10^3/uL (4.0-10.0) 07/01/22 11:04 RBC 4.54 10^6/uL (4.1-5.3) 07/01/22 11:04 Hgb 13.2 g/dL (11.7-16.6) 07/01/22 11:04 Hct 39.9 % (42.0-52.0) L 07/01/22 11:04 MCV 87.9 fl (80-94) 07/01/22 11:04 MCH 29.1 pg (28.0-34.0) 07/01/22 11:04 MCHC 33.1 g/dL (30.0-36.0) 07/01/22 11:04 RDW 13.9 % (12.1-15.1) 07/01/22 11:04 Plt Count 279 10^3/cmm (130-400) 07/01/22 11:04 MPV 9.6 fL (7.4-10.4) 07/01/22 11:04 Neut % (Auto) 73.1 % 07/01/22 11:04 Lymph % (Auto) 17.9 % 07/01/22 11:04 [place] % (Auto) 7.6 % 07/01/22 11:04 Eos % (Auto) 0.4 % 07/01/22 11:04 Baso % (Auto) 0.4 % 07/01/22 11:04 Neut # (Auto) 5.97 10^3/uL (1.8-7.7) 07/01/22 11:04 Lymph # (Auto) 1.5 10^3/uL (0.8-4.8) 07/01/22 11:04 [place] # (Auto) 0.6 10^3/uL (0.2-0.9) 07/01/22 11:04 Eos # (Auto) 0.0 10^3/uL (0.0-0.8) 07/01/22 11:04 Baso # (Auto) 0.0 10^3/uL (0.0-0.1) 07/01/22 11:04 Nucleated RBC % (auto) 0 % 07/01/22 11:04 Nucleated RBCs # 0.0 /100WBC 07/01/22 11:04 Sodium 133 mmol/L (136-145) L 07/01/22 11:04 Potassium 4.3 mmol/L (3.5-5.1) 07/01/22 11:04 Chloride 99 mmol/L (98-107) 07/01/22 11:04 Carbon Dioxide 18 mmol/L (22-29) L 07/01/22 11:04 Anion Gap 20.3 (5-19) H 07/01/22 11:04 BUN 31 mg/dL (8-23) H 07/01/22 11:04 Creatinine 2.7 mg/dL (0.7-1.2) H 07/01/22 11:04 GFR Calculation 23.8 mL/min (90-130) L 07/01/22 11:04 Glucose 101 mg/dL (65-115) 07/01/22 11:04 Calculated Osmolality 283 mOsm/kg (285-295) L 07/01/22 11:04 Calcium 9.5 mg/dL (8.5-10.5) 07/01/22 11:04 Total Bilirubin 1.0 mg/dL (0.15-1.2) 07/01/22 11:04 AST 23 U/L (0-40) 07/01/22 11:04 ALT 12 U/L (0-41) 07/01/22 11:04 Alkaline Phosphatase 119 U/L (40-130) 07/01/22 11:04 Total Protein 7.7 g/dL (6.6-8.7) 07/01/22 11:04 Albumin 4.1 g/dL (3.5-5.2) 07/01/22 11:04 Globulin 3.6 g/dL (1.3-4.6) 07/01/22 11:04 Lipase 17 U/L (13-60) 07/01/22 11:04 Urine Color Cancelled 07/01/22 18:14 Urine Color Yellow (Yellow) 07/01/22 18:14 Urine Appearance Cancelled 07/01/22 18:14 Urine Appearance Clear (CLEAR) 07/01/22 18:14 Urine pH 5 (5-7) 07/01/22 18:14 Urine pH Cancelled 07/01/22 18:14 Ur Specific [place] 1.010 (1.005-1.030) 07/01/22 18:14 Ur Specific [place] Cancelled 07/01/22 18:14 Urine Protein Cancelled 07/01/22 18:14 Urine Protein Trace (Negative) 07/01/22 18:14 Urine Glucose (UA) Cancelled 07/01/22 18:14 Urine Glucose (UA) Norm (Normal) 07/01/22 18:14 Urine Ketones 1+ (Negative) H 07/01/22 18:14 Urine Ketones Cancelled 07/01/22 18:14 Urine Blood Cancelled 07/01/22 18:14 Urine Blood Neg (Negative) 07/01/22 18:14 Urine Nitrate Cancelled 07/01/22 18:14 Urine Nitrate Negative (Negative) 07/01/22 18:14 Urine Bilirubin Cancelled 07/01/22 18:14 Urine Bilirubin Neg (Negative) 07/01/22 18:14 Prot Sulfosalicylic Acd Cancelled 07/01/22 18:14 Urine Urobilinogen Cancelled 07/01/22 18:14 Urine Urobilinogen Neg mg/dL (Negative) 07/01/22 18:14 Ur Leukocyte Esterase Cancelled 07/01/22 18:14 Ur Leukocyte Esterase Negative (Negative) 07/01/22 18:14 Urine RBC None /hpf (0-2) 07/01/22 18:14 Urine WBC None /hpf (0-5) 07/01/22 18:14 Ur Squamous Epith Cells None /hpf (0-5) 07/01/22 18:14 Amorphous Sediment 1+ /hpf 07/01/22 18:14 Urine Bacteria None /hpf (NONE) 07/01/22 18:14 Coarse Granular Casts 0-4 /lpf H 07/01/22 18:14 Discharge Plan Discharge Patient Disposition: Home Clinical Impression: [id number] kidney injury, HTN (hypertension) Condition: Stable Prescriptions: New ondansetron 4 mg tablet,disintegrating 4 mg PO Q6H PRN (Reason: nausea and vomiting) Qty: 20 0RF Changed amlodipine 2.5 mg tablet 5 mg PO DAILY Qty: 14 0RF No Action tadalafil [Cialis] 20 mg tablet 20 mg PO DAILY PRN (Reason: sexual activity) 30 Days Qty: 10 5RF Rx Instructions: administer approximately 30min before sexual activity; do not use more than 1 dose per 24hrs lisinopril 20 mg tablet 20 mg PO DAILY Qty: 90 3RF clopidogrel 75 mg tablet 75 mg PO DAILY Qty: 90 4RF aspirin 81 mg tablet,delayed release (DR/EC) 81 mg PO DAILY Qty: 90 3RF carvedilol 6.25 mg Tablet 6.25 mg PO BID Qty: 60 4RF Discharge Orders: Discharge ED (Routine); Ordered 07/01/22 Ordered By: Wm Hernandez Referrals: Bryan Tripp MD [Primary Care Provider] - Discharge Diet: Usual diet Discharge Activity: Resume usual activity Patient Instructions: Opioid Safety, Pain Management Activity Restrictions/Additional Instructions: You were seen for abdominal pain and elevated blood pressure as well as generally not feeling well. CT of your abdomen did not show any acute findings. Blood pressure improved with medications given in the emergency room. Remainder your lab work showed worsening kidney function however in light of your known chronic kidney issues uncertain how severe it is because we do not have any recent creatinines. You are given IV fluids to improve overall it is not enough to warrant hospitalization but does warrant close follow-up. Recommend that you follow-up with your primary care doctor for repeat of your kidney function within the next 10 days. Change blood pressure medications as indicated above. Coding Level of Care Code ED Viner Operator for Opheliag Fwd Exam Detailed
[2022-07-01] MEDS: sodium chloride 0.9% 1,000 ML 999 ML IV ×3 (15:17→17:26)
[2022-07-01] MEDS: morphine 4 mg/mL SDV 1 mL IVP (15:19)
[2022-07-01] MEDS: ondansetron 2 mg/ML SDV 2 mL 4 MG IVP ×2 (15:19→18:21)
[2022-07-01] MEDS: amlodipine 5 mg Tablet PO (15:37)
[2022-07-01] MEDS: hyDRALAzine 20 mg/mL INJ 1 mL IVP (15:37)
--- NOTE | 2022-07-01 15:46 | CT_ITS ---
WS: [id number] CT ABDOMEN AND PELVIS NONCONTRAST HISTORY: Abdominal pain, vomiting for 3 days. TECHNIQUE: Imaging performed through the abdomen and pelvis. Coronal and sagittal reformats are submi tted. All CT scans at [facility] use at least one of these dose optimization techniques: auto mated exposure control; mA and/or kV adjustment per patient size (includes targeted exams where dose is matched to clinical indication); or iterative reconstruction. DLP: 363.42 mGy.cm COMPARISON: 09/05/2020 Lower thorax: Lung bases are clear. Visualized heart is normal. Small hiatal hernia. Liver: Normal size liver. Hepatic steatosis along the falciform ligament. Gallbladder: Normal gallbladder. Pancreas: Normal size and attenuation. Normal pancreatic duct. No pancreatitis or mass. Spleen: Normal. Adrenal glands: Normal. No mass. Right kidney: Severe atrophy and cortical thinning. Left kidney: Normal size kidney with mild perinephric stranding. Nonobstructing 2 mm calcification ce ntral pelvis. Short stent proximal LEFT renal artery. Aorta: Endovascular repair with biiliac arterial stents. No increase in size of the aneurysm. No sign ificant stenosis at the origin of the celiac axis or SMA. No free fluid, intraperitoneal air or significant lymphadenopathy. GI tract: Normal appendix. No GI tract obstruction or diverticulosis. Abdominal wall: Small umbilical hernia contains fat only. Pelvis: Bilateral iliac arterial stents. Mildly enlarged prostate. Osseous structures: Stable mixed sclerotic and lytic changes posterior LEFT ilium. CT/CT abdomen pelvis wo con [id number] IMPRESSION: 1. Severe, stable atrophy RIGHT kidney. 2. Normal size LEFT kidney with no obstruction. 2 mm nonobstructing LEFT renal calcification. 3. Prostate enlargement. 4. Normal appendix. 5. Prior endovascular graft repair aorta.
[2022-07-01 18:48] LABS: Add Urine Microscopic? YES; Bilirubin Urine Neg (Negative); Blood Urine Neg (Negative); Glucose Urine UA Norm (Normal); Ketones Urine 1+ (Negative); Leukocyte Esterase Urine Negative (Negative); Nitrate Urine Negative (Negative); Protein Urine Trace (Negative); Urine Appearance Clear (CLEAR); Urine Color Yellow (Yellow); Urobilinogen Urine Neg (Negative); pH Urine 5 (5-7)
[2022-07-01 19:02] LABS: Amorphous Sediment Urine 1+ /hpf
[2022-07-01 19:03] LABS: Add Urine Culture? No; Coarse Granular Casts Urine 0-4 /lpf
== END 2022-07-01 18:38 | disposition home or self-care (01) ==
PROVIDERS: Physician Assistant; Emergency Provider Family Medicine; PCP Family Medicine
DX: I12.9 Hypertensive chronic kidney disease with stage 1 through stage 4 chronic kidney disease, or unspecified chronic kidney disease (principal); N18.9 Chronic kidney disease, unspecified; Z79.02 Long term (current) use of antithrombotics/antiplatelets; Z79.82 Long term (current) use of aspirin; F17.210 Nicotine dependence, cigarettes, uncomplicated
CPT/HCPCS: 36415; 74176; 80053; 81001; 83690; 85025; 96361; 96374; 96375; 96376; 99285; J0360; J2270; J2405; J7030

== ENCOUNTER → 2022-08-03 12:32 | Outpatient (BNVA) | payer MEDICARE, OTHER, SELFPAY | PROVIDERS: PCP Family Medicine; Visit Provider Family Medicine | DX: N18.9 Chronic kidney disease, unspecified (principal); Z78.9 Other specified health status; L40.9 Psoriasis, unspecified; I10 Essential (primary) hypertension; N18.2 Chronic kidney disease, stage 2 (mild); G89.29 Other chronic pain; M54.2 Cervicalgia | CPT/HCPCS: 80048 ==

== ENCOUNTER 2023-07-29 21:19 | Emergency (ER) | payer MEDICARE, OTHER, SELFPAY ==
[2023-07-29 21:23] VITALS: BP 218/91; PULSE 84; RESP 18; TEMP 36.6; O2SAT 98
--- NOTE | 2023-07-29 21:29 | W.ED.ANIMALB ---
HPI - Animal Bite General: Chief Complaint: Animal Bite Stated Complaint: hand wound Time Seen by Provider: 07/29/23 21:21 History of Present Illness: 67-year-old male patient comes in today with injury to the right dorsal hand. Patient was playing with his dogs when he reached to pet the dog and it snapped at him catching the back of his hand. Patient reports the dog is a husky. Patient has good range of motion of the hand. Patient cannot recall his last tetanus. Patient takes Plavix for blood thinner. Patient appears nontoxic. Patient appears in mild to moderate pain. MD complaint: animal bite Onset (ago): hour(s) Animal: dog Description of animal: household pet Mechanism: bite Location: other Location - Extremities: Right: hand Pain description: sharp Severity scale (1-10): 8 Context: playing with animal Associated symptoms: Reports bleeding Treatments prior to arrival: pressure Review of Systems General: Reports: 10 or more systems reviewed and unremarkable except in HPI and below Skin/Breast: Reports: new lesions PFS ED PFSH: Medical History (Updated 07/29/23 @ 22:18 by BETTE Huston) Psoriasis Shortness of breath Carotid arterial disease Pulmonary nodule Chronic neck pain Claudication of lower extremity Erectile dysfunction Essential (primary) hypertension PVD (peripheral vascular disease) HTN (hypertension) Surgical History Hx of arthroscopic knee surgery H/O knee surgery Family History Father Cancer Social History Smoking and tobacco/nicotine status: current every day tobacco/nicotine user cigarettes Packs smoked per day: 0.75 Years cigarettes smoked: 40 and e-cigarettes Quit status (tobacco/nicotine): has quit using Year quit tobacco: 2019 Former quit date comment: May 2020 Alcohol intake: never Substance/Drug Use: never Physical Exam Const: COMMON NORMALS: alert HENMT: COMMON NORMALS: normocephalic HEAD & SCALP: normocephalic Neck/C-Spine: COMMON NORMALS: full ROM Resp: COMMON NORMALS: normal respiratory effort and clear to auscultation bilaterally AUSCULTATION: clear to auscultation bilaterally Cardio: COMMON NORMALS: regular rate and regular rhythm RATE: regular rate RHYTHM: regular rhythm Back/Pelvis: COMMON NORMALS: thoracic and lumbar spine normal to inspection Extremity: RIGHT UPPER EXTREMITY: Yes hand & digits (6 cm flap laceration right dorsal hand) Right hand and digits: Yes inspection, Yes palpation, Yes ROM exam, Yes neurovascular exam and Yes tendon exam Neuro: SENSORIUM/ORIENTATION: Yes alert Procedures Laceration Laceration 1: Site: hand Side (If applicable): right Size (cm): 6 Local Anesthetic: lidocaine 1% and with epi Amount of anesthesia used (mL): 6 Pre-repair: wound explored and irrigated extensively Skin layer closed with: vicryl Size (cm): 4-0 Number of sutures: 10 Technique: simple, interrupted Course Vital Signs: Vital signs: Vital Signs Temperature 97.8 F 07/29/23 21:23 Pulse Rate 80 07/29/23 22:29 Respiratory Rate 18 07/29/23 22:29 Blood Pressure 218/91 07/29/23 21:23 Pulse Oximetry 97 07/29/23 22:29 Oxygen Delivery Me thod Room Air 07/29/23 21:23 MDM - Animal Bite Medical Decision Making Patient comes in today for injury to the dorsal right hand. Patient was playing with his pet when it excellently bit him on the back of the hand. Patient has a 6 cm flap laceration to the dorsal right hand. Normal tendon function, normal neurovascular sensation and cap refill. Tetanus cannot be recalled. Differential diagnosis includes fracture, foreign body, tendon injury, need for prophylaxis tetanus, need for prophylaxis antibiotic. Wound was evaluated and no signs of foreign body fracture or tendon injury was noted. Wound was thoroughly irrigated and closed with sutures. Patient tolerated well. Patient will be kept on Augmentin for coverage of infection. Patient's tetanus was updated. Patient reported understanding of care plan need for follow-up or return to the ER. No radiology studies performed this visit Discharge Plan Discharge Patient Disposition: Home Clinical Impression: Dog bite Qualifiers: Encounter type: initial encounter Qualified Code(s): W54.0XXA - Bitten by dog, initial encounter Laceration of hand, right Qualifiers: Encounter type: initial encounter Foreign body presence: without foreign body Qualified Code(s): S61.411A - Laceration without foreign body of right hand, initial encounter Condition: Stable Prescriptions: New amoxicillin-pot clavulanate 875-125 mg tablet 1 tab PO BID 7 Days Qty: 14 0RF hydrocodone-acetaminophen 5-325 mg tablet 1 tab PO Q6H PRN (Reason: pain (scale score 7-10)) 3 Days Qty: 10 0RF Rx Instructions: dx. laceration hand No Action lisinopril 20 mg tablet 40 mg PO DAILY Qty: 90 3RF amlodipine 2.5 mg tablet 2.5 mg PO DAILY Qty: 14 0RF tadalafil [Cialis] 20 mg tablet 20 mg PO DAILY PRN (Reason: sexual activity) 30 Days Qty: 10 5RF Rx Instructions: administer approximately 30min before sexual activity; do not use more than 1 dose per 24hrs clopidogrel 75 mg tablet 75 mg PO DAILY Qty: 90 4RF aspirin 81 mg tablet,delayed release (DR/EC) 81 mg PO DAILY Qty: 90 3RF hydrocodone-acetaminophen 5-325 mg tablet 1 tab PO Q12H PRN (Reason: pain) 30 Days Qty: 60 0RF calcipotriene 0.005 % cream 1 applic topical DAILY Qty: 120 2RF Rx Instructions: rub in gently and completely carvedilol 6.25 mg Tablet 6.25 mg PO BID Qty: 60 4RF Discharge Orders: Discharge ED (Routine); Ordered 07/29/23 Ordered By: Vikash Mckinney Referrals: Bryan Tripp MD [Primary Care Provider] - Discharge Diet: Usual diet Discharge Activity: Increase activity as tolerated Patient Instructions: Care For Your Stitches (ED), Laceration (ED) Activity Restrictions/Additional Instructions: Keep wound clean and dry. Is very important keep the wound as dry as possible for the next 48 hours. May leave the initial dressing on as long as it does not become wet or soiled. If the dressing becomes wet or soiled you need to remove the dressing and replace it with a dry nonstick pad and gauze for support. Sutures may be removed after 10 days. The sutures are absorbable but can be removed sooner. Monitor site for signs of infection such as fever, increasing redness and swelling, and purulent drainage. Take oral antibiotics for prophylaxis against infection. Follow-up with primary care in 1 week for recheck. Return to ED for new concerns or worsening symptoms. Coding Level of Care Code ED Director Of Regional Sales for Estuardo Gomes
[2023-07-29] MEDS: amoxicillin-clav 875-125 mg Tablet 1 TAB PO (21:41)
[2023-07-29] MEDS: tetanus-dipt-pertussis 0.5 mL SDV IM (21:42)
[2023-07-29] MEDS: HYDROcodone-acetaminophen 10-325 mg Tablet 1 TAB PO (21:42)
[2023-07-29 22:29] VITALS: PULSE 80; RESP 18; O2SAT 97
== END 2023-07-29 22:31 | disposition home or self-care (01) ==
PROVIDERS: Emergency Provider Nurse Practitioner Family; PCP Family Medicine
DX: S61.451A Open bite of right hand, initial encounter (principal); W54.0XXA Bitten by dog, initial encounter; Z79.02 Long term (current) use of antithrombotics/antiplatelets; Z79.82 Long term (current) use of aspirin; F17.210 Nicotine dependence, cigarettes, uncomplicated; I10 Essential (primary) hypertension; Z23 Encounter for immunization
CPT/HCPCS: 12002; 90471; 90715; 99283

== ENCOUNTER → 2023-08-11 10:28 | Outpatient (BNVA) | payer MEDICARE, OTHER, SELFPAY | PROVIDERS: PCP Family Medicine; Visit Provider Family Medicine | DX: I12.9 Hypertensive chronic kidney disease with stage 1 through stage 4 chronic kidney disease, or unspecified chronic kidney disease (principal); N18.2 Chronic kidney disease, stage 2 (mild) | CPT/HCPCS: 80053; 85025 ==

== ENCOUNTER → 2023-08-25 15:06 | Outpatient (BNVA) | payer MEDICARE, OTHER, SELFPAY | PROVIDERS: PCP Family Medicine; Visit Provider Dermatology | DX: L21.8 Other seborrheic dermatitis (principal); L57.0 Actinic keratosis; L40.0 Psoriasis vulgaris; L82.1 Other seborrheic keratosis | CPT/HCPCS: 17000; 99204 ==

== ENCOUNTER → 2023-12-09 15:35 | Outpatient (BNVA) | payer MEDICARE, OTHER, SELFPAY | PROVIDERS: PCP Family Medicine; Visit Provider Nurse Practitioner Family | DX: L40.0 Psoriasis vulgaris (principal); L57.0 Actinic keratosis; S40.911A Unspecified superficial injury of right shoulder, initial encounter; X58.XXXA Exposure to other specified factors, initial encounter; L82.1 Other seborrheic keratosis | CPT/HCPCS: 17000; 99214 ==

== ENCOUNTER → 2024-06-12 13:34 | Outpatient (BNVA) | payer MEDICARE, OTHER, SELFPAY | PROVIDERS: PCP Family Medicine; Visit Provider Nurse Practitioner Family | DX: L40.0 Psoriasis vulgaris (principal); L21.8 Other seborrheic dermatitis | CPT/HCPCS: 99214 ==

== ENCOUNTER → 2024-08-17 10:07 | Outpatient (BNVA) | payer MEDICARE, OTHER, SELFPAY | PROVIDERS: PCP Family Medicine; Visit Provider Family Medicine | DX: I10 Essential (primary) hypertension (principal) | CPT/HCPCS: 80053; 85025 ==

== ENCOUNTER → 2024-11-13 10:24 | Outpatient (BNVA) | payer MEDICARE, OTHER, SELFPAY | PROVIDERS: PCP Family Medicine; Visit Provider Family Medicine | DX: I10 Essential (primary) hypertension (principal); N18.2 Chronic kidney disease, stage 2 (mild); M54.2 Cervicalgia; G89.29 Other chronic pain | CPT/HCPCS: 80053 ==

== ENCOUNTER 2025-05-24 11:02 | Outpatient (CLI) | payer MEDICARE, OTHER, SELFPAY ==
--- NOTE | 2025-05-24 11:06 | XR_ITS ---
WS: [id number] Exam: XR thoracic spine 3V* [id number] Date/Time of Exam: 05/24/2025 11:12 AM Reason For Exam: acute thoracic back pain No fracture or malalignment. Slight spondylosis. Mild levoscoliosis. Normal paraspinal soft tissues. XR/XR thoracic spine 3V* [id number] IMPRESSION: 1. No fracture or malalignment. 2. Minimal degenerative changes and slight scoliosis.
== END 2025-05-24 11:03 | disposition home or self-care (01) ==
LOC: RAD 11:03
PROVIDERS: PCP Family Medicine; Visit Provider Family Medicine
DX: S22.050A Wedge compression fracture of T5-T6 vertebra, initial encounter for closed fracture (principal); X58.XXXA Exposure to other specified factors, initial encounter; M47.894 Other spondylosis, thoracic region; M41.84 Other forms of scoliosis, thoracic region
CPT/HCPCS: 72072

== ENCOUNTER 2025-06-12 14:46 | Emergency (ER) | payer MEDICARE, OTHER, SELFPAY ==
[2025-06-12 15:01] VITALS: BP 146/79; PULSE 110; RESP 16; TEMP 37; O2SAT 100
--- NOTE | 2025-06-12 15:06 | W.ED.BACK ---
HPI - Back Pain/Injury General: Chief Complaint: Back Pain/Injury Stated Complaint: back pain, pain from shingles Time Seen by Provider: 06/12/25 15:05 Source: patient Mode of arrival: ambulatory Limitations: no limitations History of Present Illness: Patient is a very nice 69-year-old male here with a complaint of pain related to his shingles. Patient states he saw his PCP on 05/24 for mid back pain. He does chronically have back pain. There was no rash present then. Patient states he was placed on steroids that gave me shingles (he said he read online this was a potential side effect). He was then subsequently seen on 05/30 when the classic shingles rash had appeared. He was placed on anti-viral medication which he has since finished. He was also placed on gabapentin 100 mg 3 times daily which she has also finished. Patient states his pain is excruciating. He has also been doing lidocaine patches and lidocaine sprays. He states his pain was so intense yesterday evening that he spent most of the night sobbing in discomfort. Describes pain as a burning nerve pain. MD elicited complaint: back pain Pertinent past history: prior back pain and other (recent shingles) Onset (ago): day(s) Timing: constant Severity: severe Quality: burning Location: right upper back Exacerbating factors: none Relieving factors: none Associated symptoms: Deny abdominal pain, chills, dysuria, fatigue, fever(s) or hematuria Work related injury: No Related Data Previous Rx's ?Medication ?Instructions ?Recorded aspirin 81 mg tablet,delayed 81 mg PO DAILY #90 tabs 11/29/20 release calcipotriene 0.005 % topical cream 1 applic topical DAILY #120 grams 07/12/23 carvedilol 6.25 mg tablet 6.25 mg PO ONCE #90 tabs 08/11/23 amlodipine 2.5 mg tablet 2.5 mg PO DAILY #90 tabs 06/15/24 tadalafil 20 mg tablet See Rx Instructions .Route 10/03/24 .COMPLEX #10 tabs prednisone 20 mg tablet 20 mg PO .COMPLEX #20 tabs 05/24/25 hydrocodone 5 mg-acetaminophen 325 1 tab PO TID PRN pain 30 days #90 05/28/25 mg tablet tabs lisinopril 20 mg tablet See Rx Instructions .Route 05/29/25 .COMPLEX #180 tabs gabapentin 100 mg capsule 100 mg PO TID 10 days #30 caps 05/30/25 valacyclovir 1 gram tablet 1,000 mg PO Q8H 10 days #30 tabs 05/30/25 gabapentin 100 mg capsule 200 mg (2 x 100 mg) PO TID #120 06/12/25 caps hydrocodone 10 mg-acetaminophen 1 tab PO Q6H PRN pain #20 tabs 06/12/25 325 mg tablet Allergies Allergy/AdvReac Type Severity Reaction Status Date / Time No Known Allergies Allergy Verified 05/30/25 14:22 Review of Systems Const: Denies: fever(s), chills, body aches, fatigue or malaise Card: Reports: chest pain (shingles rash wraps from chest to back on R side) Resp: Denies: dyspnea GI: Denies: abdominal pain : Denies: flank pain, dysuria or hematuria Musc: Reports: back pain; Denies: neck pain, extremity pain, extremity swelling, joint pain, joint swelling or joint redness Skin/Breast: Reports: rash, skin pain and skin tenderness Neuro: Denies: headache(s), numbness in extremities, weakness in extremities, sensory changes or dizziness PFSH ED PFSH: Medical History Psoriasis Shortness of breath Carotid arterial disease Pulmonary nodule Chronic neck pain Claudication of lower extremity Erectile dysfunction Essential (primary) hypertension PVD (peripheral vascular disease) HTN (hypertension) Surgical History Hx of arthroscopic knee surgery H/O knee surgery Family History Father Cancer Social History Smoking and tobacco/nicotine status: former use of tobacco/nicotine Quit status (tobacco/nicotine): has quit using Year quit tobacco: 2019 Former quit date comment: May 2020 Alcohol intake: never Substance/Drug Use: never Physical Exam Const: COMMON NORMALS: no acute distress, average body habitus, patient oriented x3, no limitations, healthy appearing, alert and well nourished Neck/C-Spine: COMMON NORMALS: negative for no lymphadenopathy GENERAL: Yes normal visual inspection Chest: COMMONS NORMALS: normal palpation of entire chest wall Chest images (male):  1. shingles rash starting on R anterior chest and wrapping around to R back-not crossing midline Resp: COMMON NORMALS: normal respiratory effort and clear to auscultation bilaterally AUSCULTATION: clear to auscultation bilaterally Cardio: COMMON NORMALS: regular rate and regular rhythm RATE: regular rate RHYTHM: regular rhythm : COMMON NORMALS: Yes no CVA tenderness BLADDER/KIDNEY EXAM: Yes no CVA tenderness Back/Pelvis: COMMON NORMALS: no CVA tenderness THORACIC SPINE/UPPER BACK: Yes thoracic ROM normal, Yes thoracic spinal tenderness and No paraspinal muscle spasm LUMBAR SPINE/LOWER BACK: No lumbar spinal tenderness and No paraspinal muscle tenderness BACK IMAGE (MALE):  1. continued shingles rash Extremity: GENERAL: Yes normal exam except as noted Neuro: COMMON NORMALS: patient oriented x3, moves all extremities, no focal motor deficits, no sensory deficits noted and gait normal SENSORIUM/ORIENTATION: Yes alert Skin: RASHES: rashes noted (herpes zoster ) Course Vital Signs: Vital signs: Vital Signs Temperature 98.6 F 06/12/25 15:01 Pulse Rate 110 H 06/12/25 15:01 Respiratory Rate 16 06/12/25 15:01 Blood Pressure 146/79 06/12/25 15:01 Pulse Oximetry 100 06/12/25 15:01 MDM - Back Pain/Injury Medical Decision Making Patient here for significant discomfort related to his herpes zoster. He has been doing lidocaine patches as well as lidocaine spray. We discussed capsaicin cream. Patient will require more than [id number] analgesics. Will place him on hydrocodone 10 mg q 4-6 hours and gabapentin 200mg TID and can increase this after 2 days. Recommend he follow-up with primary care soon as possible so he can monitor for response and adjust as needed. Medical Records I reviewed the patient's medical records. No radiology studies performed this visit Discharge Plan Discharge Patient Disposition: Home Clinical Impression: Acute pain associated with herpes zoster Condition: Stable Prescriptions: New gabapentin 100 mg capsule 200 mg PO TID Qty: 120 0RF Rx Instructions: Start 200mg 3x daily. May increase to 300mg 3x daily after 2 days if needed. hydrocodone-acetaminophen 10-325 mg tablet 1 tab PO Q6H PRN (Reason: pain) Qty: 20 0RF No Action valacyclovir 1 gram tablet 1,000 mg PO Q8H 10 Days Qty: 30 0RF gabapentin 100 mg capsule 100 mg PO TID 10 Days Qty: 30 0RF carvedilol 6.25 mg tablet 6.25 mg PO ONCE Qty: 90 3RF prednisone 20 mg tablet 20 mg PO .COMPLEX Qty: 20 0RF Rx Instructions: 3 tabs day 1 and 2, decrease by one half tablet every other day until gone aspirin 81 mg tablet,delayed release (DR/EC) 81 mg PO DAILY Qty: 90 3RF calcipotriene 0.005 % cream 1 applic topical DAILY Qty: 120 2RF Rx Instructions: rub in gently and completely amlodipine 2.5 mg tablet 2.5 mg PO DAILY Qty: 90 3RF tadalafil 20 mg tablet See Rx Instructions .ROUTE .COMPLEX Qty: 10 5RF Dose Instruction: TAKE 1 TABLET BY MOUTH EVERY DAY NEEDED FOR SEXUAL ACTIVITY FOR 30 DAYS Rx Instructions: TAKE 1 TABLET BY MOUTH EVERY DAY NEEDED FOR SEXUAL ACTIVITY FOR 30 DAYS hydrocodone-acetaminophen 5-325 mg tablet 1 tab PO TID PRN (Reason: pain) 30 Days Qty: 90 0RF lisinopril 20 mg tablet See Rx Instructions .ROUTE .COMPLEX Qty: 180 1RF Dose Instruction: TAKE 2 TABLETS BY MOUTH DAILY Rx Instructions: TAKE 2 TABLETS BY MOUTH DAILY Discharge Orders: Discharge ED (Routine); Ordered 06/12/25 Ordered By: Massiel Rubio Referrals: Bryan Tripp MD [Primary Care Provider, Family Practice] Patient Instructions: Gabapentin (By mouth), Shingles (ED), Opioid Safety, Pain Management, Patient Portal & [facility] Instructions Activity Restrictions/Additional Instructions: As we discussed, you can continue topical therapies including lidocaine patches and sprays to help with discomfort. We also discussed topical capsaicin cream. We will place you on gabapentin and hydrocodone to help with discomfort. I would like you to follow-up with your primary care provider as soon as possible so they can reassess your discomfort level and adjust therapies as needed. Print Language: Swedish Coding Level of Care Code ED Administrative Office Assistant for Estuardo Gomes
== END 2025-06-12 15:40 | disposition home or self-care (01) ==
PROVIDERS: Emergency Provider Physician Assistant; PCP Family Medicine
DX: B02.9 Zoster without complications (principal); Z79.82 Long term (current) use of aspirin; Z87.891 Personal history of nicotine dependence; I25.10 Atherosclerotic heart disease of native coronary artery without angina pectoris; I10 Essential (primary) hypertension
CPT/HCPCS: 99283